=== PATIENT | male | born 1990 | race Caucasian/White ===

== ENCOUNTER 2019-10-04 13:55 | Emergency (ER) | payer SELFPAY ==
[2019-10-04] MEDS ORDERED: Albuterol 6.7 GM Inhaler INH ONE (15:06)
--- NOTE | 2019-10-04 15:16 | EDM.PDOC ---
ED HPI GENERAL MEDICAL PROBLEM - General Chief Complaint: Asthma Stated Complaint: NEEDS A INHALER REFILL Time Seen by Provider: 10/04/19 14:39 Source of Information: Reports: Patient, RN Notes Reviewed History Limitations: Reports: No Limitations - History of Present Illness INITIAL COMMENTS - FREE TEXT/NARRATIVE: Patient is a 29-year-old male who presents to the ED for the evaluation of his asthma. Patient states that he is up here for work, he has a history of asthma , and he ran out of his inhaler a few days ago. He states that he takes his inhaler as needed. He is being cared for by a primary care provider in [place] at the time, and has not established care in this area. Patient states he is having an increased tight cough over the last few days since he ran out of his inhaler, but is not having any fevers or chills or any other cold-like symptoms. He comes to the ER today for a refill of his albuterol inhaler. - Related Data Allergies Allergy/AdvReac Type Severity Reaction Status Date / Time Penicillins Allergy Airway Verified 10/04/19 14:41 Tightness ketchup Allergy Rash Uncoded 10/04/19 14:41 Home Meds: Home Meds Albuterol [Proventil HFA] 1 puff INH Q4H PRN #1 inhaler 10/04/19 [Rx] Past Medical History Respiratory History: Reports: Asthma Dermatologic History: Reports: Eczema Social & Family History - Tobacco Use Smoking Status *Q: Current Every Day Smoker Years of Tobacco use: 15 Packs/Tins Daily: 1 - Caffeine Use Caffeine Use: Reports: Coffee - Recreational Drug Use Recreational Drug Use: No ED ROS GENERAL - Review of Systems Review Of Systems: Comprehensive ROS is negative, except as noted in HPI. Constitutional: Denies: Fever, Chills Respiratory: Reports: Cough. Denies: Shortness of Breath, Wheezing Cardiovascular: Denies: Chest Pain GI/Abdominal: Denies: Abdominal Pain, Nausea, Vomiting ED EXAM, GENERAL - Physical Exam Exam: See Below Exam Limited By: No Limitations General Appearance: Alert, WD/WN, No Apparent Distress Throat/Mouth: Normal Inspection, Normal Lips, Normal Teeth, Normal Gums, Normal Oropharynx, Normal Voice, No Airway Compromise Head: Atraumatic, Normocephalic Neck: Normal Inspection Respiratory/Chest: No Respiratory Distress, Lungs Clear (slightly diminished breath sounds bilaterally), Normal Breath Sounds, No Accessory Muscle Use, Chest Non-Tender Cardiovascular: Normal Peripheral Pulses, Regular Rate, Rhythm, No Edema, No Murmur Peripheral Pulses: 3+: Radial (L), Radial (R) Neurological: Alert, Oriented, Normal Cognition, No Motor/Sensory Deficits Psychiatric: Normal Affect, Normal Mood Skin Exam: Warm, Dry, Intact, Normal Color, No Rash Course - Vital Signs Last Recorded V/S: Last Vital Signs Temp 99.0 F 10/04/19 14:46 Pulse 75 10/04/19 14:46 Resp 20 10/04/19 14:46 BP 135/78 10/04/19 14:46 Pulse Ox 94 L 10/04/19 14:46 - Orders/Labs/Meds Orders: Active Orders 24 hr Category Date Time Status RT Post Treatment Assessment [RC] Click to Edit Care 10/04/19 15:07 Ordered RT Pre-Treatment Assessment [RC] Click to Edit Care 10/04/19 15:07 Ordered Albuterol [Proventil HFA] Med 10/04/19 15:06 Once See Dose Instructions INH ONETIME ONE Medication Orders Albuterol (Proventil Hfa) 0 gm INH ONETIME ONE Stop: 10/04/19 15:07 Meds: Medications Generic Name Dose Route Start Last Admin Trade Name Levar PRN Reason Stop Dose Admin Albuterol 0 gm 10/04/19 15:06 Proventil Hfa INH 10/04/19 15:07 ONETIME ONE - Re-Assessments/Exams Free Text/Narrative Re-Assessment/Exam: 10/04/19 15:17 Patient presents to the ED for a refill of his albuterol inhaler. At this time I will provide this to the patient, and he will need to follow-up with a primary care provider, I did suggest since he is living in [place] that he follow-up at [facility] with Georgina Patel, who is a PA there. They are usually pretty quick to get patients in. Otherwise he is more than welcome to establish care at our facility as well. He states that he will establish care with a primary care provider, as he will need a refill of his Advair inhaler sometime shortly as well. He will be given 1 inhaler in the ER today, and I did send a prescription to the [place] drug store for another. Departure - Departure Time of Disposition: 15:18 Disposition: Home, Self-Care 01 Condition: Good Clinical Impression: Encounter for medication refill, History of asthma - Discharge Information *PRESCRIPTION DRUG MONITORING PROGRAM REVIEWED*: No *COPY OF PRESCRIPTION DRUG MONITORING REPORT IN PATIENT MERRY: No Instructions: Medicine Refill at the Emergency Department, Asthma, Adult, Easy- to-Read Referrals: PCP,None [Primary Care Provider] - Additional Instructions: You were evaluated at the ER today regarding your asthma and need for a refill of your inhaler. You were given an inhaler at today's ER visit, and a prescription was sent on your behalf to the [place] pharmacy. You will need to establish care with a primary care provider, if the [place] clinic for herbal to you, their telephone number is [phone], please call Sunday morning and try to establish care with a provider at that facility, they are open Sunday through Sunday from around 8 AM to 4 PM. You may also follow-up with our clinic, for further management, any family practice provider would be able to provide you with the services. Please do not hesitate to return to the ER at any time if your symptoms should change or worsen. Sepsis Event Note - Evaluation Sepsis Screening Result: No Definite Risk - Focused Exam Vital Signs: Vital Signs Temp Pulse Resp BP Pulse Ox 10/04/19 14:46 99.0 F 75 20 135/78 94 L Date Exam was Performed: 10/04/19 Time Exam was Performed: 15:07 - My Orders Last 24 Hours: My Active Orders 10/04/19 15:06 Albuterol [Proventil HFA] See Dose Instructions INH ONETIME ONE 10/04/19 15:07 RT Post Treatment Assessment [RC] Click to Edit RT Pre-Treatment Assessment [RC] Click to Edit - Assessment/Plan Last 24 Hours: My Active Orders 10/04/19 15:06 Albuterol [Proventil HFA] See Dose Instructions INH ONETIME ONE 10/04/19 15:07 RT Post Treatment Assessment [RC] Click to Edit RT Pre-Treatment Assessment [RC] Click to Edit
== END 2019-10-04 15:36 | disposition home or self-care (01) ==
LOC: JD.ED 13:55
DX: Z76.0 Encounter for issue of repeat prescription (principal); J45.909 Unspecified asthma, uncomplicated; F17.210 Nicotine dependence, cigarettes, uncomplicated; Z88.0 Allergy status to penicillin; Z91.018 Allergy to other foods
CPT/HCPCS: 99282; A9270; 99283

== ENCOUNTER 2020-03-28 12:06 | Emergency (ER) | payer SELFPAY ==
[2020-03-28] MEDS ORDERED: Albuterol 6.7 GM Inhaler INH ONE (12:32)
--- NOTE | 2020-03-28 12:36 | EDM.PDOC ---
ED HPI GENERAL MEDICAL PROBLEM - General Chief Complaint: Respiratory Problem Stated Complaint: SOB Time Seen by Provider: 03/28/20 12:29 Source of Information: Reports: Patient History Limitations: Reports: No Limitations - History of Present Illness INITIAL COMMENTS - FREE TEXT/NARRATIVE: The patient presents with shortness of breath. He has a history of asthma and he is on an inhaler. His inhaler is out and he does not get paid until tomorrow. He has no fever, chills, cough, congestion, runny nose, or chest pain. Onset: Gradual Severity: Mild Improves with: Reports: None Worsens with: Reports: None Associated Symptoms: Reports: Shortness of Breath. Denies: Chest Pain, Cough, Fever/Chills, Headaches, Nausea/Vomiting - Related Data Allergies Allergy/AdvReac Type Severity Reaction Status Date / Time Penicillins Allergy Airway Verified 03/28/20 12:24 Tightness ketchup Allergy Rash Uncoded 03/28/20 12:24 Home Meds: Home Meds Albuterol [Proventil HFA] 1 puff INH Q4H PRN #1 inhaler 10/04/19 [Rx] Past Medical History HEENT History: Reports: None Cardiovascular History: Reports: None Respiratory History: Reports: Asthma Gastrointestinal History: Reports: None Genitourinary History: Reports: None Musculoskeletal History: Reports: Fracture Neurological History: Reports: None Psychiatric History: Reports: None Endocrine/Metabolic History: Reports: Obesity/BMI 30+ Hematologic History: Reports: None Immunologic History: Reports: None Oncologic (Cancer) History: Reports: None Dermatologic History: Reports: Eczema - Infectious Disease History Infectious Disease History: Reports: None - Past Surgical History Musculoskeletal Surgical History: Reports: Shoulder Replacement Social & Family History - Tobacco Use Smoking Status *Q: Never Smoker - Caffeine Use Caffeine Use: Reports: None - Recreational Drug Use Recreational Drug Use: No ED ROS GENERAL - Review of Systems Review Of Systems: See Below Constitutional: Reports: No Symptoms HEENT: Reports: No Symptoms Respiratory: Reports: Shortness of Breath, Wheezing. Denies: Cough Cardiovascular: Reports: No Symptoms Endocrine: Reports: No Symptoms GI/Abdominal: Reports: No Symptoms ED EXAM, GENERAL - Physical Exam Exam: See Below Exam Limited By: No Limitations General Appearance: Alert, No Apparent Distress Ears: Normal External Exam Nose: Normal Inspection Head: Atraumatic, Normocephalic Neck: Normal Inspection Respiratory/Chest: No Respiratory Distress, Wheezing Cardiovascular: Regular Rate, Rhythm, No Edema, No Murmur GI/Abdominal: Soft, Non-Tender, No Organomegaly, No Mass Extremities: Normal Inspection Neurological: Alert, Oriented, No Motor/Sensory Deficits Course - Vital Signs Last Recorded V/S: Last Vital Signs Temp 97.6 F 03/28/20 12:21 Pulse 77 03/28/20 12:21 Resp 20 03/28/20 12:21 BP 148/99 H 03/28/20 12:21 Pulse Ox 93 L 03/28/20 12:21 - Orders/Labs/Meds Orders: Active Orders 24 hr Category Date Time Status RT Post Treatment Assessment [RC] Click to Edit Care 03/28/20 12:32 Ordered RT Pre-Treatment Assessment [RC] Click to Edit Care 03/28/20 12:32 Ordered Albuterol [Proventil HFA] Med 03/28/20 12:32 Once See Dose Instructions INH ONETIME ONE - Re-Assessments/Exams Free Text/Narrative Re-Assessment/Exam: 03/28/20 12:35 I have ordered an albuterol inhaler. Departure - Departure Time of Disposition: 12:35 Disposition: Home, Self-Care 01 Condition: Good Clinical Impression: Exacerbation of asthma Qualifiers: Asthma severity: mild Asthma persistence: intermittent Qualified Code(s): J45.21 - Mild intermittent asthma with (acute) exacerbation - Discharge Information *PRESCRIPTION DRUG MONITORING PROGRAM REVIEWED*: Not Applicable *COPY OF PRESCRIPTION DRUG MONITORING REPORT IN PATIENT MERRY: Not Applicable Referrals: PCP,None [Primary Care Provider] - Additional Instructions: Use the inhaler 2 puffs every 4 to 6 hours as needed for shortness of breath and wheezing. Please return if you are worse. Sepsis Event Note (ED) - Evaluation Sepsis Screening Result: No Definite Risk - Focused Exam Vital Signs: Vital Signs Temp Pulse Resp BP Pulse Ox 03/28/20 12:21 97.6 F 77 20 148/99 H 93 L - My Orders Last 24 Hours: My Active Orders 03/28/20 12:32 RT Post Treatment Assessment [RC] Click to Edit RT Pre-Treatment Assessment [RC] Click to Edit Albuterol [Proventil HFA] See Dose Instructions INH ONETIME ONE - Assessment/Plan Last 24 Hours: My Active Orders 03/28/20 12:32 RT Post Treatment Assessment [RC] Click to Edit RT Pre-Treatment Assessment [RC] Click to Edit Albuterol [Proventil HFA] See Dose Instructions INH ONETIME ONE
== END 2020-03-28 12:42 | disposition home or self-care (01) ==
LOC: JD.ED 12:06
DX: J45.21 Mild intermittent asthma with (acute) exacerbation (principal); E66.9 Obesity, unspecified; Z88.0 Allergy status to penicillin; Z91.018 Allergy to other foods; Z98.890 Other specified postprocedural states; Z68.30 Body mass index [BMI] 30.0-30.9, adult
CPT/HCPCS: 99284; A9270; 99283

== ENCOUNTER 2020-05-13 16:39 | Emergency (ER) | payer SELFPAY ==
--- NOTE | 2020-05-13 18:17 | EDM.PDOC ---
ED HPI GENERAL MEDICAL PROBLEM - General Chief Complaint: Respiratory Problem Stated Complaint: ANXIETY ISSUES Time Seen by Provider: 05/13/20 17:07 Source of Information: Reports: Patient History Limitations: Reports: No Limitations - History of Present Illness INITIAL COMMENTS - FREE TEXT/NARRATIVE: Mr. Edwards is a very pleasant 30-year-old gentleman with a past medical history significant for suspected asthma and untreated anxiety, who, medical records indicate, was seen in this ED on both 10/04/2019 and 03/28/2020, both for tautness of breath, possibly due to an asthma exacerbation, and request for refills of his albuterol MDI. He now presents to the ED because "I thought I was having a heart attack". The patient states that he has been abstaining from coffee recently, but drank some between 6:00 and 8:00 this morning. He then developed chest tightness, lightheadedness, rapid palpitations, and dyspnea around 10:00 until noon. He has coughed occasionally, productive of greenish sputum. No recent fever. The patient states that he used his albuterol MDI 10 or 20 times over the span of a few hours, without any significant improvement in his symptoms. The patient states that he has a history of anxiety, but has not had any treatment for the past 1 to 2 years. He states that he has been under increased stress at work recently. He states that he has a history of heroin abuse, clean for 8 years, but that coworkers have been using methamphetamine, and he is afraid of sliding back into drug use. He states that his employer is aware of the methamphetamine, but is not doing anything about it. He states that he plans to find a new job. The patient states that he was seen at the walk-in clinic about 1 week ago, also for an albuterol refill. He was prescribed albuterol by nebulizer, which he does not yet have. The patient states that he does not own a peak flow meter or space chamber. He has not previously undergone PFTs. Here in the ED, the patient's initial BP is found to be mildly elevated at 136/95, otherwise, he is hemodynamically stable, afebrile, saturating 98% on room air. Other than the above symptoms, the patient denies having a recent fever, chills, sore throat, ear pain, nasal or sinus congestion, chest pain, palpitations, nausea, vomiting, constipation, diarrhea, abdominal pain, urinary symptoms, recent weight gain or weight loss, recent bloody bowel movements or black bowel movements, recent joint aches, headaches, or rashes. The patient does not have a PCP. - Related Data Allergies Allergy/AdvReac Type Severity Reaction Status Date / Time Penicillins Allergy Severe Airway Verified 05/13/20 17:12 Tightness ketchup Allergy Severe Rash Uncoded 05/13/20 17:12 Home Meds: Home Meds Albuterol [Proventil HFA] 1 puff INH Q4H PRN #1 inhaler 10/04/19 [Rx] Past Medical History Respiratory History: Reports: Asthma (suspected, not tested) Musculoskeletal History: Reports: Fracture (right scapula) Psychiatric History: Reports: Anxiety (untreated x 2017) Endocrine/Metabolic History: Reports: Obesity/BMI 30+ Dermatologic History: Reports: Eczema - Past Surgical History Musculoskeletal Surgical History: Reports: Shoulder Surgery (right scapula fixation) Social & Family History - Tobacco Use Smoking Status *Q: Current Every Day Smoker Years of Tobacco use: 18 Packs/Tins Daily: 0.3 Packs/Tins Daily Comment: Down from 1 ppd - Caffeine Use Caffeine Use: Reports: Coffee, Energy Drinks, Soda Other Caffeine Use: last energy drink about 1 month ago - Alcohol Use Alcohol Use History: No - Recreational Drug Use Recreational Drug Use: Yes Drug Use in Last 12 Months: Yes Recreational Drug Type: Reports: Heroin (last smoked 2011), Marijuana/Hashish (smokes monthly) - Living Situation & Occupation Living situation: Reports: Single, Alone Occupation: Employed ([employer]) ED ROS GENERAL - Review of Systems Review Of Systems: Comprehensive ROS is negative, except as noted in HPI. ED EXAM, GENERAL - Physical Exam Exam: See Below Exam Limited By: No Limitations General Appearance: Alert, WD/WN, No Apparent Distress Eye Exam: Bilateral Eye: EOMI, Normal Inspection Ears: Normal External Exam, Hearing Grossly Normal Nose: Normal Inspection Throat/Mouth: Normal Inspection, Normal Lips, Normal Voice, No Airway Compromise Head: Atraumatic, Normocephalic Neck: Normal Inspection, Full Range of Motion Respiratory/Chest: No Respiratory Distress, Lungs Clear, Normal Breath Sounds, No Accessory Muscle Use. No: Decreased Breath Sounds, Crackles, Rhonchi, Wheezing, Stridor, Prolonged Expiration Cardiovascular: Normal Peripheral Pulses, Regular Rate, Rhythm (not tachycardia), No Edema, No Gallop, No JVD, No Murmur, No Rub Peripheral Pulses: 3+: Radial (L), Radial (R) GI/Abdominal: Normal Bowel Sounds, Soft, Non-Tender, No Organomegaly, No Distention, No Abnormal Bruit, No Mass (Male) Exam: Deferred Rectal (Males) Exam: Deferred Back Exam: Normal Inspection, Full Range of Motion, NT Extremities: Normal Inspection, Normal Range of Motion, No Pedal Edema, Normal Capillary Refill Neurological: Alert, Oriented, Normal Cognition, No Motor/Sensory Deficits Psychiatric: Normal Affect Skin Exam: Warm, Dry, Intact, Normal Color, No Rash Course - Vital Signs Last Recorded V/S: Last Vital Signs Temp 37.1 C 05/13/20 17:04 Pulse 98 05/13/20 17:04 Resp 20 05/13/20 17:04 BP 136/95 H 05/13/20 17:04 Pulse Ox 98 05/13/20 17:04 - Orders/Labs/Meds Orders: Active Orders 24 hr Category Date Time Status CORONAVIRUS COVID-19 PCR [facility] Stat Lab 05/13/20 18:51 Ordered - Re-Assessments/Exams Free Text/Narrative Re-Assessment/Exam: 05/13/20 18:12 As above, the patient experienced a panic attack this morning, after drinking coffee this morning, which he has not done recently. His symptoms have largely abated by now. He was asking if I could give him something to make him feel better, but he drove himself here, therefore benzodiazepines would not be appro priate. With respect to his possibly having asthma, I cannot tell if the patient has asthma or not. He has never undergone pulmonary function tests, and while he feels like he was wheezing here in the ED, his lungs are in fact completely clear to auscultation bilaterally. I will have the respiratory therapist provide him a peak flow meter and a space chamber. I explained to him that he should not use his albuterol unless his peak flow is in the yellow or red zone. I explained why he needs to shake his MDI for a full minute before actuating it. We discussed the need for him to quit smoking, at length. I will refer him to the clinic where he can be scheduled for PFTs, and also discuss treatment options for his anxiety disorder. The patient will be swabbed for the send-out SARS-CoV-2 virus test prior to discharge. Lastly, I will provide the patient a note for work through 05/17/2020. Departure - Departure Time of Disposition: 18:15 Disposition: Home, Self-Care 01 Condition: Good Clinical Impression: Panic attack - Discharge Information *PRESCRIPTION DRUG MONITORING PROGRAM REVIEWED*: Not Applicable *COPY OF PRESCRIPTION DRUG MONITORING REPORT IN PATIENT MERRY: Not Applicable Instructions: Panic Attack Referrals: Emily Matias NP [Nurse Practitioner] - PCP,None [Primary Care Provider] - Forms: ED Department Discharge, ED Return to Work/School Form Additional Instructions: You were seen in the emergency room after developing chest tightness, l ightheadedness, rapid palpitations, and shortness of breath this morning, after drinking coffee. Based on your history and physical examination, you were suffering from a panic attack, not an asthma exacerbation. You have been provided a peak flow meter and a space chamber. If you are having shortness of breath with wheezing, with or without a cough, check your peak flow. If it is in the green zone, take albuterol by shaking your MDI for a full minute, then actuating it into a space chamber. You may take a second inhalation off the space chamber, even if you have actuated the albuterol MDI only once. If your peak flow is in the green zone, DO NOT take albuterol. As discussed, we recommend that you check your peak flow 2 or 3 times a week, even when you are feeling well. If your peak flow drops down into the yellow or red zone, even if you are feeling well, please contact your provider, as this indicates that you may suffer an asthma exacerbation within the next 2 weeks. We recommend that you follow-up with Emily Matias NP, or 1 of the other providers in the clinic, to establish a PCP. They can then schedule you for pulmonary function tests (PFTs), to determine once and for all if you have asthma. Additionally, you can discuss treatment options for your anxiety. You have been swabbed to test for the SARS-CoV-2 virus. You should expect results within 24 to 48 hours, however, this may be somewhat delayed due to the weekend. A note to be off work until 05/17/2020, has been provided. If any other problems, please do not hesitate to return to the ER. Sepsis Event Note (ED) - Evaluation Sepsis Screening Result: No Definite Risk - Focused Exam Vital Signs: Vital Signs Temp Pulse Resp BP Pulse Ox 05/13/20 17:04 37.1 C 98 20 136/95 H 98 - My Orders Last 24 Hours: My Active Orders 05/13/20 18:51 CORONAVIRUS COVID-19 PCR [facility] Stat - Assessment/Plan Last 24 Hours: My Active Orders 05/13/20 18:51 CORONAVIRUS COVID-19 PCR [facility] Stat
== END 2020-05-13 19:00 | disposition home or self-care (01) ==
LOC: JD.ED 16:39
DX: F41.0 Panic disorder [episodic paroxysmal anxiety] (principal); J45.909 Unspecified asthma, uncomplicated; E66.9 Obesity, unspecified; F17.210 Nicotine dependence, cigarettes, uncomplicated; Z68.30 Body mass index [BMI] 30.0-30.9, adult; Z20.828 Contact with and (suspected) exposure to other viral communicable diseases; Z88.0 Allergy status to penicillin; Z91.048 Other nonmedicinal substance allergy status
CPT/HCPCS: 99282; 99284; U0002

== ENCOUNTER 2020-10-14 18:30 | Inpatient (IN) | payer MEDICAID, OTHER ==
[2020-10-14] MEDS ORDERED: Albuterol 0.083% 2.5 MG/3 ML Neb Soln ONE (18:50)
[2020-10-14] MEDS ORDERED: Albuterol 0.083% 2.5 MG/3 ML Neb Soln NEB ONE (18:52)
[2020-10-14] MEDS ORDERED: methylPREDNISolone Sodium Succinate 125 MG/2 ML SDV ONE (18:53)
[2020-10-14] MEDS ORDERED: LORazepam 2 MG/ML SDV ONE (18:53)
[2020-10-14] MEDS ORDERED: methylPREDNISolone Sodium Succinate 125 MG/2 ML SDV IVPUSH ONE (18:53)
[2020-10-14] MEDS ORDERED: LORazepam 2 MG/ML SDV IVPUSH ONE (18:53)
[2020-10-14] MEDS: Sodium Chloride 0.9% 10 ML Syringe FLUSH PRN (19:00)
[2020-10-14] MEDS ORDERED: Albuterol/Ipratropium 3.0-0.5 MG/3 ML Neb Soln NEB ONE (19:13)
--- NOTE | 2020-10-14 19:28 | EDM.PDOC ---
ED HPI GENERAL MEDICAL PROBLEM - General Chief Complaint: Respiratory Problem Stated Complaint: [facility] Time Seen by Provider: 10/14/20 19:03 Source of Information: Reports: Patient, Significant Other (Girlfriend) History Limitations: Reports: No Limitations - History of Present Illness INITIAL COMMENTS - FREE TEXT/NARRATIVE: Mr. Edwards is a pleasant 30-year-old gentleman who is now brought to the ED by EMS with difficulty breathing. He has a history of presumptive asthma. He states that he developed dyspnea with wheezing around 14:00 this afternoon, and that since then, he has taken 60 to 80 puffs from his albuterol MDI, using a space chamber, in addition to his usual 1 puff of Advair twice daily, without improvement of his symptoms. He has a peak flow meter, but has not used it in a while, and does not know what his normal peak flow is. EMS gave an additional 2 albuterol nebs en route to the ED, still with no improvement in his symptoms. The patient states that he "lives" on albuterol. He has never been evaluated by a Senior Visual Designer or undergone PFTs. Additionally, the patient is a committed smoker. Here in the ED, the patient is found to be tachycardic at 130 bpm, tachypneic at 24 rpm, and hypoxemic at 92% on 6 L of oxygen per nasal cannula. He is afebrile. Other than frequent episodes of dyspnea with wheezing, the patient denies having a recent fever, chills, sore throat, ear pain, nasal or sinus congestion, cough, dyspnea, chest pain, palpitations, nausea, vomiting, constipation, diarrhea, abdominal pain, urinary symptoms, recent weight gain or weight loss, recent bloody bowel movements or black bowel movements, recent joint aches, headaches, or rashes. The patient's PCP is Dr. Tenzin Rodriguez. He has not received an influenza vaccine this season, and declined an offer to get one here in the ED. - Related Data Allergies Allergy/AdvReac Type Severity Reaction Status Date / Time Penicillins Allergy Severe Airway Verified 10/14/20 18:43 Tightness ketchup Allergy Severe Rash Uncoded 10/14/20 18:43 Home Meds: Home Meds Albuterol [Proventil HFA] 1 puff INH Q4H PRN #1 inhaler 10/04/19 [Rx] Fluticasone Propion/Salmeterol [Advair 250-50 Diskus] 1 inh INH BID 10/14/20 [History] Past Medical History Respiratory History: Reports: Asthma (presumed, never tested) Musculoskeletal History: Reports: Fracture (right clavicle) Psychiatric History: Reports: Anxiety (untreated) Endocrine/Metabolic History: Reports: Obesity/BMI 30+ Dermatologic History: Reports: Eczema - Past Surgical History Musculoskeletal Surgical History: Reports: ORIF (right clavicle) Social & Family History - Tobacco Use Tobacco Use Status *Q: Current Every Day Tobacco User Years of Tobacco use: 18 Packs/Tins Daily: 1 - Caffeine Use Caffeine Use: Reports: Coffee, Soda Other Caffeine Use: last energy drink about 1 month ago - Alcohol Use Alcohol Use History: No - Recreational Drug Use Recreational Drug Use: Yes Drug Use in Last 12 Months: Yes Recreational Drug Type: Reports: Heroin (last smoked 2011), Marijuana/Hashish (Smoked a "Gerson" = MJ mixed with other drugs, mid-Aug 2019) - Living Situation & Occupation Living situation: Reports: Single, Alone Occupation: Employed ([employer]) ED ROS GENERAL - Review of Systems Review Of Systems: Comprehensive ROS is negative, except as noted in HPI. ED EXAM, GENERAL - Physical Exam Exam: See Below Exam Limited By: No Limitations General Appearance: Alert, WD/WN, Anxious, Moderate Distress (conversational dyspnea) Eye Exam: Bilateral Eye: EOMI, Normal Inspection Ears: Normal External Exam, Hearing Grossly Normal Nose: Normal Inspection Throat/Mouth: Normal Inspection, Normal Lips, Normal Voice, No Airway Compromise Head: Atraumatic, Normocephalic Neck: Normal Inspection, Full Range of Motion Respiratory/Chest: No Accessory Muscle Use, Decreased Breath Sounds, Wheezing (expiratory, throughout), Prolonged Expiration. No: Crackles, Rhonchi, Stridor Cardiovascular: Normal Peripheral Pulses, No Edema, No Gallop, No JVD, No Murmur, No Rub, Tachycardia (regular) Peripheral Pulses: 3+: Radial (L), Radial (R) GI/Abdominal: Normal Bowel Sounds, Soft, Non-Tender, No Organomegaly, No Distention, No Abnormal Bruit, No Mass Back Exam: Normal Inspection, Full Range of Motion, NT Extremities: Normal Inspection, Normal Range of Motion, No Pedal Edema, Normal Capillary Refill Neurological: Alert, Oriented, Normal Cognition, No Motor/Sensory Deficits Psychiatric: Normal Affect Skin Exam: Warm, Intact, Normal Color, No Rash, Diaphoretic #1 Interpretation EKG Date: 10/14/20 Time: 19:30 Rhythm: Other (Sinus tachycardia) Rate (Beats/Min): 127 [place]xton: LAD-Left Axton Deviation (borderline) P-Wave: Enlarged (LAE) QRS: Other (Late transition) ST-T: Normal QT: Normal Comparison: NA - No Prior EKG Course - Vital Signs Last Recorded V/S: Last Vital Signs Temp 36.7 C 10/15/20 02:13 Pulse 122 H 10/15/20 02:30 Resp 29 H 10/15/20 02:13 BP 99/36 L 10/15/20 02:00 Pulse Ox 96 10/15/20 02:30 - Orders/Labs/Meds Orders: Active Orders 24 hr Category Date Time Status Oxygen Therapy [RC] ASDIRECTED Care 10/14/20 18:53 Active Ang Chest [CT] Stat Exams 10/14/20 19:47 Taken Chest 1V Frontal [CR] Stat Exams 10/14/20 18:54 Taken CULTURE BLOOD [BC] Stat Lab 10/14/20 19:30 Received CULTURE BLOOD [BC] Stat Lab 10/14/20 19:39 Received Sodium Chloride 0.9% [Normal Saline] 1,000 ml Med 10/14/20 20:00 Active IV ASDIRECTED Sodium Chloride 0.9% [Saline Flush] Med 10/14/20 18:53 Active 10 ml FLUSH ASDIRECTED PRN Blood Culture x2 Reflex Set [OM.PC] Stat Oth 10/14/20 19:13 Ordered Peripheral IV Insertion Adult [OM.PC] Stat Oth 10/14/20 18:53 Ordered Medication Orders Sodium Chloride (Normal Saline) 1,000 mls @ 100 mls/hr IV ASDIRECTED YANI Last Admin: 10/14/20 19:59 Dose: 100 mls/hr Documented by: NACHO Sodium Chloride (Saline Flush) 10 ml FLUSH ASDIRECTED PRN PRN Reason: Keep Vein Open Last Admin: 10/14/20 19:00 Dose: 10 ml Documented by: NACHO Labs: Laboratory Tests 10/14/20 10/14/20 10/14/20 Range/Units 18:39 18:39 18:39 WBC 9.30 H (4.23-9.07) K/mm3 RBC 5.51 (4.63-6.08) M/mm3 Hgb 16.4 (13.7-17.5) gm/dl Hct 50.1 (40.1-51.0) % MCV 90.9 (79.0-92.2) fl MCH 29.8 (25.7-32.2) pg MCHC 32.7 (32.2-35.5) g/dl RDW Std Deviation 41.5 (35.1-43.9) fL Plt Count 232 (163-337) K/mm3 MPV 10.4 (9.4-12.3) fl Neutrophils % (Manual) 73 H (40-60) % Band Neutrophils % 0 (0-10) % Lymphocytes % (Manual) 16 L (20-40) % Atypical Lymphs % 0 % Monocytes % (Manual) 6 (2-10) % Eosinophils % (Manual) 5 (0.8-7.0) % Basophils % (Manual) 0 L (0.2-1.2) Platelet Estimate Adequate RBC Morph Comment Normal D-Dimer, Quantitative 11.50 H (0.19-0.50) mg/L Puncture Site ABG pH (7.35-7.45) ABG pCO2 (35.0-45.0) mmHg ABG pO2 (80.0-100.0) mmHg ABG HCO3 (22.0-26.0) meq/L ABG O2 Saturation (96.0-97.0) % ABG Base Excess (-2-2.0) Micah Test A-a Gradient mmHg O2 Delivery Device Oxygen Flow Rate FiO2 (21.00-100.00) % Sodium 142 (136-145) mEq/L Potassium 3.5 (3.5-5.1) mEq/L Chloride 106 (98-107) mEq/L Carbon Dioxide 24 (21-32) mEq/L Anion Gap 15.5 H (5-15) BUN 12 (7-18) mg/dL Creatinine 1.2 (0.7-1.3) mg/dL Est Cr Clr Drug Dosing 97.00 mL/min Estimated GFR (MDRD) > 60 (>60) mL/min BUN/Creatinine Ratio 10.0 L (14-18) Glucose 103 (74-106) mg/dL Lactic Acid (0.4-2.0) mmol/L Calcium 9.0 (8.5-10.1) mg/dL Magnesium 2.0 (1.8-2.4) mg/dl Total Bilirubin 0.3 (0.2-1.0) mg/dL AST 17 (15-37) U/L ALT 27 (16-63) U/L Alkaline Phosphatase 132 H (46-116) U/L Troponin I < 0.017 (0.00-0.056) ng/mL NT-Pro-B Natriuret Pep (0-125) pg/mL Total Protein 7.9 (6.4-8.2) g/dl Albumin 3.9 (3.4-5.0) g/dl Globulin 4.0 gm/dL Albumin/Globulin Ratio 1.0 (1-2) Urine Opiates Screen (CJPHAY=712) Ur Buprenorphine Scrn (CUTOFF=10) Ur Oxycodone Screen (KWY0SG=016) Urine Methadone Screen (FNI0EK=460) Ur Propoxyphene Screen (RIVWUP=833) Ur Barbiturates Screen (QMMWSL=590) Ur Tricyclics Screen (TQFSUT=640) Ur Phencyclidine Scrn (CUTOFF=25) Ur Amphetamine Screen (BTVFXX=765) U Methamphetamines Scrn (XJYVAT=495) U Benzodiazepines Scrn (BNHMDQ=120) U Cocaine Metab Screen (GZDNRU=758) U Marijuana (THC) Screen (CUTOFF=50) Influenza Type A RNA (NEGATIVE) Influenza Type B RNA (NEGATIVE) SARS-CoV-2 RNA (KAREN) (NEGATIVE) 10/14/20 10/14/20 10/14/20 Range/Units 18:39 19:15 19:28 WBC (4.23-9.07) K/mm3 RBC (4.63-6.08) M/mm3 Hgb (13.7-17.5) gm/dl Hct (40.1-51.0) % MCV (79.0-92.2) fl MCH (25.7-32.2) pg MCHC (32.2-35.5) g/dl RDW Std Deviation (35.1-43.9) fL Plt Count (163-337) K/mm3 MPV (9.4-12.3) fl Neutrophils % (Manual) (40-60) % Band Neutrophils % (0-10) % Lymphocytes % (Manual) (20-40) % Atypical Lymphs % % Monocytes % (Manual) (2-10) % Eosinophils % (Manual) (0.8-7.0) % Basophils % (Manual) (0.2-1.2) Platelet Estimate RBC Morph Comment D-Dimer, Quantitative (0.19-0.50) mg/L Puncture Site Lt radial ABG pH 7.31 L (7.35-7.45) ABG pCO2 41.4 (35.0-45.0) mmHg ABG pO2 81.0 (80.0-100.0) mmHg ABG HCO3 20.2 L (22.0-26.0) meq/L ABG O2 Saturation 94.6 L (96.0-97.0) % ABG Base Excess -5.4 L (-2-2.0) Micah Test Positive A-a Gradient 181 mmHg O2 Delivery Device Nasal cannula Oxygen Flow Rate 6.0 FiO2 44.00 (21.00-100.00) % Sodium (136-145) mEq/L Potassium (3.5-5.1) mEq/L Chloride (98-107) mEq/L Carbon Dioxide (21-32) mEq/L Anion Gap (5-15) BUN (7-18) mg/dL Creatinine (0.7-1.3) mg/dL Est Cr Clr Drug Dosing mL/min Estimated GFR (MDRD) (>60) mL/min BUN/Creatinine Ratio (14-18) Glucose (74-106) mg/dL Lactic Acid (0.4-2.0) mmol/L Calcium (8.5-10.1) mg/dL Magnesium (1.8-2.4) mg/dl Total Bilirubin (0.2-1.0) mg/dL AST (15-37) U/L ALT (16-63) U/L Alkaline Phosphatase (46-116) U/L Troponin I (0.00-0.056) ng/mL NT-Pro-B Natriuret Pep 93 (0-125) pg/mL Total Protein (6.4-8.2) g/dl Albumin (3.4-5.0) g/dl Globulin gm/dL Albumin/Globulin Ratio (1-2) Urine Opiates Screen Negative (JITJTA=059) Ur Buprenorphine Scrn Negative (CUTOFF=10) Ur Oxycodone Screen Negative (JOQ9UV=062) Urine Methadone Screen Negative (UZN7WY=899) Ur Propoxyphene Screen Negative (CFFTND=558) Ur Barbiturates Screen Negative (SUTMUL=725) Ur Tricyclics Screen Negative (CCOIXC=143) Ur Phencyclidine Scrn Negative (CUTOFF=25) Ur Amphetamine Screen Presumptive positive H (VUYHRW=049) U Methamphetamines Scrn Presumptive positive H (FWMYDY=325) U Benzodiazepines Scrn Presumptive positive H (AEFZPG=511) U Cocaine Metab Screen Negative (BJNKZT=762) U Marijuana (THC) Screen Presumptive positive H (CUTOFF=50) Influenza Type A RNA (NEGATIVE) Influenza Type B RNA (NEGATIVE) SARS-CoV-2 RNA (KAREN) (NEGATIVE) 10/14/20 10/14/20 Range/Units 19:30 21:08 WBC (4.23-9.07) K/mm3 RBC (4.63-6.08) M/mm3 Hgb (13.7-17.5) gm/dl Hct (40.1-51.0) % MCV (79.0-92.2) fl MCH (25.7-32.2) pg MCHC (32.2-35.5) g/dl RDW Std Deviation (35.1-43.9) fL Plt Count (163-337) K/mm3 MPV (9.4-12.3) fl Neutrophils % (Manual) (40-60) % Band Neutrophils % (0-10) % Lymphocytes % (Manual) (20-40) % Atypical Lymphs % % Monocytes % (Manual) (2-10) % Eosinophils % (Manual) (0.8-7.0) % Basophils % (Manual) (0.2-1.2) Platelet Estimate RBC Morph Comment D-Dimer, Quantitative (0.19-0.50) mg/L Puncture Site ABG pH (7.35-7.45) ABG pCO2 (35.0-45.0) mmHg ABG pO2 (80.0-100.0) mmHg ABG HCO3 (22.0-26.0) meq/L ABG O2 Saturation (96.0-97.0) % ABG Base Excess (-2-2.0) Micah Test A-a Gradient mmHg O2 Delivery Device Oxygen Flow Rate FiO2 (21.00-100.00) % Sodium (136-145) mEq/L Potassium (3.5-5.1) mEq/L Chloride (98-107) mEq/L Carbon Dioxide (21-32) mEq/L Anion Gap (5-15) BUN (7-18) mg/dL Creatinine (0.7-1.3) mg/dL Est Cr Clr Drug Dosing mL/min Estimated GFR (MDRD) (>60) mL/min BUN/Creatinine Ratio (14-18) Glucose (74-106) mg/dL Lactic Acid 1.0 (0.4-2.0) mmol/L Calcium (8.5-10.1) mg/dL Magnesium (1.8-2.4) mg/dl Total Bilirubin (0.2-1.0) mg/dL AST (15-37) U/L ALT (16-63) U/L Alkaline Phosphatase (46-116) U/L Troponin I (0.00-0.056) ng/mL NT-Pro-B Natriuret Pep (0-125) pg/mL Total Protein (6.4-8.2) g/dl Albumin (3.4-5.0) g/dl Globulin gm/dL Albumin/Globulin Ratio (1-2) Urine Opiates Screen (QQFBQQ=911) Ur Buprenorphine Scrn (CUTOFF=10) Ur Oxycodone Screen (UBN3BL=878) Urine Methadone Screen (UWR4BM=143) Ur Propoxyphene Screen (CDBRMD=753) Ur Barbiturates Screen (TATOTH=142) Ur Tricyclics Screen (TJFCQU=188) Ur Phencyclidine Scrn (CUTOFF=25) Ur Amphetamine Screen (WIGRAY=696) U Methamphetamines Scrn (WUWYMB=316) U Benzodiazepines Scrn (TDETCD=602) U Cocaine Metab Screen (JDTFXP=946) U Marijuana (THC) Screen (CUTOFF=50) Influenza Type A RNA Negative (NEGATIVE) Influenza Type B RNA Negative (NEGATIVE) SARS-CoV-2 RNA (KAREN) Negative (NEGATIVE) Meds: Medications Generic Name Dose Route Start Last Admin Trade Name Freq PRN Reason Stop Dose Admin Sodium Chloride 1,000 mls @ 100 mls/hr 10/14/20 20:00 10/14/20 19:59 Normal Saline IV 100 mls/hr ASDIRECTED YANI Administration Sodium Chloride 10 ml 10/14/20 18:53 10/14/20 19:00 Saline Flush FLUSH 10 ml ASDIRECTED PRN Administration Keep Vein Open Discontinued Medications Generic Name Dose Route Start Last Admin Trade Name Patelq PRN Reason Stop Dose Admin Acetaminophen 650 mg 10/14/20 21:35 10/14/20 22:23 Tylenol PO 10/14/20 21:36 Not Given NOW ONE Albuterol Confirm 10/14/20 18:50 10/14/20 18:57 Proventil Neb Soln Administered 10/14/20 18:51 Not Given Dose 2.5 mg .ROUTE .STK-MED ONE Albuterol 2.5 mg 10/14/20 18:52 10/14/20 18:55 Proventil Neb Soln NEB 10/14/20 18:53 2.5 mg ONETIME ONE Administration Albuterol/Ipratropium 3 ml 10/14/20 19:13 10/14/20 19:23 Duoneb 3.0-0.5 Mg/3 Ml NEB 10/14/20 19:14 3 ml ONETIME ONE Administration Lorazepam 0.5 mg 10/14/20 18:53 10/14/20 18:57 Ativan IVPUSH 10/14/20 18:54 0.5 mg ONETIME ONE Administration Lorazepam Confirm 10/14/20 18:53 10/14/20 18:57 Ativan Administered 10/14/20 18:54 Not Given Dose 2 mg .ROUTE .STK-MED ONE Lorazepam 1 mg 10/15/20 01:43 10/15/20 02:01 Ativan IVPUSH 10/15/20 01:44 1 mg ONETIME STA Administration Methylprednisolone Sodium Succinate 125 mg 10/14/20 18:53 10/14/20 18:58 Solu-Medrol IVPUSH 10/14/20 18:54 125 mg ONETIME ONE Administration Methylprednisolone Sodium Succinate Confirm 10/14/20 18:53 10/14/20 18:57 Solu-Medrol Administered 10/14/20 18:54 Not Given Dose 125 mg .ROUTE .STK-MED ONE - Re-Assessments/Exams Free Text/Narrative Re-Assessment/Exam: 10/14/20 19:16 As above, the patient has been feeling dyspneic with wheezing since around 14:00 this afternoon, without relief despite taking his usual Advair, 60 to 80 albuterol MDI puffs with a space chamber within the last few hours alone, 2 albuterol nebs per EMS, and receiving one additional albuterol neb here in the ED. He is quite tachycardic and diaphoretic, and, most concerning, has an oxygen saturation of 92% on 6 L of oxygen per nasal cannula. He has expiratory wheezing on auscultation and a prolonged expiratory phase, consistent with an asthma exacerbation. I have ordered a DuoNeb, along with several blood tests, 2 sets of blood cultures, an ABG, a urine drug screen, and an ECG. A portable chest x-ray, ordered at triage, has not yet been taken. I have ordered 1 DuoNeb, under the theory that the patient has not really taken as much albuterol as he claims, or that he has not been taking it properly, however, if the patient does not improve at all with the DuoNeb, I am not going to give any more, since he would be suffering from albuterol toxicity. At this point in time, the patient does not require intubation, however, he does have a conversational dyspnea, so we will need to keep a close eye on him while we allow the steroids to take effect. 10/14/20 19:53 Portable chest radiograph reviewed. The cardiac silhouette is within normal limits. No pulmonary vascular congestion. No pleural effusions seen on this AP view. No focal infiltrate. No pneumothorax. There is hyperinflation and bilateral diaphragmatic flattening. Right clavicle fixation hardware noted. Formal read per the Radiologist pending. The patient's CBC is remarkable for mild leukocytosis of 9.30, but with 0% bandemia, and the remainder of his CBC being unremarkable. His CMP is remarkable for an anion gap slightly elevated at 15.2, but with a bicarbonate normal at 24. His alkaline phosphatase is slightly elevated at 132, with the remainder of his CMP being unremarkable. His magnesium level is within normal limits at 2.0. His troponin is undetectably low. His pro-BNP is within normal limits at 93. His D-dimer is substantially elevated at 11.50. His ABG demonstrates a primary chronic respiratory acidosis with secondary mixed metabolic acidosis and metabolic alkalosis. Based on the above, I have ordered a CT angiogram of the chest to evaluate for a PE. The patient will be given IV fluid. 10/14/20 20:31 The patient's lactic acid level is within normal limits at 1.0. 10/14/20 21:09 CT angiogram of the chest is read by Sierra as "No acute findings." 10/14/20 22:29 The patient's urine drug screen is positive for amphetamine/methamphetamine, benzodiazepines, and marijuana. His swab for the SARS-CoV-2 virus and influenza virus has returned negative for both. 10/15/20 00:[address] Del Valle at 00:39. She accepted the patient for placement into observation, and asked that I write bridge orders. 10/15/20 01:43 Notified by Radha PEGUERO that the patient is requesting additional albuterol, stating that he cannot breathe. I went and reevaluated the patient. I noticed that he has his albuterol MDI in his hand, and it is possible that he has been using it while here in the ED. On examination, the patient still has expiratory wheezing, but overall is moving air better, with less wheezing. His oxygen saturation has improved, as well, now requiring 4 L of supplemental oxygen per nasal cannula, down from 6. Additionally, the patient is now less tachycardic than initially, now about 123 bpm. I explained to the patient that he is improving, albeit slowly, and that I am not recommending any additional albuterol overnight. I reexplained that we will place him into observation to allow the steroids that he received earlier to slowly do their work. The patient expressed understanding. He requested "something to calm my nerves". I have therefore ordered an additional milligram of IV lorazepam. 10/15/20 04:01 Departure - Departure Time of Disposition: 00:47 Disposition: Refer to Observation Condition: Fair Clinical Impression: Status asthmaticus, Methamphetamine abuse, Marijuana use - Discharge Information *PRESCRIPTION DRUG MONITORING PROGRAM REVIEWED*: Not Applicable *COPY OF PRESCRIPTION DRUG MONITORING REPORT IN PATIENT MERRY: Not Applicable Sepsis Event Note (ED) - Evaluation Sepsis Screening Result: No Definite Risk - Focused Exam Vital Signs: Vital Signs Temp Pulse Resp BP Pulse Ox Pulse Ox 10/15/20 00:00 106 H 26 H 134/84 94 L 10/14/20 21:48 90 L 10/14/20 21:45 116 H 20 135/90 87 L 10/14/20 21:10 97 10/14/20 20:30 124 H 20 146/91 H 93 L 10/14/20 20:00 128 H 24 H 123/90 93 L 10/14/20 19:50 128 H 24 H 145/92 H 92 L 10/14/20 19:00 130 H 24 H 139/92 H 92 L 10/14/20 18:52 91 L 10/14/20 18:50 135 H 24 H 91 L 10/14/20 18:39 37.0 C 134 H 24 H 142/98 H 94 L - My Orders Last 24 Hours: My Active Orders 10/14/20 19:13 Blood Culture x2 Reflex Set [OM.PC] Stat 10/14/20 19:30 CULTURE BLOOD [BC] Stat 10/14/20 19:39 CULTURE BLOOD [BC] Stat 10/14/20 19:47 Ang Chest [CT] Stat 10/14/20 20:00 Sodium Chloride 0.9% [Normal Saline] 1,000 ml IV ASDIRECTED - Assessment/Plan Last 24 Hours: My Active Orders 10/14/20 19:13 Blood Culture x2 Reflex Set [OM.PC] Stat 10/14/20 19:30 CULTURE BLOOD [BC] Stat 10/14/20 19:39 CULTURE BLOOD [BC] Stat 10/14/20 19:47 Ang Chest [CT] Stat 10/14/20 20:00 Sodium Chloride 0.9% [Normal Saline] 1,000 ml IV ASDIRECTED
[2020-10-14] MEDS ORDERED: Sodium Chloride 0.9% 1,000 ML IV SCH (20:00)
[2020-10-14] MEDS ORDERED: Acetaminophen 325 MG Tab PO ONE (21:35)
[2020-10-14 21:51] LABS: CORONAVIRUS COVID-19 NAA NEGATIVE (NEGATIVE)
[2020-10-15] MEDS ORDERED: LORazepam 2 MG/ML SDV IVPUSH STA ×5 (01:43→13:05)
[2020-10-15] MEDS ORDERED: Morphine 2 MG/ML SYRINGE IVPUSH STA ×2 (05:12→06:34)
[2020-10-15] MEDS ORDERED: Albuterol/Ipratropium 3.0-0.5 MG/3 ML Neb Soln NEB STA ×2 (05:16→06:35)
[2020-10-15] MEDS ORDERED: Morphine 2 MG/ML SYRINGE ONE ×2 (05:18→08:00)
[2020-10-15] MEDS ORDERED: LORazepam 2 MG/ML SDV ONE ×3 (05:19→12:19)
[2020-10-15] MEDS: methylPREDNISolone Sodium Succinate 125 MG/2 ML SDV IVPUSH SCH ×3 (05:36→16:53)
[2020-10-15] MEDS ORDERED: DOXYCYCLINE IV SCH ×2 (07:00→09:00)
[2020-10-15] MEDS ORDERED: SODIUM CHLORIDE 0.9% IV SCH ×2 (07:00→09:00)
--- NOTE | 2020-10-15 07:46 | PCM.HP.2 ---
H&P History of Present Illness - General Date of Service: 10/15/20 Admit Problem/Dx: Admission Diagnosis/Problem Admission Diagnosis/Problem Asthma with acute exacerbation Source of Information: Family, Provider History Limitations: Reports: No Limitations - History of Present Illness Initial Comments - Free Text/Narative: 30 year old male with reportedly history of asthma presents with SOB at rest; states that he used the Albuterol INH up to 80 times relief. Does not appear that he has been seen by a pulmonary doctor, he denies PFTs. No history of intubation is voiced. The patient was seen by the [facility] provider at 0600 hour on the day of admission. This was to evaluate the SOB after called by the charge nurse. The patient was anxious, and removed his O2 mask frequently. RT gave Neb treatments as ordered. He responded to therapy, but later decompensated He was subsequently moved to the ICU for acute respiratory distress. He has acute hypercapnic respiratory failure. The patient was initially sent to the [facility] ED after he was seen by a PCP in his office. He had been receiving neb treatment in the ED without significant response. He tested positive presumptively for methamphetamines, Marijuana. Discussion with the patient's sibling revealed that he has a longstanding history of substance abuse. He declines therapy for any psychiatric difficulties and/or substance abuse in the past. The patient was urgently intubated by the [facility] after unsuccessful trial of BiPAP. Unfortunately he was unable to tolerate the mask. He required a s ignificant amount of Propofol, Precedex and later Ativan after intubation. Additionally Rocuronium was given at least twice d/t incomplete response presumed to the adrenergic surge d/t Methamphetamine withdrawal. The patient had signs of agitation presumed withdrawal of Methamphetamines. He was empirically started on steroids for acute exacerbation of COPD/asthma as well as Doxcycline for atypical pneumonia. Current labs did not support PNA, however the inciting trigger for the asthmatic event has yet to be determined. The patient has tested negative for SARS-COV-2, and Mycoplasma. He denied fever, chills, sore throat, change in appetite, sense of taste/smell. But did notice SOB, wheezing. He was sent to the ED after seen by his PCP Onset of Symptoms: Reports: Gradual Duration of Symptoms: Reports: Hour(s):, Getting Worse Location: Reports: Chest Quality: Reports: Same as Previous Episode Severity: Moderate Improves with: Reports: Medication Associated Symptoms: Reports: Shortness of Breath, Weakness - Related Data Allergies/Adverse Reactions: Allergies Allergy/AdvReac Type Severity Reaction Status Date / Time Penicillins Allergy Severe Airway Verified 10/14/20 18:43 Tightness ketchup Allergy Rash Verified 10/15/20 17:18 Home Medications: Home Meds Albuterol [Proventil HFA] 1 puff INH Q4H PRN #1 inhaler 10/04/19 [Rx] Fluticasone Propion/Salmeterol [Advair 250-50 Diskus] 1 inh INH BID 10/14/20 [History] Past Medical History HEENT History: Reports: None Cardiovascular History: Reports: None Respiratory History: Reports: Asthma, Bronchitis, Recurrent Gastrointestinal History: Reports: None Genitourinary History: Reports: None Musculoskeletal History: Reports: Fracture, Other (See Below) Other Musculoskeletal History: R Shoulder Neurological History: Reports: None Psychiatric History: Reports: Anxiety Endocrine/Metabolic History: Reports: Obesity/BMI 30+ Hematologic History: Reports: None Immunologic History: Reports: None Oncologic (Cancer) History: Reports: None Dermatologic History: Reports: Eczema - Infectious Disease History Infectious Disease History: Reports: Chicken Pox - Past Surgical History Musculoskeletal Surgical History: Reports: ORIF Social & Family History - Family History Family Medical History: No Pertinent Family History - Tobacco Use Tobacco Use Status *Q: Current Every Day Tobacco User Years of Tobacco use: 16 Packs/Tins Daily: 1.5 Used Tobacco, but Quit: No Month/Year Tobacco Last Used: 10/17 Second Hand Smoke Exposure: Yes - Caffeine Use Caffeine Use: Reports: Coffee Other Caffeine Use: last energy drink about 1 month ago Caffeine Use Comment: 1 cup a day - Alcohol Use Date of Last Drink: 10/01/20 Time of Last Drink: 20:00 - Recreational Drug Use Recreational Drug Use: Yes Drug Use in Last 12 Months: Yes Recreational Drug Type: Reports: Marijuana/Hashish, Methamphetamine Recreational Drug Use Frequency: Daily - Living Situation & Occupation Living situation: Reports: Single, Alone Occupation: Employed ([employer]) H&P Review of Systems - Review of Systems: Review Of Systems: Comprehensive ROS is negative, except as noted in HPI. Exam - Exam Exam: See Below - Vital Signs Vital Signs: Last Vital Signs Temp 36.7 C 10/15/20 02:13 Pulse 127 H 10/15/20 05:44 Resp 28 H 10/15/20 05:44 BP 99/36 L 10/15/20 02:00 Pulse Ox 96 10/15/20 06:45 Weight: 95.481 kg - Exam Quality Assessment: Supplemental Oxygen, DVT Prophylaxis General: Alert, Oriented, Mild Distress HEENT: EACs Clear, EOMI, Hearing Intact, Mucosa Moist & [place], Normal Nasal Septum, Pupils Equal, Pupils Reactive Neck: Trachea Midline Lungs: Normal Respiratory Effort, Decreased Breath Sounds, Wheezing Cardiovascular: Regular Rate, Regular Rhythm GI/Abdominal Exam: Normal Bowel Sounds, Soft, Non-Tender, No Distention (Male) Exam: Deferred Rectal (Males) Exam: Deferred Back Exam: Normal Inspection Extremities: Normal Inspection, Non-Tender, No Pedal Edema, Slow Capillary Refill Peripheral Pulses: 2+: Radial (L), Radial (R), Femoral (L), Femoral (R) Skin: Warm Neurological: Cranial Nerves Intact, Normal Speech Neuro Extensive - Mental Status: Alert Neuro Extensive - Motor, Sensory, Reflexes: CN II-XII Intact Psychiatric: Anxious, Agitated - Patient Data Lab Results Last 24 hrs: Laboratory Results - last 24 hr 10/14/20 10/14/20 10/14/20 Range/Units 18:39 18:39 18:39 WBC 9.30 H (4.23-9.07) K/mm3 RBC 5.51 (4.63-6.08) M/mm3 Hgb 16.4 (13.7-17.5) gm/dl Hct 50.1 (40.1-51.0) % MCV 90.9 (79.0-92.2) fl MCH 29.8 (25.7-32.2) pg MCHC 32.7 (32.2-35.5) g/dl RDW Std Deviation 41.5 (35.1-43.9) fL Plt Count 232 (163-337) K/mm3 MPV 10.4 (9.4-12.3) fl Neutrophils % (Manual) 73 H (40-60) % Band Neutrophils % 0 (0-10) % Lymphocytes % (Manual) 16 L (20-40) % Atypical Lymphs % 0 % Monocytes % (Manual) 6 (2-10) % Eosinophils % (Manual) 5 (0.8-7.0) % Basophils % (Manual) 0 L (0.2-1.2) Platelet Estimate Adequate RBC Morph Comment Normal D-Dimer, Quantitative 11.50 H (0.19-0.50) mg/L Puncture Site ABG pH (7.35-7.45) ABG pCO2 (35.0-45.0) mmHg ABG pO2 (80.0-100.0) mmHg ABG HCO3 (22.0-26.0) meq/L ABG O2 Saturation (96.0-97.0) % ABG Base Excess (-2-2.0) Micah Test A-a Gradient mmHg O2 Delivery Device Oxygen Flow Rate FiO2 (21.00-100.00) % Sodium 142 (136-145) mEq/L Potassium 3.5 (3.5-5.1) mEq/L Chloride 106 (98-107) mEq/L Carbon Dioxide 24 (21-32) mEq/L Anion Gap 15.5 H (5-15) BUN 12 (7-18) mg/dL Creatinine 1.2 (0.7-1.3) mg/dL Est Cr Clr Drug Dosing 97.00 mL/min Estimated GFR (MDRD) > 60 (>60) mL/min BUN/Creatinine Ratio 10.0 L (14-18) Glucose 103 (74-106) mg/dL Lactic Acid (0.4-2.0) mmol/L Calcium 9.0 (8.5-10.1) mg/dL Magnesium 2.0 (1.8-2.4) mg/dl Total Bilirubin 0.3 (0.2-1.0) mg/dL AST 17 (15-37) U/L ALT 27 (16-63) U/L Alkaline Phosphatase 132 H (46-116) U/L Troponin I < 0.017 (0.00-0.056) ng/mL NT-Pro-B Natriuret Pep (0-125) pg/mL Total Protein 7.9 (6.4-8.2) g/dl Albumin 3.9 (3.4-5.0) g/dl Globulin 4.0 gm/dL Albumin/Globulin Ratio 1.0 (1-2) Urine Opiates Screen (WPPRDF=458) Ur Buprenorphine Scrn (CUTOFF=10) Ur Oxycodone Screen (QHI0AL=476) Urine Methadone Screen (XLF2QT=531) Ur Propoxyphene Screen (ZGLPAX=056) Ur Barbiturates Screen (XEBFON=873) Ur Tricyclics Screen (ZSQLEC=191) Ur Phencyclidine Scrn (CUTOFF=25) Ur Amphetamine Screen (WHOKLE=126) U Methamphetamines Scrn (GGEUCK=436) U Benzodiazepines Scrn (RESKTZ=873) U Cocaine Metab Screen (FUEITQ=486) U Marijuana (THC) Screen (CUTOFF=50) Influenza Type A RNA (NEGATIVE) Influenza Type B RNA (NEGATIVE) SARS-CoV-2 RNA (KAREN) (NEGATIVE) 10/14/20 10/14/20 10/14/20 Range/Units 18:39 19:15 19:28 WBC (4.23-9.07) K/mm3 RBC (4.63-6.08) M/mm3 Hgb (13.7-17.5) gm/dl Hct (40.1-51.0) % MCV (79.0-92.2) fl MCH (25.7-32.2) pg MCHC (32.2-35.5) g/dl RDW Std Deviation (35.1-43.9) fL Plt Count (163-337) K/mm3 MPV (9.4-12.3) fl Neutrophils % (Manual) (40-60) % Band Neutrophils % (0-10) % Lymphocytes % (Manual) (20-40) % Atypical Lymphs % % Monocytes % (Manual) (2-10) % Eosinophils % (Manual) (0.8-7.0) % Basophils % (Manual) (0.2-1.2) Platelet Estimate RBC Morph Comment D-Dimer, Quantitative (0.19-0.50) mg/L Puncture Site Lt radial ABG pH 7.31 L (7.35-7.45) ABG pCO2 41.4 (35.0-45.0) mmHg ABG pO2 81.0 (80.0-100.0) mmHg ABG HCO3 20.2 L (22.0-26.0) meq/L ABG O2 Saturation 94.6 L (96.0-97.0) % ABG Base Excess -5.4 L (-2-2.0) Micah Test Positive A-a Gradient 181 mmHg O2 Delivery Device Nasal cannula Oxygen Flow Rate 6.0 FiO2 44.00 (21.00-100.00) % Sodium (136-145) mEq/L Potassium (3.5-5.1) mEq/L Chloride (98-107) mEq/L Carbon Dioxide (21-32) mEq/L Anion Gap (5-15) BUN (7-18) mg/dL Creatinine (0.7-1.3) mg/dL Est Cr Clr Drug Dosing mL/min Estimated GFR (MDRD) (>60) mL/min BUN/Creatinine Ratio (14-18) Glucose (74-106) mg/dL Lactic Acid (0.4-2.0) mmol/L Calcium (8.5-10.1) mg/dL Magnesium (1.8-2.4) mg/dl Total Bilirubin (0.2-1.0) mg/dL AST (15-37) U/L ALT (16-63) U/L Alkaline Phosphatase (46-116) U/L Troponin I (0.00-0.056) ng/mL NT-Pro-B Natriuret Pep 93 (0-125) pg/mL Total Protein (6.4-8.2) g/dl Albumin (3.4-5.0) g/dl Globulin gm/dL Albumin/Globulin Ratio (1-2) Urine Opiates Screen Negative (MULHVO=891) Ur Buprenorphine Scrn Negative (CUTOFF=10) Ur Oxycodone Screen Negative (HVV6JQ=247) Urine Methadone Screen Negative (NXH6RE=820) Ur Propoxyphene Screen Negative (FLKSFO=434) Ur Barbiturates Screen Negative (HPYORP=469) Ur Tricyclics Screen Negative (HLJPAR=830) Ur Phencyclidine Scrn Negative (CUTOFF=25) Ur Amphetamine Screen Presumptive positive H (LZWRDJ=664) U Methamphetamines Scrn Presumptive positive H (UXCJWT=724) U Benzodiazepines Scrn Presumptive positive H (MCMWHO=715) U Cocaine Metab Screen Negative (AXTIKQ=831) U Marijuana (THC) Screen Presumptive positive H (CUTOFF=50) Influenza Type A RNA (NEGATIVE) Influenza Type B RNA (NEGATIVE) SARS-CoV-2 RNA (KAREN) (NEGATIVE) 10/14/20 10/14/20 Range/Units 19:30 21:08 WBC (4.23-9.07) K/mm3 RBC (4.63-6.08) M/mm3 Hgb (13.7-17.5) gm/dl Hct (40.1-51.0) % MCV (79.0-92.2) fl MCH (25.7-32.2) pg MCHC (32.2-35.5) g/dl RDW Std Deviation (35.1-43.9) fL Plt Count (163-337) K/mm3 MPV (9.4-12.3) fl Neutrophils % (Manual) (40-60) % Band Neutrophils % (0-10) % Lymphocytes % (Manual) (20-40) % Atypical Lymphs % % Monocytes % (Manual) (2-10) % Eosinophils % (Manual) (0.8-7.0) % Basophils % (Manual) (0.2-1.2) Platelet Estimate RBC Morph Comment D-Dimer, Quantitative (0.19-0.50) mg/L Puncture Site ABG pH (7.35-7.45) ABG pCO2 (35.0-45.0) mmHg ABG pO2 (80.0-100.0) mmHg ABG HCO3 (22.0-26.0) meq/L ABG O2 Saturation (96.0-97.0) % ABG Base Excess (-2-2.0) Micah Test A-a Gradient mmHg O2 Delivery Device Oxygen Flow Rate FiO2 (21.00-100.00) % Sodium (136-145) mEq/L Potassium (3.5-5.1) mEq/L Chloride (98-107) mEq/L Carbon Dioxide (21-32) mEq/L Anion Gap (5-15) BUN (7-18) mg/dL Creatinine (0.7-1.3) mg/dL Est Cr Clr Drug Dosing mL/min Estimated GFR (MDRD) (>60) mL/min BUN/Creatinine Ratio (14-18) Glucose (74-106) mg/dL Lactic Acid 1.0 (0.4-2.0) mmol/L Calcium (8.5-10.1) mg/dL Magnesium (1.8-2.4) mg/dl Total Bilirubin (0.2-1.0) mg/dL AST (15-37) U/L ALT (16-63) U/L Alkaline Phosphatase (46-116) U/L Troponin I (0.00-0.056) ng/mL NT-Pro-B Natriuret Pep (0-125) pg/mL Total Protein (6.4-8.2) g/dl Albumin (3.4-5.0) g/dl Globulin gm/dL Albumin/Globulin Ratio (1-2) Urine Opiates Screen (PROWFA=535) Ur Buprenorphine Scrn (CUTOFF=10) Ur Oxycodone Screen (JZH5YW=255) Urine Methadone Screen (VWY8ET=594) Ur Propoxyphene Screen (HFFTNC=471) Ur Barbiturates Screen (ZBITZM=850) Ur Tricyclics Screen (IXYJVU=117) Ur Phencyclidine Scrn (CUTOFF=25) Ur Amphetamine Screen (CEWQXR=438) U Methamphetamines Scrn (ZHEODD=283) U Benzodiazepines Scrn (JNSPWH=881) U Cocaine Metab Screen (UWHASV=171) U Marijuana (THC) Screen (CUTOFF=50) Influenza Type A RNA Negative (NEGATIVE) Influenza Type B RNA Negative (NEGATIVE) SARS-CoV-2 RNA (KAREN) Negative (NEGATIVE) Result Diagrams: 10/16/20 05:25 10/16/20 05:25 Sepsis Event Note - Evaluation Sepsis Screening Result: No Definite Risk - Focused Exam Vital Signs: Vital Signs Temp Pulse Pulse Resp BP BP Pulse Ox 10/15/20 06:45 10/15/20 05:44 127 H 28 H 95 10/15/20 05:26 10/15/20 02:30 122 H 96 10/15/20 02:13 36.7 C 125 H 29 H 96 10/15/20 02:07 125 H 94 L 10/15/20 02:00 32 H 99/36 L 10/15/20 00:00 106 H 26 H 134/84 94 L 10/14/20 21:48 90 L 10/14/20 21:45 116 H 20 135/90 87 L 10/14/20 21:10 97 10/14/20 20:30 124 H 20 146/91 H 93 L 10/14/20 20:00 128 H 24 H 123/90 93 L 10/14/20 19:50 128 H 24 H 145/92 H 92 L Pulse Ox 10/15/20 06:45 96 10/15/20 05:44 10/15/20 05:26 95 10/15/20 02:30 02/19/21 02:13 10/15/20 02:07 10/15/20 02:00 10/15/20 00:00 10/14/20 21:48 10/14/20 21:45 10/14/20 21:10 10/14/20 20:30 10/14/20 20:00 10/14/20 19:50 Problem List Initiated/Reviewed/Updated: Yes Orders Last 24hrs: Active Orders 24 hr Category Date Time Status Patient Status [ADT] Routine ADT 10/15/20 07:39 Active Oxygen Therapy [RC] ASDIRECTED Care 10/14/20 18:53 Active RT Aerosol Therapy [RC] ASDIRECTED Care 10/15/20 05:16 Active RT Aerosol Therapy [RC] ASDIRECTED Care 10/15/20 06:35 Active Up With Assistance [RC] BID Care 10/15/20 05:04 Active Regular Diet [DIET] Diet 10/15/20 Breakfast Active Ang Chest [CT] Stat Exams 10/14/20 19:47 Taken Chest 1V Frontal [CR] Stat Exams 10/14/20 18:54 Taken CULTURE BLOOD [BC] Stat Lab 10/14/20 19:30 Received CULTURE BLOOD [BC] Stat Lab 10/14/20 19:39 Received Doxycycline [Vibramycin] 250 mg Med 10/15/20 07:02 Pending Sodium Chloride 0.9% [Normal Saline] 100 ml IV Q12HR Sodium Chloride 0.9% [Saline Flush] Med 10/14/20 18:53 Active 10 ml FLUSH ASDIRECTED PRN methylPREDNISolone Sod Succ [Solu-MEDROL] Med 10/15/20 05:15 Active 125 mg IVPUSH Q6H Blood Culture x2 Reflex Set [OM.PC] Stat Oth 10/14/20 19:13 Ordered Peripheral IV Insertion Adult [OM.PC] Stat Oth 10/14/20 18:53 Ordered Code Status [Resuscitation Status] Routine Resus Stat 10/15/20 05:04 Ordered Medication Orders Doxycycline Hyclate 250 mg/ (Sodium Chloride) 100 mls @ 100 mls/hr IV Q12HR YANI Methylprednisolone Sodium Succinate (Solu-Medrol) 125 mg IVPUSH Q6H YANI Last Admin: 10/15/20 05:36 Dose: 125 mg Documented by: BRADJUL Sodium Chloride (Saline Flush) 10 ml FLUSH ASDIRECTED PRN PRN Reason: Keep Vein Open Last Admin: 10/14/20 19:00 Dose: 10 ml Documented by: NACHO Assessment/Plan Comment:: 30 year old male with acute hypoxemic respiratory distress, presumptively civered for atypical pneumonia with an ATB. the patient tested positive for marijuana and methamphetamine. Stated that the marijuana had to have been lace d, he denied active use of methamphetamine. Impression: Acute hypoxemic respiratory distress-subsequent failure, S/P intubation after failed BiPAP Methamphetamine positive, query inhalation eg "Gerson" cf IDU Hypertensive Methamphetamine withdrawal Chronic Obesity Polysubstance abuse Asthma Plan: HTN meds: scheduled/prn hydralazine; Vasotec; Lopressor Doxycycline 100 mg Q12 H Nebs: Duonebs/Albuterol, scheduled/prn DVT prophylaxis, Lovernox 40 mg Q 12 H NPO except meds PCXR scheduled or prn pending clinical course MV, adjust VT/PEEP/FiO2 per response, keep O2 sat>92% AM labs re: sepsis/COVID-19 COVID-19 precaution s/p intubation
--- NOTE | 2020-10-15 07:48 | CR ---
Chest: Portable view of the chest was obtained. Comparison: Chest x-ray compared to subsequent chest CT performed later on the same day. Heart size and mediastinum are normal. Lungs are clear with no acute parenchymal change. Plate and screws are noted within the right clavicle. No acute osseous finding is appreciated. Impression: 1. Nothing acute is seen on portable chest x-ray. Diagnostic code #2
[2020-10-15] MEDS ORDERED: Morphine 2 MG/ML SYRINGE IVPUSH ONE (08:04)
--- NOTE | 2020-10-15 08:08 | CT ---
CT chest Technique: Multiple axial sections through the chest were obtained. Intravenous contrast was utilized. Study has been performed as a pulmonary angiogram protocol. Comparison: Prior chest x-ray performed earlier on the same day. Findings: Pulmonary arteries are well opacified. No filling defects are seen to indicate pulmonary embolism. Thoracic aorta shows no aneurysm. Mediastinum and hilar regions show no adenopathy. No pericardial thickening is appreciated. Visualized upper abdominal structures show nothing acute. Lungs appear clear. No acute parenchymal change is appreciated. No pulmonary nodule or mass is seen. Minimal scarring is noted within the left lung base. Bone window settings were reviewed which show no acute osseous finding. Impression: 1. No findings of pulmonary embolism. 2. Nothing acute is identified on CT study of the chest. Diagnostic code #1 I agree with preliminary report from [facility], finalized on 10/14/20, 9:53 PM SPUDDER
[2020-10-15] MEDS ORDERED: LORazepam 2 MG/ML SDV IVPUSH PRN ×2 (08:35→08:56)
[2020-10-15] MEDS: Doxycycline 100 MG in Sodium Chloride 0.9% 100 ML IV SCH ×2 (08:37→20:01)
[2020-10-15] MEDS ORDERED: Morphine 2 MG/ML SYRINGE IVPUSH PRN (08:56)
[2020-10-15] MEDS ORDERED: hydrALAZINE 20 MG/ML SDV IVPUSH PRN ×3 (09:06→17:59)
[2020-10-15] MEDS ORDERED: Acetaminophen 325 MG Tab PO PRN (09:08)
[2020-10-15] MEDS ORDERED: Enalaprilat 1.25 MG/ML SDV IVPUSH PRN ×2 (09:09→12:14)
[2020-10-15] MEDS ORDERED: Haloperidol Lactate 5 MG/ML SDV ONE ×2 (09:40→09:58)
[2020-10-15] MEDS ORDERED: Haloperidol Lactate 5 MG/ML SDV IVPUSH ONE ×2 (09:44→09:46)
[2020-10-15] MEDS ORDERED: propofoL 100 ML ONE (10:03)
[2020-10-15] MEDS: propofoL 100 ML IV SCH ×4 (10:32→19:50)
[2020-10-15] MEDS ORDERED: hydrALAZINE 20 MG/ML SDV ONE (10:47)
[2020-10-15] MEDS ORDERED: hydrALAZINE 20 MG/ML SDV IVPUSH ONE (10:49)
[2020-10-15] MEDS ORDERED: Dexmedetomidine 200 MCG/2 ML SDV IV SCH (11:00)
--- NOTE | 2020-10-15 11:05 | PCM.SN.2 ---
- Free Text/Narrative Note: 1005 called to ICU for emergency intubation. Pre O2 X 100%. Bag mask pt very agitated 50mg zemuron 200 mg propofol no response from patient. Additional 10mg versed and 50mg zemuron. No response. Succinylcholine drawn up and given after a 10min wait. Patient relaxed. Placed an 8.0 OETT 24cm at teeth-lip. bilat eral breath sounds equal and color change noted. Vital signs stable. Report to RN. Out of room at 1040.
[2020-10-15] MEDS: Albuterol 0.083% 2.5 MG/3 ML Neb Soln NEB SCH ×4 (11:27→21:10)
--- NOTE | 2020-10-15 11:40 | CR ---
Chest: Portable view of the chest was obtained. Comparison: Prior chest x-ray 10/14/20. Heart size and mediastinum are normal. Endotracheal tube is seen lying between the clavicle and isabel in satisfactory position. Nasogastric tube courses through the mediastinum and off the inferior edge of the film in the region of the stomach. Lungs are clear with no acute parenchymal change. Prior surgery is noted at the acromioclavicular joint on the right side. Impression: 1. Satisfactory appearance of endotracheal tube and nasogastric tube. 2. Nothing acute is otherwise seen on portable chest x-ray. Diagnostic code #3
[2020-10-15] MEDS ORDERED: LORazepam 2 MG/ML SDV IVPUSH ONE (12:12)
[2020-10-15] MEDS ORDERED: Dextrose 5%-0.45% NaCl 1,000 ML IV SCH (12:15)
[2020-10-15] MEDS: Metoprolol Tartrate 5 MG/5 ML SDV IVPUSH PRN ×2 (12:27→16:25)
[2020-10-15] MEDS ORDERED: Succinylcholine 200 MG/10 ML MDV ONE (13:00)
[2020-10-15] MEDS ORDERED: Midazolam 1 MG/ML 5 ML SDV ONE (13:00)
[2020-10-15] MEDS ORDERED: Propofol 200 MG/20 ML SDV ONE ×2 (13:00)
[2020-10-15] MEDS ORDERED: hydrALAZINE 20 MG/ML SDV IVPUSH SCH (13:00)
[2020-10-15] MEDS ORDERED: Rocuronium 50 MG/5 ML Vial ONE ×2 (13:00)
[2020-10-15] MEDS ORDERED: Calcium Chloride 10% 1 GM/10 ML Syringe IVPUSH PRN (13:13)
[2020-10-15] MEDS ORDERED: Insulin Regular, Human 100 Units/ML 3 ML Vial IV ONE (13:17)
[2020-10-15] MEDS: LORazepam 40 MG in Dextrose 5% in Water 20 ML IV SCH ×2 (13:32)
[2020-10-15] MEDS ORDERED: 50% Dextrose in Water 50 ML Syringe IVPUSH SCH (14:00)
[2020-10-15] MEDS: Enoxaparin 40 MG/0.4 ML Syringe SUBCUT SCH (14:00)
[2020-10-15] MEDS: Sodium Polystyrene Sulfonate 15 GM/60 ML Susp 60 ML Bot PO SCH ×2 (14:02→21:50)
[2020-10-15] MEDS: hydrALAZINE 20 MG/ML SDV IVPUSH SCH ×2 (14:45→15:54)
[2020-10-15] MEDS: Albuterol/Ipratropium 3.0-0.5 MG/3 ML Neb Soln NEB SCH ×2 (15:21→21:12)
[2020-10-15] MEDS ORDERED: Famotidine 20 MG/2 ML SDV IVPUSH ONE (20:49)
[2020-10-15] MEDS ORDERED: Lactated Ringers 1,000 ML ONE (20:51)
[2020-10-15] MEDS ORDERED: Lactated Ringers 1,000 ML IV SCH (21:00)
[2020-10-15] MEDS ORDERED: Lactated Ringers 250 ML IV ONE (21:45)
[2020-10-16] MEDS: methylPREDNISolone Sodium Succinate 125 MG/2 ML SDV IVPUSH SCH ×3 (00:35→11:07)
[2020-10-16] MEDS: Enoxaparin 40 MG/0.4 ML Syringe SUBCUT SCH (02:13)
[2020-10-16] MEDS: Albuterol/Ipratropium 3.0-0.5 MG/3 ML Neb Soln NEB SCH ×5 (02:22→19:51)
[2020-10-16] MEDS: Albuterol 0.083% 2.5 MG/3 ML Neb Soln NEB SCH ×2 (02:22→05:34)
[2020-10-16] MEDS: Lactated Ringers 1,000 ML IV SCH ×3 (03:36→18:55)
--- NOTE | 2020-10-16 08:04 | CR ---
Chest: Portable view of the chest was obtained. Comparison: Prior chest x-ray of 10/15/20. Heart size and mediastinum are normal. Lungs are clear with no acute parenchymal change. Previous surgery noted at the right acromioclavicular joint which is stable. Endotracheal tube is seen which lies at the level of the clavicles. Nasogastric tube courses through the mediastinum with tip being within the stomach. Impression: 1. Endotracheal tube and nasogastric tube as noted above. 2. No other acute abnormality is appreciated. Diagnostic code #2
[2020-10-16] MEDS: Doxycycline 100 MG in Sodium Chloride 0.9% 100 ML IV SCH (08:31)
[2020-10-16] MEDS: propofoL 100 ML IV SCH ×3 (08:41→19:27)
[2020-10-16] MEDS: Budesonide 0.5 MG/2 ML Neb Susp NEB SCH ×2 (08:45→20:09)
[2020-10-16] MEDS ORDERED: Budesonide 0.5 MG/2 ML Neb Susp NEB SCH (09:00)
[2020-10-16] MEDS: LORazepam 40 MG in Dextrose 5% in Water 20 ML IV SCH ×2 (09:08)
[2020-10-16] MEDS: Azithromycin 500 MG in Sodium Chloride 0.9% 250 ML IV SCH (11:22)
[2020-10-16] MEDS ORDERED: Enoxaparin 60 MG/0.6 ML Syringe SUBCUT ONE (11:45)
[2020-10-16] MEDS ORDERED: Dexamethasone 4 MG/ML SDV IVPUSH SCH (12:00)
[2020-10-16] MEDS: cefTRIAXone 2 GM in Sodium Chloride 0.9% 100 ML IV SCH (12:36)
[2020-10-16] MEDS: Metoprolol Tartrate 5 MG/5 ML SDV IVPUSH PRN (12:59)
--- NOTE | 2020-10-16 13:47 | PCM.PN ---
- General Info Date of Service: 10/16/20 Subjective Update: Patient remains intubated, requiring adjustment of FIO2, VT, PEEP to improve oxygenation. CXR remains non infectious. Pulmonary secretions have changed to greenish. ATB changed to Zith/Rocephin with Dex for presumtive coverage of COVID-19. The second COVID test was negative. Doxycycline was DCd, Solumedrol was stopped after 24 hours. Nebs have been resumed to Q 6H scheduled and Q 4 H prn. LA wne up with appropriate change in IVF, will monitor for sepsis following guidelines. Functional Status: Reports: Other (NPO) - Review of Systems General: Reports: No Symptoms HEENT: Reports: No Symptoms Pulmonary: Reports: No Symptoms Cardiovascular: Reports: No Symptoms Gastrointestinal: Reports: No Symptoms Genitourinary: Reports: No Symptoms Musculoskeletal: Reports: No Symptoms Skin: Reports: No Symptoms Neurological: Reports: No Symptoms Psychiatric: Reports: No Symptoms - Patient Data Vitals - Most Recent: Last Vital Signs Temp 36.4 C 10/16/20 13:00 Pulse 110 H 10/16/20 12:59 Resp 25 H 10/16/20 13:00 BP 90/57 L 10/16/20 13:00 Pulse Ox 91 L 10/16/20 13:00 Weight - Most Recent: 96.207 kg I&O - Last 24 Hours: Intake & Output 10/15/20 10/16/20 10/16/20 22:59 06:59 14:59 Intake Total 586 1625 Output Total 570 830 500 Balance 16 795 -500 Lab Results Last 24 Hours: Laboratory Results - last 24 hr 10/15/20 10/15/20 10/15/20 Range/Units 12:02 12:50 14:23 WBC (4.23-9.07) K/mm3 RBC (4.63-6.08) M/mm3 Hgb (13.7-17.5) gm/dl Hct (40.1-51.0) % MCV (79.0-92.2) fl MCH (25.7-32.2) pg MCHC (32.2-35.5) g/dl RDW Std Deviation (35.1-43.9) fL Plt Count (163-337) K/mm3 MPV (9.4-12.3) fl Neut % (Auto) (34.0-67.9) % Lymph % (Auto) (21.8-53.1) % Douglas % (Auto) (5.3-12.2) % Eos % (Auto) (0.8-7.0) Baso % (Auto) (0.1-1.2) % Neut # (Auto) (1.78-5.38) K/mm3 Lymph # (Auto) (1.32-3.57) K/mm3 Douglas # (Auto) (0.30-0.82) K/mm3 Eos # (Auto) (0.04-0.54) K/mm3 Baso # (Auto) (0.01-0.08) K/mm3 Manual Slide Review D-Dimer, Quantitative (0.19-0.50) mg/L Puncture Site Rt radial ABG pH 7.21 L (7.35-7.45) ABG pCO2 68.4 H (35.0-45.0) mmHg ABG pO2 116.0 H (80.0-100.0) mmHg ABG HCO3 26.5 H (22.0-26.0) meq/L ABG O2 Saturation 97.7 H (96.0-97.0) % ABG Base Excess -3.3 L (-2-2.0) Micah Test Positive A-a Gradient 155 mmHg O2 Delivery Device Ventilator Oxygen Flow Rate FiO2 50.00 (21.00-100.00) % Tidal Volume 600.0 cc PEEP 5.0 cmH20 Sodium 139 (136-145) mEq/L Potassium 6.2 H* (3.5-5.1) mEq/L Chloride 104 (98-107) mEq/L Carbon Dioxide 23 (21-32) mEq/L Anion Gap 18.2 H (5-15) BUN 13 (7-18) mg/dL Creatinine 1.1 (0.7-1.3) mg/dL Est Cr Clr Drug Dosing 105.82 mL/min Estimated GFR (MDRD) > 60 (>60) mL/min BUN/Creatinine Ratio 11.8 L (14-18) Glucose 194 H (74-106) mg/dL Calcium 8.6 (8.5-10.1) mg/dL Magnesium (1.8-2.4) mg/dl Total Bilirubin (0.2-1.0) mg/dL AST (15-37) U/L ALT (16-63) U/L Alkaline Phosphatase (46-116) U/L C-Reactive Protein (<1.0) mg/dL Total Protein (6.4-8.2) g/dl Albumin (3.4-5.0) g/dl Globulin gm/dL Albumin/Globulin Ratio (1-2) Procalcitonin 0.06 ng/mL SARS-CoV-2 RNA (KAREN) (NEGATIVE) 10/15/20 10/15/20 10/16/20 Range/Units 16:38 18:30 05:25 WBC (4.23-9.07) K/mm3 RBC (4.63-6.08) M/mm3 Hgb (13.7-17.5) gm/dl Hct (40.1-51.0) % MCV (79.0-92.2) fl MCH (25.7-32.2) pg MCHC (32.2-35.5) g/dl RDW Std Deviation (35.1-43.9) fL Plt Count (163-337) K/mm3 MPV (9.4-12.3) fl Neut % (Auto) (34.0-67.9) % Lymph % (Auto) (21.8-53.1) % Douglas % (Auto) (5.3-12.2) % Eos % (Auto) (0.8-7.0) Baso % (Auto) (0.1-1.2) % Neut # (Auto) (1.78-5.38) K/mm3 Lymph # (Auto) (1.32-3.57) K/mm3 Douglas # (Auto) (0.30-0.82) K/mm3 Eos # (Auto) (0.04-0.54) K/mm3 Baso # (Auto) (0.01-0.08) K/mm3 Manual Slide Review D-Dimer, Quantitative (0.19-0.50) mg/L Puncture Site Lt radial ABG pH 7.25 L (7.35-7.45) ABG pCO2 64.1 H (35.0-45.0) mmHg ABG pO2 50.0 L (80.0-100.0) mmHg ABG HCO3 27.1 H (22.0-26.0) meq/L ABG O2 Saturation 84.3 L (96.0-97.0) % ABG Base Excess -1.4 (-2-2.0) Micah Test Positive A-a Gradient 155 mmHg O2 Delivery Device Ventilator Oxygen Flow Rate FiO2 40.00 (21.00-100.00) % Tidal Volume 600.0 cc PEEP 5.0 cmH20 Sodium 142 (136-145) mEq/L Potassium 4.3 D (3.5-5.1) mEq/L Chloride 105 (98-107) mEq/L Carbon Dioxide 26 (21-32) mEq/L Anion Gap 15.3 H (5-15) BUN 17 (7-18) mg/dL Creatinine 1.3 (0.7-1.3) mg/dL Est Cr Clr Drug Dosing 89.54 mL/min Estimated GFR (MDRD) > 60 (>60) mL/min BUN/Creatinine Ratio 13.1 L (14-18) Glucose 93 (74-106) mg/dL Calcium 10.1 D (8.5-10.1) mg/dL Magnesium 2.5 H (1.8-2.4) mg/dl Total Bilirubin (0.2-1.0) mg/dL AST (15-37) U/L ALT (16-63) U/L Alkaline Phosphatase (46-116) U/L C-Reactive Protein (<1.0) mg/dL Total Protein (6.4-8.2) g/dl Albumin (3.4-5.0) g/dl Globulin gm/dL Albumin/Globulin Ratio (1-2) Procalcitonin ng/mL SARS-CoV-2 RNA (KAREN) (NEGATIVE) 10/16/20 10/16/20 10/16/20 Range/Units 05:25 05:25 05:25 WBC 15.53 H (4.23-9.07) K/mm3 RBC 4.76 (4.63-6.08) M/mm3 Hgb 14.2 D (13.7-17.5) gm/dl Hct 44.7 (40.1-51.0) % MCV 93.9 H D (79.0-92.2) fl MCH 29.8 (25.7-32.2) pg MCHC 31.8 L (32.2-35.5) g/dl RDW Std Deviation 41.2 (35.1-43.9) fL Plt Count 216 (163-337) K/mm3 MPV 11.0 (9.4-12.3) fl Neut % (Auto) 93.4 H (34.0-67.9) % Lymph % (Auto) 3.7 L (21.8-53.1) % Douglas % (Auto) 2.6 L (5.3-12.2) % Eos % (Auto) 0 L (0.8-7.0) Baso % (Auto) 0.0 L (0.1-1.2) % Neut # (Auto) 14.51 H (1.78-5.38) K/mm3 Lymph # (Auto) 0.57 L (1.32-3.57) K/mm3 Douglas # (Auto) 0.40 (0.30-0.82) K/mm3 Eos # (Auto) 0.00 L (0.04-0.54) K/mm3 Baso # (Auto) 0.00 L (0.01-0.08) K/mm3 Manual Slide Review Abnormal smear D-Dimer, Quantitative 9.57 H (0.19-0.50) mg/L Puncture Site ABG pH (7.35-7.45) ABG pCO2 (35.0-45.0) mmHg ABG pO2 (80.0-100.0) mmHg ABG HCO3 (22.0-26.0) meq/L ABG O2 Saturation (96.0-97.0) % ABG Base Excess (-2-2.0) Micah Test A-a Gradient mmHg O2 Delivery Device Oxygen Flow Rate FiO2 (21.00-100.00) % Tidal Volume cc PEEP cmH20 Sodium 139 (136-145) mEq/L Potassium 4.7 (3.5-5.1) mEq/L Chloride 104 (98-107) mEq/L Carbon Dioxide 24 (21-32) mEq/L Anion Gap 15.7 H (5-15) BUN 31 H (7-18) mg/dL Creatinine 1.9 H (0.7-1.3) mg/dL Est Cr Clr Drug Dosing 61.26 mL/min Estimated GFR (MDRD) 41 (>60) mL/min BUN/Creatinine Ratio 16.3 (14-18) Glucose 204 H (74-106) mg/dL Calcium 9.1 (8.5-10.1) mg/dL Magnesium (1.8-2.4) mg/dl Total Bilirubin 0.3 (0.2-1.0) mg/dL AST 14 L (15-37) U/L ALT 21 (16-63) U/L Alkaline Phosphatase 94 (46-116) U/L C-Reactive Protein 3.6 H* (<1.0) mg/dL Total Protein 6.8 (6.4-8.2) g/dl Albumin 3.2 L (3.4-5.0) g/dl Globulin 3.6 gm/dL Albumin/Globulin Ratio 0.9 L (1-2) Procalcitonin ng/mL SARS-CoV-2 RNA (KAREN) (NEGATIVE) 10/16/20 10/16/20 10/16/20 Range/Units 08:00 10:04 11:05 WBC (4.23-9.07) K/mm3 RBC (4.63-6.08) M/mm3 Hgb (13.7-17.5) gm/dl Hct (40.1-51.0) % MCV (79.0-92.2) fl MCH (25.7-32.2) pg MCHC (32.2-35.5) g/dl RDW Std Deviation (35.1-43.9) fL Plt Count (163-337) K/mm3 MPV (9.4-12.3) fl Neut % (Auto) (34.0-67.9) % Lymph % (Auto) (21.8-53.1) % Douglas % (Auto) (5.3-12.2) % Eos % (Auto) (0.8-7.0) Baso % (Auto) (0.1-1.2) % Neut # (Auto) (1.78-5.38) K/mm3 Lymph # (Auto) (1.32-3.57) K/mm3 Douglas # (Auto) (0.30-0.82) K/mm3 Eos # (Auto) (0.04-0.54) K/mm3 Baso # (Auto) (0.01-0.08) K/mm3 Manual Slide Review D-Dimer, Quantitative (0.19-0.50) mg/L Puncture Site Lt radial Lt radial ABG pH 7.27 L 7.28 L (7.35-7.45) ABG pCO2 54.1 H 55.3 H (35.0-45.0) mmHg ABG pO2 76.0 L 84.0 (80.0-100.0) mmHg ABG HCO3 23.9 25.0 (22.0-26.0) meq/L ABG O2 Saturation 93.5 L 95.7 L (96.0-97.0) % ABG Base Excess -3.4 L -2.3 L (-2-2.0) Micah Test Positive Positive A-a Gradient 284 274 mmHg O2 Delivery Device Ventilator Ventilator Oxygen Flow Rate 0.0 0.0 FiO2 60.00 60.00 (21.00-100.00) % Tidal Volume 600.0 600.0 cc PEEP 5.0 10.0 cmH20 Sodium (136-145) mEq/L Potassium (3.5-5.1) mEq/L Chloride (98-107) mEq/L Carbon Dioxide (21-32) mEq/L Anion Gap (5-15) BUN (7-18) mg/dL Creatinine (0.7-1.3) mg/dL Est Cr Clr Drug Dosing mL/min Estimated GFR (MDRD) (>60) mL/min BUN/Creatinine Ratio (14-18) Glucose (74-106) mg/dL Calcium (8.5-10.1) mg/dL Magnesium (1.8-2.4) mg/dl Total Bilirubin (0.2-1.0) mg/dL AST (15-37) U/L ALT (16-63) U/L Alkaline Phosphatase (46-116) U/L C-Reactive Protein (<1.0) mg/dL Total Protein (6.4-8.2) g/dl Albumin (3.4-5.0) g/dl Globulin gm/dL Albumin/Globulin Ratio (1-2) Procalcitonin ng/mL SARS-CoV-2 RNA (KAREN) Negative (NEGATIVE) 10/16/20 Range/Units 12:10 WBC (4.23-9.07) K/mm3 RBC (4.63-6.08) M/mm3 Hgb (13.7-17.5) gm/dl Hct (40.1-51.0) % MCV (79.0-92.2) fl MCH (25.7-32.2) pg MCHC (32.2-35.5) g/dl RDW Std Deviation (35.1-43.9) fL Plt Count (163-337) K/mm3 MPV (9.4-12.3) fl Neut % (Auto) (34.0-67.9) % Lymph % (Auto) (21.8-53.1) % Douglas % (Auto) (5.3-12.2) % Eos % (Auto) (0.8-7.0) Baso % (Auto) (0.1-1.2) % Neut # (Auto) (1.78-5.38) K/mm3 Lymph # (Auto) (1.32-3.57) K/mm3 Douglas # (Auto) (0.30-0.82) K/mm3 Eos # (Auto) (0.04-0.54) K/mm3 Baso # (Auto) (0.01-0.08) K/mm3 Manual Slide Review D-Dimer, Quantitative (0.19-0.50) mg/L Puncture Site Lt radial ABG pH 7.23 L (7.35-7.45) ABG pCO2 59.8 H (35.0-45.0) mmHg ABG pO2 134.0 H (80.0-100.0) mmHg ABG HCO3 24.4 (22.0-26.0) meq/L ABG O2 Saturation 98.8 H (96.0-97.0) % ABG Base Excess -3.9 L (-2-2.0) Micah Test Positive A-a Gradient 361 mmHg O2 Delivery Device Ventilator Oxygen Flow Rate 0.0 FiO2 80.00 (21.00-100.00) % Tidal Volume 550.0 cc PEEP 14.0 cmH20 Sodium (136-145) mEq/L Potassium (3.5-5.1) mEq/L Chloride (98-107) mEq/L Carbon Dioxide (21-32) mEq/L Anion Gap (5-15) BUN (7-18) mg/dL Creatinine (0.7-1.3) mg/dL Est Cr Clr Drug Dosing mL/min Estimated GFR (MDRD) (>60) mL/min BUN/Creatinine Ratio (14-18) Glucose (74-106) mg/dL Calcium (8.5-10.1) mg/dL Magnesium (1.8-2.4) mg/dl Total Bilirubin (0.2-1.0) mg/dL AST (15-37) U/L ALT (16-63) U/L Alkaline Phosphatase (46-116) U/L C-Reactive Protein (<1.0) mg/dL Total Protein (6.4-8.2) g/dl Albumin (3.4-5.0) g/dl Globulin gm/dL Albumin/Globulin Ratio (1-2) Procalcitonin ng/mL SARS-CoV-2 RNA (KAREN) (NEGATIVE) Eliazar Results Last 24 Hours: Microbiology 10/16/20 10:20 Gram Stain - Final Sputum - Induced 10/14/20 19:39 Aerobic Blood Culture - Preliminary Blood - Venous NO GROWTH AFTER 1 DAY Anaerobic Blood Culture - Preliminary NO GROWTH AFTER 1 DAY 10/14/20 19:30 Aerobic Blood Culture - Preliminary Blood - Venous - Lab Draw NO GROWTH AFTER 1 DAY Anaerobic Blood Culture - Preliminary NO GROWTH AFTER 1 DAY Med Orders - Current: Current Medications Acetaminophen (Tylenol) 650 mg PO Q6H PRN PRN Reason: Pain/Fever Albuterol (Proventil Neb Soln) 2.5 mg NEB Q4H PRN PRN Reason: Shortness of Breath Albuterol/Ipratropium (Duoneb 3.0-0.5 Mg/3 Ml) 3 ml NEB Q4H [facility] Last Admin: 10/16/20 12:04 Dose: 3 ml Documented by: Budesonide (Pulmicort) 1 mg NEB BID [facility] Last Admin: 10/16/20 08:45 Dose: 1 mg Documented by: Calcium Chloride (Calcium Chloride 10%) 1 gm IVPUSH Q4H PRN PRN Reason: K>6 Last Admin: 10/15/20 14:44 Dose: 1 gm Documented by: Dexamethasone (Decadron) 6 mg IVPUSH Q24H [facility] Dextrose/Water (Dextrose 50% In Water) 50 ml IVPUSH ASDIRECTED [facility] Enoxaparin Sodium (Lovenox) 100 mg SUBCUT BID YANI Famotidine (Pepcid) 20 mg IVPUSH BEDTIME YANI Haloperidol Lactate (Haldol) 2 mg IVPUSH Q4H PRN PRN Reason: Withdrawal Symptoms Hydralazine HCl (Apresoline) 10 mg IVPUSH Q8H PRN PRN Reason: Hypertension dexmedeTOMIDine in dextrose 5% (400 mcg/ Premix) 100 mls @ 0 mls/hr IV TITRATE YANI; Protocol Last Infusion: 10/16/20 13:46 Dose: 14.3 mls/hr Documented by: Propofol (Diprivan 100 Ml) 100 mls @ 2.864 mls/hr IV TITRATE [facility]; Protocol Last Titration: 10/16/20 13:47 Dose: 30 mcg/kg/min, 17.187 mls/hr Documented by: Lorazepam 40 mg/ Dextrose/ (Water) 40 mls @ 1 mls/hr IV TITRATE YANI; Protocol Last Admin: 10/16/20 09:08 Dose: 0.5 mg/hr, 0.5 mls/hr Documented by: Lactated Ringer's (Ringers, Lactated) 1,000 mls @ 75 mls/hr IV ASDIRECTED YANI Last Admin: 10/16/20 03:36 Dose: 75 mls/hr Documented by: Azithromycin 500 mg/ Sodium (Chloride) 250 mls @ 250 mls/hr IV Q24H [facility] Last Admin: 10/16/20 11:22 Dose: 250 mls/hr Documented by: Ceftriaxone Sodium 2 gm/ (Sodium Chloride) 100 mls @ 200 mls/hr IV Q24H [facility] Last Admin: 10/16/20 12:36 Dose: 200 mls/hr Documented by: Lorazepam (Ativan) 0 mg IVPUSH Q1H PRN; Protocol PRN Reason: Withdrawal Symptoms Last Admin: 10/15/20 08:53 Dose: 1 mg Documented by: Lorazepam (Ativan) 1 mg IVPUSH Q4H PRN PRN Reason: Anxiety Metoprolol Tartrate (Lopressor) 5 mg IVPUSH Q4H PRN PRN Reason: heart rate >110 Last Admin: 10/16/20 12:59 Dose: 5 mg Documented by: Sodium Chloride (Saline Flush) 10 ml FLUSH ASDIRECTED PRN PRN Reason: Keep Vein Open Last Admin: 10/14/20 19:00 Dose: 10 ml Documented by: Discontinued Medications Acetaminophen (Tylenol) 650 mg PO NOW ONE Stop: 10/14/20 21:36 Last Admin: 10/14/20 22:23 Dose: Not Given Documented by: Albuterol (Proventil Neb Soln) Confirm Administered Dose 2.5 mg .ROUTE .STK-MED ONE Stop: 10/14/20 18:51 Last Admin: 10/14/20 18:57 Dose: Not Given Documented by: Albuterol (Proventil Neb Soln) 2.5 mg NEB ONETIME ONE Stop: 10/14/20 18:53 Last Admin: 10/14/20 18:55 Dose: 2.5 mg Documented by: Albuterol (Proventil Neb Soln) 2.5 mg NEB Q4HRRT YANI Last Admin: 10/16/20 05:34 Dose: 2.5 mg Documented by: Albuterol/Ipratropium (Duoneb 3.0-0.5 Mg/3 Ml) 3 ml NEB ONETIME ONE Stop: 10/14/20 19:14 Last Admin: 10/14/20 19:23 Dose: 3 ml Documented by: Albuterol/Ipratropium (Duoneb 3.0-0.5 Mg/3 Ml) 3 ml NEB STAT STA Stop: 10/15/20 05:17 Last Admin: 10/15/20 05:26 Dose: 3 ml Documented by: Albuterol/Ipratropium (Duoneb 3.0-0.5 Mg/3 Ml) 3 ml NEB STAT STA Stop: 10/15/20 06:36 Last Admin: 10/15/20 06:44 Dose: 3 ml Documented by: Albuterol/Ipratropium (Duoneb 3.0-0.5 Mg/3 Ml) 3 ml NEB Q6HRRT YANI Last Admin: 10/16/20 08:44 Dose: 3 ml Documented by: Budesonide (Pulmicort) 1 mg NEB BIDRT [facility] Dexamethasone (Decadron) 6 mg IVPUSH Q24H [facility] Dexmedetomidine HCl (Precedex) 0 mcg IV CONTINUOUS YANI; Protocol Enalaprilat (Vasotec Iv) 0.625 mg IVPUSH Q6H PRN PRN Reason: Hypertension Last Admin: 10/15/20 11:22 Dose: 0.625 mg Documented by: Enalaprilat (Vasotec Iv) 1.25 mg IVPUSH Q6H PRN PRN Reason: Hypertension Enoxaparin Sodium (Lovenox) 40 mg SUBCUT Q12H [facility] Last Admin: 10/16/20 02:13 Dose: 40 mg Documented by: Enoxaparin Sodium (Lovenox) 60 mg SUBCUT ONETIME ONE Stop: 10/16/20 11:46 Last Admin: 10/16/20 11:46 Dose: 60 mg Documented by: Famotidine (Pepcid) 20 mg IVPUSH ONETIME ONE Stop: 10/15/20 20:50 Last Admin: 10/15/20 21:04 Dose: 20 mg Documented by: Haloperidol Lactate (Haldol) Confirm Administered Dose 5 mg .ROUTE .STK-MED ONE Stop: 10/15/20 09:41 Last Admin: 10/15/20 09:52 Dose: Not Given Documented by: Haloperidol Lactate (Haldol) 1 mg IVPUSH ONETIME ONE Stop: 10/15/20 09:45 Last Admin: 10/15/20 12:09 Dose: 1 mg Documented by: Haloperidol Lactate (Haldol) 1 mg IVPUSH ONETIME ONE Stop: 10/15/20 09:47 Last Admin: 10/15/20 09:46 Dose: 1 mg Documented by: Haloperidol Lactate (Haldol) Confirm Administered Dose 5 mg .ROUTE .STK-MED ONE Stop: 10/15/20 09:59 Last Admin: 10/15/20 12:17 Dose: Not Given Documented by: Hydralazine HCl (Apresoline) 10 mg IVPUSH Q2H PRN PRN Reason: Hypertension Last Admin: 10/15/20 09:28 Dose: 10 mg Documented by: Hydralazine HCl (Apresoline) Confirm Administered Dose 20 mg .ROUTE .STK-MED ONE Stop: 10/15/20 10:48 Last Admin: 10/15/20 11:50 Dose: Not Given Documented by: Hydralazine HCl (Apresoline) 20 mg IVPUSH Q8H [facility] Last Admin: 10/15/20 13:52 Dose: Not Given Documented by: Hydralazine HCl (Apresoline) 10 mg IVPUSH ONETIME ONE Stop: 10/15/20 10:50 Last Admin: 10/15/20 10:49 Dose: 10 mg Documented by: Hydralazine HCl (Apresoline) 20 mg IVPUSH Q8H [facility] Last Admin: 10/15/20 15:54 Dose: Not Given Documented by: Hydralazine HCl (Apresoline) 20 mg IVPUSH Q8H PRN PRN Reason: Hypertension Sodium Chloride (Normal Saline) 1,000 mls @ 100 mls/hr IV ASDIRECTED [facility] Last Admin: 10/14/20 19:59 Dose: 100 mls/hr Documented by: Doxycycline Hyclate 100 mg/ (Sodium Chloride) 100 mls @ 100 mls/hr IV Q12H [facility] Last Admin: 10/16/20 08:31 Dose: 100 mls/hr Documented by: Magnesium Sulfate/Dextrose 1 (gm/ Premix) 100 mls @ 100 mls/hr IV ONETIME ONE Stop: 10/15/20 09:57 Last Admin: 10/15/20 09:15 Dose: 100 mls/hr Documented by: Propofol (Diprivan 100 Ml) Confirm Administered Dose 100 mls @ as directed .ROUTE .STK-MED ONE Stop: 10/15/20 10:04 Last Admin: 10/15/20 12:17 Dose: Not Given Documented by: Dextrose/Sodium Chloride (Dextrose 5%-1/2 Ns) 1,000 mls @ 100 mls/hr IV ASDIRECTED [facility] Last Infusion: 10/15/20 17:57 Dose: 100 mls/hr Documented by: Lactated Ringer's (Ringers, Lactated) 1,000 mls @ 125 mls/hr IV ASDIRECTED [facility] Stop: 10/16/20 03:01 Last Infusion: 10/16/20 03:00 Dose: 75 mls/hr Documented by: Lactated Ringer's (Ringers, Lactated) Confirm Administered Dose 1,000 mls @ as directed .ROUTE .STK-MED ONE Stop: 10/15/20 20:52 Last Admin: 10/15/20 20:58 Dose: Not Given Documented by: Lactated Ringer's (Ringers, Lactated) 250 mls @ 999 mls/hr IV ONETIME ONE Stop: 10/15/20 22:00 Last Admin: 10/15/20 21:45 Dose: 999 mls/hr Documented by: Insulin Human Regular (Humulin R) 5 unit IV ONETIME ONE Stop: 10/15/20 13:18 Last Admin: 10/15/20 14:01 Dose: 5 unit Documented by: Lorazepam (Ativan) 0.5 mg IVPUSH ONETIME ONE Stop: 10/14/20 18:54 Last Admin: 10/14/20 18:57 Dose: 0.5 mg Documented by: Lorazepam (Ativan) Confirm Administered Dose 2 mg .ROUTE .STK-MED ONE Stop: 10/14/20 18:54 Last Admin: 10/14/20 18:57 Dose: Not Given Documented by: Lorazepam (Ativan) 1 mg IVPUSH ONETIME STA Stop: 10/15/20 01:44 Last Admin: 10/15/20 02:01 Dose: 1 mg Documented by: Lorazepam (Ativan) 1 mg IVPUSH STAT STA Stop: 10/15/20 05:15 Last Admin: 10/15/20 05:25 Dose: 1 mg Documented by: Lorazepam (Ativan) Confirm Administered Dose 2 mg .ROUTE .STK-MED ONE Stop: 10/15/20 05:20 Last Admin: 10/15/20 05:26 Dose: Not Given Documented by: Lorazepam (Ativan) 1 mg IVPUSH STAT STA Stop: 10/15/20 06:35 Last Admin: 10/15/20 06:52 Dose: 1 mg Documented by: Lorazepam (Ativan) 2 mg IVPUSH ONETIME ONE Stop: 10/15/20 12:13 Last Admin: 10/15/20 12:15 Dose: 2 mg Documented by: Lorazepam (Ativan) Confirm Administered Dose 2 mg .ROUTE .STK-MED ONE Stop: 10/15/20 12:15 Last Admin: 10/15/20 12:32 Dose: Not Given Documented by: Lorazepam (Ativan) Confirm Administered Dose 2 mg .ROUTE .STK-MED ONE Stop: 10/15/20 12:20 Last Admin: 10/15/20 12:32 Dose: Not Given Documented by: Lorazepam (Ativan) 2 mg IVPUSH NOW STA Stop: 10/15/20 12:21 Last Admin: 10/15/20 12:20 Dose: 2 mg Documented by: Lorazepam (Ativan) 1 mg IVPUSH NOW STA Stop: 10/15/20 13:06 Last Admin: 10/15/20 13:05 Dose: 1 mg Documented by: Methylprednisolone Sodium Succinate (Solu-Medrol) 125 mg IVPUSH ONETIME ONE Stop: 10/14/20 18:54 Last Admin: 10/14/20 18:58 Dose: 125 mg Documented by: Methylprednisolone Sodium Succinate (Solu-Medrol) Confirm Administered Dose 125 mg .ROUTE .STK-MED ONE Stop: 10/14/20 18:54 Last Admin: 10/14/20 18:57 Dose: Not Given Documented by: Methylprednisolone Sodium Succinate (Solu-Medrol) 125 mg IVPUSH Q6H YANI Last Admin: 10/16/20 11:07 Dose: 125 mg Documented by: Midazolam HCl (Versed 1 Mg/Ml) 10 mg .ROUTE .STK-MED ONE Stop: 10/15/20 13:01 Morphine Sulfate (Morphine) 1 mg IVPUSH STAT STA Stop: 10/15/20 05:13 Last Admin: 10/15/20 05:20 Dose: 1 mg Documented by: Morphine Sulfate (Morphine) Confirm Administered Dose 2 mg .ROUTE .STK-MED ONE Stop: 10/15/20 05:19 Last Admin: 10/15/20 05:26 Dose: Not Given Documented by: Morphine Sulfate (Morphine) 1 mg IVPUSH STAT STA Stop: 10/15/20 06:35 Last Admin: 10/15/20 06:51 Dose: 1 mg Documented by: Morphine Sulfate (Morphine) Confirm Administered Dose 2 mg .ROUTE .STK-MED ONE Stop: 10/15/20 08:01 Last Admin: 10/15/20 09:10 Dose: Not Given Documented by: Morphine Sulfate (Morphine) 2 mg IVPUSH ONETIME ONE Stop: 10/15/20 08:05 Last Admin: 10/15/20 08:04 Dose: 2 mg Documented by: Morphine Sulfate (Morphine) 1 mg IVPUSH Q4H PRN PRN Reason: Pain (mild 1-3) Propofol (Diprivan 20 Ml) 200 mg .ROUTE .STK-MED ONE Stop: 10/15/20 13:01 Propofol (Diprivan 20 Ml) 200 mg .ROUTE .STK-MED ONE Stop: 10/15/20 13:01 Rocuronium [place] (Zemuron) 50 mg .ROUTE .STK-MED ONE Stop: 10/15/20 13:01 Rocuronium [place] (Zemuron) 50 mg .ROUTE .STK-MED ONE Stop: 10/15/20 13:01 Sodium Polystyrene Sulfonate (Kayexalate) 45 gm PO Q8H YANI Stop: 10/15/20 22:01 Last Admin: 10/15/20 21:50 Dose: Not Given Documented by: Succinylcholine Chloride (Quelicin) 200 mg .ROUTE .STK-MED ONE Stop: 10/15/20 13:01 - Exam Quality Assessment: Supplemental Oxygen, DVT Prophylaxis General: Sedated Neck: Trachea Midline, No JVD Lungs: Decreased Breath Sounds, Rhonchi Cardiovascular: Regular Rate, Regular Rhythm GI/Abdominal Exam: Soft, Non-Tender, No Distention (Male) Exam: Deferred Back Exam: Other (supine, on MV) Extremities: Normal Inspection, Normal Capillary Refill Skin: Warm Neurological: Other (sedated) Psy/Mental Status: Withdrawal Symptoms - Patient Data Lab Results Last 24 hrs: Laboratory Results - last 24 hr 10/15/20 10/15/20 10/15/20 Range/Units 12:02 12:50 14:23 WBC (4.23-9.07) K/mm3 RBC (4.63-6.08) M/mm3 Hgb (13.7-17.5) gm/dl Hct (40.1-51.0) % MCV (79.0-92.2) fl MCH (25.7-32.2) pg MCHC (32.2-35.5) g/dl RDW Std Deviation (35.1-43.9) fL Plt Count (163-337) K/mm3 MPV (9.4-12.3) fl Neut % (Auto) (34.0-67.9) % Lymph % (Auto) (21.8-53.1) % Douglas % (Auto) (5.3-12.2) % Eos % (Auto) (0.8-7.0) Baso % (Auto) (0.1-1.2) % Neut # (Auto) (1.78-5.38) K/mm3 Lymph # (Auto) (1.32-3.57) K/mm3 Douglas # (Auto) (0.30-0.82) K/mm3 Eos # (Auto) (0.04-0.54) K/mm3 Baso # (Auto) (0.01-0.08) K/mm3 Manual Slide Review D-Dimer, Quantitative (0.19-0.50) mg/L Puncture Site Rt radial ABG pH 7.21 L (7.35-7.45) ABG pCO2 68.4 H (35.0-45.0) mmHg ABG pO2 116.0 H (80.0-100.0) mmHg ABG HCO3 26.5 H (22.0-26.0) meq/L ABG O2 Saturation 97.7 H (96.0-97.0) % ABG Base Excess -3.3 L (-2-2.0) Micah Test Positive A-a Gradient 155 mmHg O2 Delivery Device Ventilator Oxygen Flow Rate FiO2 50.00 (21.00-100.00) % Tidal Volume 600.0 cc PEEP 5.0 cmH20 Sodium 139 (136-145) mEq/L Potassium 6.2 H* (3.5-5.1) mEq/L Chloride 104 (98-107) mEq/L Carbon Dioxide 23 (21-32) mEq/L Anion Gap 18.2 H (5-15) BUN 13 (7-18) mg/dL Creatinine 1.1 (0.7-1.3) mg/dL Est Cr Clr Drug Dosing 105.82 mL/min Estimated GFR (MDRD) > 60 (>60) mL/min BUN/Creatinine Ratio 11.8 L (14-18) Glucose 194 H (74-106) mg/dL Calcium 8.6 (8.5-10.1) mg/dL Magnesium (1.8-2.4) mg/dl Total Bilirubin (0.2-1.0) mg/dL AST (15-37) U/L ALT (16-63) U/L Alkaline Phosphatase (46-116) U/L C-Reactive Protein (<1.0) mg/dL Total Protein (6.4-8.2) g/dl Albumin (3.4-5.0) g/dl Globulin gm/dL Albumin/Globulin Ratio (1-2) Procalcitonin 0.06 ng/mL SARS-CoV-2 RNA (KAREN) (NEGATIVE) 10/15/20 10/15/2021 Range/Units 16:38 18:30 05:25 WBC (4.23-9.07) K/mm3 RBC (4.63-6.08) M/mm3 Hgb (13.7-17.5) gm/dl Hct (40.1-51.0) % MCV (79.0-92.2) fl MCH (25.7-32.2) pg MCHC (32.2-35.5) g/dl RDW Std Deviation (35.1-43.9) fL Plt Count (163-337) K/mm3 MPV (9.4-12.3) fl Neut % (Auto) (34.0-67.9) % Lymph % (Auto) (21.8-53.1) % Douglas % (Auto) (5.3-12.2) % Eos % (Auto) (0.8-7.0) Baso % (Auto) (0.1-1.2) % Neut # (Auto) (1.78-5.38) K/mm3 Lymph # (Auto) (1.32-3.57) K/mm3 Douglas # (Auto) (0.30-0.82) K/mm3 Eos # (Auto) (0.04-0.54) K/mm3 Baso # (Auto) (0.01-0.08) K/mm3 Manual Slide Review D-Dimer, Quantitative (0.19-0.50) mg/L Puncture Site Lt radial ABG pH 7.25 L (7.35-7.45) ABG pCO2 64.1 H (35.0-45.0) mmHg ABG pO2 50.0 L (80.0-100.0) mmHg ABG HCO3 27.1 H (22.0-26.0) meq/L ABG O2 Saturation 84.3 L (96.0-97.0) % ABG Base Excess -1.4 (-2-2.0) Micah Test Positive A-a Gradient 155 mmHg O2 Delivery Device Ventilator Oxygen Flow Rate FiO2 40.00 (21.00-100.00) % Tidal Volume 600.0 cc PEEP 5.0 cmH20 Sodium 142 (136-145) mEq/L Potassium 4.3 D (3.5-5.1) mEq/L Chloride 105 (98-107) mEq/L Carbon Dioxide 26 (21-32) mEq/L Anion Gap 15.3 H (5-15) BUN 17 (7-18) mg/dL Creatinine 1.3 (0.7-1.3) mg/dL Est Cr Clr Drug Dosing 89.54 mL/min Estimated GFR (MDRD) > 60 (>60) mL/min BUN/Creatinine Ratio 13.1 L (14-18) Glucose 93 (74-106) mg/dL Calcium 10.1 D (8.5-10.1) mg/dL Magnesium 2.5 H (1.8-2.4) mg/dl Total Bilirubin (0.2-1.0) mg/dL AST (15-37) U/L ALT (16-63) U/L Alkaline Phosphatase (46-116) U/L C-Reactive Protein (<1.0) mg/dL Total Protein (6.4-8.2) g/dl Albumin (3.4-5.0) g/dl Globulin gm/dL Albumin/Globulin Ratio (1-2) Procalcitonin ng/mL SARS-CoV-2 RNA (KAREN) (NEGATIVE) 10/16/20 10/16/20 10/16/20 Range/Units 05:25 05:25 05:25 WBC 15.53 H (4.23-9.07) K/mm3 RBC 4.76 (4.63-6.08) M/mm3 Hgb 14.2 D (13.7-17.5) gm/dl Hct 44.7 (40.1-51.0) % MCV 93.9 H D (79.0-92.2) fl MCH 29.8 (25.7-32.2) pg MCHC 31.8 L (32.2-35.5) g/dl RDW Std Deviation 41.2 (35.1-43.9) fL Plt Count 216 (163-337) K/mm3 MPV 11.0 (9.4-12.3) fl Neut % (Auto) 93.4 H (34.0-67.9) % Lymph % (Auto) 3.7 L (21.8-53.1) % Douglas % (Auto) 2.6 L (5.3-12.2) % Eos % (Auto) 0 L (0.8-7.0) Baso % (Auto) 0.0 L (0.1-1.2) % Neut # (Auto) 14.51 H (1.78-5.38) K/mm3 Lymph # (Auto) 0.57 L (1.32-3.57) K/mm3 Douglas # (Auto) 0.40 (0.30-0.82) K/mm3 Eos # (Auto) 0.00 L (0.04-0.54) K/mm3 Baso # (Auto) 0.00 L (0.01-0.08) K/mm3 Manual Slide Review Abnormal smear D-Dimer, Quantitative 9.57 H (0.19-0.50) mg/L Puncture Site ABG pH (7.35-7.45) ABG pCO2 (35.0-45.0) mmHg ABG pO2 (80.0-100.0) mmHg ABG HCO3 (22.0-26.0) meq/L ABG O2 Saturation (96.0-97.0) % ABG Base Excess (-2-2.0) Micah Test A-a Gradient mmHg O2 Delivery Device Oxygen Flow Rate FiO2 (21.00-100.00) % Tidal Volume cc PEEP cmH20 Sodium 139 (136-145) mEq/L Potassium 4.7 (3.5-5.1) mEq/L Chloride 104 (98-107) mEq/L Carbon Dioxide 24 (21-32) mEq/L Anion Gap 15.7 H (5-15) BUN 31 H (7-18) mg/dL Creatinine 1.9 H (0.7-1.3) mg/dL Est Cr Clr Drug Dosing 61.26 mL/min Estimated GFR (MDRD) 41 (>60) mL/min BUN/Creatinine Ratio 16.3 (14-18) Glucose 204 H (74-106) mg/dL Calcium 9.1 (8.5-10.1) mg/dL Magnesium (1.8-2.4) mg/dl Total Bilirubin 0.3 (0.2-1.0) mg/dL AST 14 L (15-37) U/L ALT 21 (16-63) U/L Alkaline Phosphatase 94 (46-116) U/L C-Reactive Protein 3.6 H* (<1.0) mg/dL Total Protein 6.8 (6.4-8.2) g/dl Albumin 3.2 L (3.4-5.0) g/dl Globulin 3.6 gm/dL Albumin/Globulin Ratio 0.9 L (1-2) Procalcitonin ng/mL SARS-CoV-2 RNA (KAREN) (NEGATIVE) 10/16/20 10/16/20 10/16/20 Range/Units 08:00 10:04 11:05 WBC (4.23-9.07) K/mm3 RBC (4.63-6.08) M/mm3 Hgb (13.7-17.5) gm/dl Hct (40.1-51.0) % MCV (79.0-92.2) fl MCH (25.7-32.2) pg MCHC (32.2-35.5) g/dl RDW Std Deviation (35.1-43.9) fL Plt Count (163-337) K/mm3 MPV (9.4-12.3) fl Neut % (Auto) (34.0-67.9) % Lymph % (Auto) (21.8-53.1) % Douglas % (Auto) (5.3-12.2) % Eos % (Auto) (0.8-7.0) Baso % (Auto) (0.1-1.2) % Neut # (Auto) (1.78-5.38) K/mm3 Lymph # (Auto) (1.32-3.57) K/mm3 Douglas # (Auto) (0.30-0.82) K/mm3 Eos # (Auto) (0.04-0.54) K/mm3 Baso # (Auto) (0.01-0.08) K/mm3 Manual Slide Review D-Dimer, Quantitative (0.19-0.50) mg/L Puncture Site Lt radial Lt radial ABG pH 7.27 L 7.28 L (7.35-7.45) ABG pCO2 54.1 H 55.3 H (35.0-45.0) mmHg ABG pO2 76.0 L 84.0 (80.0-100.0) mmHg ABG HCO3 23.9 25.0 (22.0-26.0) meq/L ABG O2 Saturation 93.5 L 95.7 L (96.0-97.0) % ABG Base Excess -3.4 L -2.3 L (-2-2.0) Micah Test Positive Positive A-a Gradient 284 274 mmHg O2 Delivery Device Ventilator Ventilator Oxygen Flow Rate 0.0 0.0 FiO2 60.00 60.00 (21.00-100.00) % Tidal Volume 600.0 600.0 cc PEEP 5.0 10.0 cmH20 Sodium (136-145) mEq/L Potassium (3.5-5.1) mEq/L Chloride (98-107) mEq/L Carbon Dioxide (21-32) mEq/L Anion Gap (5-15) BUN (7-18) mg/dL Creatinine (0.7-1.3) mg/dL Est Cr Clr Drug Dosing mL/min Estimated GFR (MDRD) (>60) mL/min BUN/Creatinine Ratio (14-18) Glucose (74-106) mg/dL Calcium (8.5-10.1) mg/dL Magnesium (1.8-2.4) mg/dl Total Bilirubin (0.2-1.0) mg/dL AST (15-37) U/L ALT (16-63) U/L Alkaline Phosphatase (46-116) U/L C-Reactive Protein (<1.0) mg/dL Total Protein (6.4-8.2) g/dl Albumin (3.4-5.0) g/dl Globulin gm/dL Albumin/Globulin Ratio (1-2) Procalcitonin ng/mL SARS-CoV-2 RNA (KAREN) Negative (NEGATIVE) 10/16/20 Range/Units 12:10 WBC (4.23-9.07) K/mm3 RBC (4.63-6.08) M/mm3 Hgb (13.7-17.5) gm/dl Hct (40.1-51.0) % MCV (79.0-92.2) fl MCH (25.7-32.2) pg MCHC (32.2-35.5) g/dl RDW Std Deviation (35.1-43.9) fL Plt Count (163-337) K/mm3 MPV (9.4-12.3) fl Neut % (Auto) (34.0-67.9) % Lymph % (Auto) (21.8-53.1) % Douglas % (Auto) (5.3-12.2) % Eos % (Auto) (0.8-7.0) Baso % (Auto) (0.1-1.2) % Neut # (Auto) (1.78-5.38) K/mm3 Lymph # (Auto) (1.32-3.57) K/mm3 Douglas # (Auto) (0.30-0.82) K/mm3 Eos # (Auto) (0.04-0.54) K/mm3 Baso # (Auto) (0.01-0.08) K/mm3 Manual Slide Review D-Dimer, Quantitative (0.19-0.50) mg/L Puncture Site Lt radial ABG pH 7.23 L (7.35-7.45) ABG pCO2 59.8 H (35.0-45.0) mmHg ABG pO2 134.0 H (80.0-100.0) mmHg ABG HCO3 24.4 (22.0-26.0) meq/L ABG O2 Saturation 98.8 H (96.0-97.0) % ABG Base Excess -3.9 L (-2-2.0) Micah Test Positive A-a Gradient 361 mmHg O2 Delivery Device Ventilator Oxygen Flow Rate 0.0 FiO2 80.00 (21.00-100.00) % Tidal Volume 550.0 cc PEEP 14.0 cmH20 Sodium (136-145) mEq/L Potassium (3.5-5.1) mEq/L Chloride (98-107) mEq/L Carbon Dioxide (21-32) mEq/L Anion Gap (5-15) BUN (7-18) mg/dL Creatinine (0.7-1.3) mg/dL Est Cr Clr Drug Dosing mL/min Estimated GFR (MDRD) (>60) mL/min BUN/Creatinine Ratio (14-18) Glucose (74-106) mg/dL Calcium (8.5-10.1) mg/dL Magnesium (1.8-2.4) mg/dl Total Bilirubin (0.2-1.0) mg/dL AST (15-37) U/L ALT (16-63) U/L Alkaline Phosphatase (46-116) U/L C-Reactive Protein (<1.0) mg/dL Total Protein (6.4-8.2) g/dl Albumin (3.4-5.0) g/dl Globulin gm/dL Albumin/Globulin Ratio (1-2) Procalcitonin ng/mL SARS-CoV-2 RNA (KAREN) (NEGATIVE) Result Diagrams: 10/16/20 05:25 10/16/20 15:13 Eliazar Results Last 24 hrs: Microbiology 10/16/20 10:20 Gram Stain - Final Sputum - Induced 10/14/20 19:39 Aerobic Blood Culture - Preliminary Blood - Venous NO GROWTH AFTER 1 DAY Anaerobic Blood Culture - Preliminary NO GROWTH AFTER 1 DAY 10/14/20 19:30 Aerobic Blood Culture - Preliminary Blood - Venous - Lab Draw NO GROWTH AFTER 1 DAY Anaerobic Blood Culture - Preliminary NO GROWTH AFTER 1 DAY Sepsis Event Note - Evaluation Sepsis Screening Result: Severe Sepsis Risk - Focused Exam Vital Signs: Vital Signs Temp Pulse Pulse Resp BP BP Pulse Ox 10/16/20 13:00 36.4 C 25 H 90/57 L 91 L 10/16/20 12:59 110 H 117/88 10/16/20 11:52 36.2 C 26 H 117/88 97 10/16/20 11:00 36.1 C 26 H 105/50 L 97 10/16/20 10:53 10/16/20 10:14 10/16/20 10:00 36.3 C 104 H 22 H 119/56 L 94 L 10/16/20 09:00 36.2 C 106 H 22 H 112/58 L 91 L 10/16/20 08:45 10/16/20 07:34 36.1 C 105 H 24 H 120/55 L 94 L 10/16/20 07:01 23 H 124/55 L 94 L 10/16/20 07:00 22 H 94 L 10/16/20 06:42 24 H 115/65 94 L 10/16/20 06:41 24 H 92 L 10/16/20 06:35 25 H 121/56 L 94 L 10/16/20 06:34 26 H 93 L 10/16/20 06:21 24 H 125/63 93 L 10/16/20 06:20 23 H 94 L 10/16/20 06:01 22 H 126/56 L 93 L 10/16/20 06:00 23 H 94 L 10/16/20 05:41 22 H 118/56 L 94 L 10/16/20 05:40 26 H 95 10/16/20 05:34 10/16/20 05:21 24 H 118/51 L 95 10/16/20 05:20 24 H 94 L 10/16/20 05:01 24 H 116/58 L 94 L 10/16/20 05:00 24 H 95 10/16/20 04:41 24 H 115/54 L 95 10/16/20 04:40 24 H 95 10/16/20 04:36 24 H 115/52 L 94 L 10/16/20 04:35 24 H 95 10/16/20 04:17 24 H 113/50 L 94 L 10/16/20 04:16 24 H 94 L 10/16/20 04:02 24 H 114/49 L 95 10/16/20 04:01 24 H 95 10/16/20 04:00 36.1 C 24 H 95 10/16/20 03:47 24 H 112/49 L 94 L 10/16/20 03:46 24 H 92 L 10/16/20 03:32 24 H 109/51 L 95 10/16/20 03:31 24 H 94 L 10/16/20 03:17 24 H 112/53 L 96 10/16/20 03:16 24 H 94 L 10/16/20 03:01 24 H 111/52 L 96 10/16/20 03:00 24 H 97 10/16/20 02:46 24 H 105/50 L 96 10/16/20 02:45 24 H 93 L 10/16/20 02:31 24 H 101/47 L 96 10/16/20 02:30 24 H 94 L 10/16/20 02:23 10/16/20 02:16 24 H 110/54 L 97 10/16/20 02:15 24 H 95 10/16/20 02:01 24 H 111/53 L 97 10/16/20 02:00 24 H 95 Pulse Ox 10/16/20 13:00 10/16/20 12:59 10/16/20 11:52 10/16/20 11:00 10/16/20 10:53 97 10/16/20 10:14 94 L 10/16/20 10:00 10/16/20 09:00 10/16/20 08:45 91 L 10/16/20 07:34 10/16/20 07:01 10/16/20 07:00 10/16/20 06:42 10/16/20 06:41 10/16/20 06:35 10/16/20 06:34 10/16/20 06:21 10/16/20 06:20 10/16/20 06:01 10/16/20 06:00 10/16/20 05:41 10/16/20 05:40 10/16/20 05:34 95 10/16/20 05:21 10/16/20 05:20 10/16/20 05:01 10/16/20 05:00 10/16/20 04:41 10/16/20 04:40 10/16/20 04:36 10/16/20 04:35 10/16/20 04:17 10/16/20 04:16 10/16/20 04:02 10/16/20 04:01 10/16/20 04:00 10/16/20 03:47 10/16/20 03:46 10/16/20 03:32 10/16/20 03:31 10/16/20 03:17 10/16/20 03:16 10/16/20 03:01 10/16/20 03:00 10/16/20 02:46 10/16/20 02:45 10/16/20 02:31 10/16/20 02:30 10/16/20 02:23 96 10/16/20 02:16 10/16/20 02:15 10/16/20 02:01 10/16/20 02:00 - Problem List Review Problem List Initiated/Reviewed/Updated: Yes - My Orders Last 24 Hours: My Active Orders 10/15/20 13:13 Calcium Chloride [Calcium Chloride 10%] 1 gm IVPUSH Q4H PRN 10/15/20 13:15 LORazepam 40 mg Dextrose 5% in Water 20 ml IV TITRATE 10/15/20 14:00 Dextrose 50% in Water 50 ml IVPUSH ASDIRECTED 10/15/20 15:13 Urinary Catheter Assessment [RC] Q4HR 10/15/20 15:43 STREP PNEUMONIAE ANTIGEN [MREF] Routine 10/15/20 16:06 Patient Status [ADT] Routine 10/15/20 17:59 hydrALAZINE [Apresoline] 10 mg IVPUSH Q8H PRN 10/15/20 21:30 AMPHET/METH EXT CONF (GCMS) Routine 10/16/20 03:00 Lactated Ringers [Ringers, Lactated] 1,000 ml IV ASDIRECTED 10/16/20 05:25 PROCALCITONIN [REF] Routine 10/16/20 07:50 Albuterol [Proventil Neb Soln] 2.5 mg NEB Q4H PRN 10/16/20 09:00 Budesonide [Pulmicort] 1 mg NEB BID 10/16/20 09:28 Bedrest [RC] ASDIRECTED 10/16/20 10:00 Initiate/Renew Non-Violent Restraints (All Ages) Q24H Nrsg Assess Restraint Init/Mon [RC] Q2HR 10/16/20 10:20 CULTURE SPUTUM + SMEAR [RM] Routine 10/16/20 11:30 Azithromycin [Zithromax] 500 mg Sodium Chloride 0.9% [Normal Saline (AdvBag)] 250 ml IV Q24H 10/16/20 12:00 Albuterol/Ipratropium [DuoNeb 3.0-0.5 MG/3 ML] 3 ml NEB Q4H 10/16/20 12:30 cefTRIAXone [Rocephin] 2 gm Sodium Chloride 0.9% [Normal Saline] 100 ml IV Q24H 10/16/20 13:27 BASIC METABOLIC PANEL,BMP [CHEM] Routine 10/16/20 13:28 LACTIC ACID W/ REFLEX [LACTATE SEPSIS W/ REFLEX] [CHEM] Stat 10/16/20 13:29 Chest 1V Frontal [CR] Routine 10/16/20 13:30 D Dimer [D-DIMER QUANTITATIVE] [COAG] Routine 10/16/20 16:00 BLOOD GAS ARTERIAL [BG] Timed 10/16/20 18:00 dexAMETHasone [Decadron] 6 mg IVPUSH Q24H 10/16/20 21:00 Enoxaparin [Lovenox] 100 mg SUBCUT BID Famotidine [Pepcid] 20 mg IVPUSH BEDTIME 10/17/20 05:00 CRP [C-REACTIVE PROTEIN] [CHEM] DAILY LACTIC ACID [CHEM] DAILY MAGNESIUM [CHEM] DAILY PRO B-TYPE NATRIUR PEPT,BNPPRO [CHEM] Routine 10/17/20 05:16 BMP [BASIC METABOLIC PANEL,BMP] [CHEM] DAILY 10/17/20 06:00 BLOOD GAS ARTERIAL [BG] DAILY MAGNESIUM [CHEM] DAILY 10/17/20 10:00 Initiate/Renew Non-Violent Restraints (All Ages) Q24H 10/18/20 05:00 CRP [C-REACTIVE PROTEIN] [CHEM] DAILY LACTIC ACID [CHEM] DAILY MAGNESIUM [CHEM] DAILY 10/18/20 05:16 BMP [BASIC METABOLIC PANEL,BMP] [CHEM] DAILY 10/18/20 06:00 BLOOD GAS ARTERIAL [BG] DAILY 10/19/20 05:00 CRP [C-REACTIVE PROTEIN] [CHEM] DAILY LACTIC ACID [CHEM] DAILY 10/19/20 05:16 BMP [BASIC METABOLIC PANEL,BMP] [CHEM] DAILY 10/20/20 05:00 LACTIC ACID [CHEM] DAILY 10/20/20 05:16 BMP [BASIC METABOLIC PANEL,BMP] [CHEM] DAILY 10/21/20 05:00 LACTIC ACID [CHEM] DAILY 10/21/20 05:16 BMP [BASIC METABOLIC PANEL,BMP] [CHEM] DAILY - Plan Plan:: 30 year old male with acute hypoxemic respiratory distress, presumptively civered for atypical pneumonia with an ATB. the patient tested positive for marijuana and methamphetamine. Stated that the marijuana had to have been lace d, he denied active use of methamphetamine. Impression: Acute hypoxemic respiratory distress-subsequent failure, S/P intubation after failed BiPAP Methamphetamine positive, query inhalation eg "Gerson" cf IDU Hypertensive Methamphetamine withdrawal Chronic Obesity Polysubstance abuse Asthma Plan: HTN meds: scheduled/prn hydralazine; Vasotec; Lopressor Doxycycline 100 mg Q12 H-stopped; started Zithromax 500 mg, Rocephin 2 GM daily respectively. Nebs: Duonebs/Albuterol, scheduled/prn Steroid change to Dexamethasone 6 mg IV daily. Sedation needed d/t MV, avoid agitation with withdrawal from methamphetamine. DVT prophylaxis, Lovernox 40 mg Q 12 H-->change to 95 mg SQ every 12 hours NPO except meds PCXR scheduled or prn pending clinical course MV, adjust VT/PEEP/FiO2 per response, keep O2 sat>92% AM labs re: sepsis/COVID-19 COVID-19 precaution s/p intubation
[2020-10-16] MEDS ORDERED: Sodium Polystyrene Sulfonate 15 GM/60 ML Susp 60 ML Bot PO ONE ×3 (15:43→20:00)
[2020-10-16] MEDS: Dexamethasone 4 MG/ML SDV IVPUSH SCH (17:53)
[2020-10-16] MEDS ORDERED: Lactated Ringers 500 ML IV ONE (18:03)
[2020-10-16] MEDS: Enoxaparin 100 MG/1 ML Syringe SUBCUT SCH (20:43)
[2020-10-16] MEDS: Famotidine 20 MG/2 ML SDV IVPUSH SCH (20:43)
[2020-10-17] MEDS: Albuterol/Ipratropium 3.0-0.5 MG/3 ML Neb Soln NEB SCH ×7 (00:01→23:21)
[2020-10-17] MEDS: propofoL 100 ML IV SCH ×4 (02:25→20:52)
[2020-10-17] MEDS: Lactated Ringers 1,000 ML IV SCH ×2 (03:01→13:22)
--- NOTE | 2020-10-17 07:43 | PCM.PN ---
- General Info Date of Service: 10/17/20 Subjective Update: Patient is more hemodynamically stable overnight. Remains sedated per ICU protocol, Precedex/Propofol used d/t Methamphetamine withdrawal. The patient received aggressive hydration after ABDOULAYE occurred, this responded appropriately. Current vent settings have been changed after a good night, VT 550/PEEP 12/RR18/FIO2 0.40. Patient will be allowed to have minimal vent setting changes, goal is to start SBT on 10/18/20; extubate 10/18-10/19 as tolerated. Continue empiric SARS-COV-2 treatment with ATBs and Steroid. This is day, 2 of the combination. He has tested negative twice. RUE doppler d/t asymmetrical size difference with elevated D Dimer. Currently on Lovenox 1mg/kg BID; Doppler is negative, will continue current management for total of 5 days, ie COVID-19 treatment. Also Vent settings will be changed to PEEP of 8 with 40% FIO2; resume titration to SBT (Spontaneous Breathing Trial) as tolerated. Functional Status: Reports: Urinating - Review of Systems General: Reports: No Symptoms HEENT: Reports: No Symptoms Pulmonary: Reports: No Symptoms Cardiovascular: Reports: No Symptoms Gastrointestinal: Reports: No Symptoms Genitourinary: Reports: No Symptoms Musculoskeletal: Reports: No Symptoms Skin: Reports: No Symptoms Neurological: Reports: No Symptoms Psychiatric: Reports: No Symptoms - Patient Data Vitals - Most Recent: Last Vital Signs Temp 36.3 C 10/17/20 07:32 Pulse 110 H 10/16/20 12:59 Resp 18 10/17/20 07:32 BP 135/72 10/17/20 07:32 Pulse Ox 100 10/17/20 07:32 Weight - Most Recent: 99.972 kg I&O - Last 24 Hours: Intake & Output 10/16/20 10/17/20 10/17/20 22:59 06:59 14:59 Intake Total 2292 2289 Output Total 910 710 Balance 1382 1579 Lab Results Last 24 Hours: Laboratory Results - last 24 hr 10/16/20 10/16/20 10/16/20 Range/Units 08:00 10:04 11:05 D-Dimer, Quantitative (0.19-0.50) mg/L Puncture Site Lt radial Lt radial ABG pH 7.27 L 7.28 L (7.35-7.45) ABG pCO2 54.1 H 55.3 H (35.0-45.0) mmHg ABG pO2 76.0 L 84.0 (80.0-100.0) mmHg ABG HCO3 23.9 25.0 (22.0-26.0) meq/L ABG O2 Saturation 93.5 L 95.7 L (96.0-97.0) % ABG Base Excess -3.4 L -2.3 L (-2-2.0) Micah Test Positive Positive A-a Gradient 284 274 mmHg O2 Delivery Device Ventilator Ventilator Oxygen Flow Rate 0.0 0.0 FiO2 60.00 60.00 (21.00-100.00) % Tidal Volume 600.0 600.0 cc PEEP 5.0 10.0 cmH20 Sodium (136-145) mEq/L Potassium (3.5-5.1) mEq/L Chloride (98-107) mEq/L Carbon Dioxide (21-32) mEq/L Anion Gap (5-15) BUN (7-18) mg/dL Creatinine (0.7-1.3) mg/dL Est Cr Clr Drug Dosing mL/min Estimated GFR (MDRD) (>60) mL/min BUN/Creatinine Ratio (14-18) Glucose (74-106) mg/dL Lactic Acid (0.4-2.0) mmol/L Calcium (8.5-10.1) mg/dL Magnesium (1.8-2.4) mg/dl C-Reactive Protein (<1.0) mg/dL NT-Pro-B Natriuret Pep (0-125) pg/mL SARS-CoV-2 RNA (KAREN) Negative (NEGATIVE) 10/16/20 10/16/20 10/16/20 Range/Units 12:10 14:08 14:08 D-Dimer, Quantitative (0.19-0.50) mg/L Puncture Site Lt radial ABG pH 7.23 L (7.35-7.45) ABG pCO2 59.8 H (35.0-45.0) mmHg ABG pO2 134.0 H (80.0-100.0) mmHg ABG HCO3 24.4 (22.0-26.0) meq/L ABG O2 Saturation 98.8 H (96.0-97.0) % ABG Base Excess -3.9 L (-2-2.0) Micah Test Positive A-a Gradient 361 mmHg O2 Delivery Device Ventilator Oxygen Flow Rate 0.0 FiO2 80.00 (21.00-100.00) % Tidal Volume 550.0 cc PEEP 14.0 cmH20 Sodium 141 (136-145) mEq/L Potassium 5.3 H (3.5-5.1) mEq/L Chloride 105 (98-107) mEq/L Carbon Dioxide 25 (21-32) mEq/L Anion Gap 16.3 H (5-15) BUN 35 H (7-18) mg/dL Creatinine 2.0 H (0.7-1.3) mg/dL Est Cr Clr Drug Dosing 58.20 mL/min Estimated GFR (MDRD) 39 (>60) mL/min BUN/Creatinine Ratio 17.5 (14-18) Glucose 172 H (74-106) mg/dL Lactic Acid 2.8 H* (0.4-2.0) mmol/L Calcium 9.0 (8.5-10.1) mg/dL Magnesium (1.8-2.4) mg/dl C-Reactive Protein (<1.0) mg/dL NT-Pro-B Natriuret Pep (0-125) pg/mL SARS-CoV-2 RNA (KAREN) (NEGATIVE) 10/16/20 10/16/20 10/16/20 Range/Units 14:08 15:13 16:30 D-Dimer, Quantitative 9.17 H (0.19-0.50) mg/L Puncture Site Rt radial ABG pH 7.31 L (7.35-7.45) ABG pCO2 50.8 H (35.0-45.0) mmHg ABG pO2 93.0 (80.0-100.0) mmHg ABG HCO3 24.7 (22.0-26.0) meq/L ABG O2 Saturation 96.5 (96.0-97.0) % ABG Base Excess -1.8 (-2-2.0) Micah Test Positive A-a Gradient 272 mmHg O2 Delivery Device Ventilator Oxygen Flow Rate 0.0 FiO2 60.00 (21.00-100.00) % Tidal Volume 550.0 cc PEEP 14.0 cmH20 Sodium (136-145) mEq/L Potassium 5.4 H (3.5-5.1) mEq/L Chloride (98-107) mEq/L Carbon Dioxide (21-32) mEq/L Anion Gap (5-15) BUN (7-18) mg/dL Creatinine (0.7-1.3) mg/dL Est Cr Clr Drug Dosing mL/min Estimated GFR (MDRD) (>60) mL/min BUN/Creatinine Ratio (14-18) Glucose (74-106) mg/dL Lactic Acid (0.4-2.0) mmol/L Calcium (8.5-10.1) mg/dL Magnesium (1.8-2.4) mg/dl C-Reactive Protein (<1.0) mg/dL NT-Pro-B Natriuret Pep (0-125) pg/mL SARS-CoV-2 RNA (KAREN) (NEGATIVE) 10/16/20 10/17/20 10/17/20 Range/Units 17:00 04:50 04:50 D-Dimer, Quantitative (0.19-0.50) mg/L Puncture Site ABG pH (7.35-7.45) ABG pCO2 (35.0-45.0) mmHg ABG pO2 (80.0-100.0) mmHg ABG HCO3 (22.0-26.0) meq/L ABG O2 Saturation (96.0-97.0) % ABG Base Excess (-2-2.0) Micah Test A-a Gradient mmHg O2 Delivery Device Oxygen Flow Rate FiO2 (21.00-100.00) % Tidal Volume cc PEEP cmH20 Sodium (136-145) mEq/L Potassium (3.5-5.1) mEq/L Chloride (98-107) mEq/L Carbon Dioxide (21-32) mEq/L Anion Gap (5-15) BUN (7-18) mg/dL Creatinine (0.7-1.3) mg/dL Est Cr Clr Drug Dosing mL/min Estimated GFR (MDRD) (>60) mL/min BUN/Creatinine Ratio (14-18) Glucose (74-106) mg/dL Lactic Acid 2.2 H* (0.4-2.0) mmol/L Calcium (8.5-10.1) mg/dL Magnesium 2.8 H (1.8-2.4) mg/dl C-Reactive Protein 3.1 H* (<1.0) mg/dL NT-Pro-B Natriuret Pep 110 (0-125) pg/mL SARS-CoV-2 RNA (KAREN) (NEGATIVE) 10/17/20 10/17/20 10/17/20 Range/Units 04:50 04:50 06:35 D-Dimer, Quantitative (0.19-0.50) mg/L Puncture Site Rt radial ABG pH 7.35 (7.35-7.45) ABG pCO2 51.7 H (35.0-45.0) mmHg ABG pO2 163.0 H* (80.0-100.0) mmHg ABG HCO3 27.9 H (22.0-26.0) meq/L ABG O2 Saturation 99.1 H (96.0-97.0) % ABG Base Excess 1.8 (-2-2.0) Micah Test A-a Gradient 201 mmHg O2 Delivery Device Ventilator Oxygen Flow Rate FiO2 60.00 (21.00-100.00) % Tidal Volume cc PEEP 14.0 cmH20 Sodium 143 (136-145) mEq/L Potassium 5.0 (3.5-5.1) mEq/L Chloride 108 H (98-107) mEq/L Carbon Dioxide 29 (21-32) mEq/L Anion Gap 11.0 (5-15) BUN 28 H (7-18) mg/dL Creatinine 1.2 (0.7-1.3) mg/dL Est Cr Clr Drug Dosing 97.00 mL/min Estimated GFR (MDRD) > 60 (>60) mL/min BUN/Creatinine Ratio 23.3 H (14-18) Glucose 154 H (74-106) mg/dL Lactic Acid 1.6 (0.4-2.0) mmol/L Calcium 8.7 (8.5-10.1) mg/dL Magnesium (1.8-2.4) mg/dl C-Reactive Protein (<1.0) mg/dL NT-Pro-B Natriuret Pep (0-125) pg/mL SARS-CoV-2 RNA (KAREN) (NEGATIVE) Eliazar Results Last 24 Hours: Microbiology 10/14/20 19:39 Aerobic Blood Culture - Preliminary Blood - Venous NO GROWTH AFTER 2 DAYS Anaerobic Blood Culture - Preliminary NO GROWTH AFTER 2 DAYS 10/14/20 19:30 Aerobic Blood Culture - Preliminary Blood - Venous - Lab Draw NO GROWTH AFTER 2 DAYS Anaerobic Blood Culture - Preliminary NO GROWTH AFTER 2 DAYS 10/15/20 15:43 Streptococcus pneumoniae Antigen (M - Final Urine 10/16/20 10:20 Gram Stain - Final Sputum - Induced Med Orders - Current: Current Medications Acetaminophen (Tylenol) 650 mg PO Q6H PRN PRN Reason: Pain/Fever Albuterol (Proventil Neb Soln) 2.5 mg NEB Q4H PRN PRN Reason: Shortness of Breath Albuterol/Ipratropium (Duoneb 3.0-0.5 Mg/3 Ml) 3 ml NEB Q4H YANI Last Admin: 10/17/20 04:29 Dose: 3 ml Documented by: Budesonide (Pulmicort) 1 mg NEB BID [facility] Last Admin: 10/16/20 20:09 Dose: 1 mg Documented by: Calcium Chloride (Calcium Chloride 10%) 1 gm IVPUSH Q4H PRN PRN Reason: K>6 Last Admin: 10/15/20 14:44 Dose: 1 gm Documented by: Dexamethasone (Decadron) 6 mg IVPUSH Q24H [facility] Last Admin: 10/16/20 17:53 Dose: 6 mg Documented by: Dextrose/Water (Dextrose 50% In Water) 50 ml IVPUSH ASDIRECTED [facility] Enoxaparin Sodium (Lovenox) 100 mg SUBCUT BID [facility] Last Admin: 10/16/20 20:43 Dose: 100 mg Documented by: Famotidine (Pepcid) 20 mg IVPUSH BEDTIME YANI Last Admin: 10/16/20 20:43 Dose: 20 mg Documented by: Haloperidol Lactate (Haldol) 2 mg IVPUSH Q4H PRN PRN Reason: Withdrawal Symptoms Hydralazine HCl (Apresoline) 10 mg IVPUSH Q8H PRN PRN Reason: Hypertension dexmedeTOMIDine in dextrose 5% (400 mcg/ Premix) 100 mls @ 0 mls/hr IV TITRATE YANI; Protocol Last Infusion: 10/17/20 05:09 Dose: 9.5 mls/hr Documented by: Propofol (Diprivan 100 Ml) 100 mls @ 2.864 mls/hr IV TITRATE YANI; Protocol Last Admin: 10/17/20 02:25 Dose: 25 mcg/kg/min, 14.322 mls/hr Documented by: Lorazepam 40 mg/ Dextrose/ (Water) 40 mls @ 1 mls/hr IV TITRATE YANI; Protocol Last Admin: 10/16/20 09:08 Dose: 0.5 mg/hr, 0.5 mls/hr Documented by: Lactated Ringer's (Ringers, Lactated) 1,000 mls @ 75 mls/hr IV ASDIRECTED YANI Last Infusion: 10/17/20 07:24 Dose: 75 mls/hr Documented by: Azithromycin 500 mg/ Sodium (Chloride) 250 mls @ 250 mls/hr IV Q24H YANI Last Admin: 10/16/20 11:22 Dose: 250 mls/hr Documented by: Ceftriaxone Sodium 2 gm/ (Sodium Chloride) 100 mls @ 200 mls/hr IV Q24H YANI Last Admin: 10/16/20 12:36 Dose: 200 mls/hr Documented by: Lorazepam (Ativan) 0 mg IVPUSH Q1H PRN; Protocol PRN Reason: Withdrawal Symptoms Last Admin: 10/15/20 08:53 Dose: 1 mg Documented by: Lorazepam (Ativan) 1 mg IVPUSH Q4H PRN PRN Reason: Anxiety Metoprolol Tartrate (Lopressor) 5 mg IVPUSH Q4H PRN PRN Reason: heart rate >110 Last Admin: 10/16/20 12:59 Dose: 5 mg Documented by: Sodium Chloride (Saline Flush) 10 ml FLUSH ASDIRECTED PRN PRN Reason: Keep Vein Open Last Admin: 10/14/20 19:00 Dose: 10 ml Documented by: Discontinued Medications Acetaminophen (Tylenol) 650 mg PO NOW ONE Stop: 10/14/20 21:36 Last Admin: 10/14/20 22:23 Dose: Not Given Documented by: Albuterol (Proventil Neb Soln) Confirm Administered Dose 2.5 mg .ROUTE .STK-MED ONE Stop: 10/14/20 18:51 Last Admin: 10/14/20 18:57 Dose: Not Given Documented by: Albuterol (Proventil Neb Soln) 2.5 mg NEB ONETIME ONE Stop: 10/14/20 18:53 Last Admin: 10/14/20 18:55 Dose: 2.5 mg Documented by: Albuterol (Proventil Neb Soln) 2.5 mg NEB Q4HRRT YANI Last Admin: 10/16/20 05:34 Dose: 2.5 mg Documented by: Albuterol/Ipratropium (Duoneb 3.0-0.5 Mg/3 Ml) 3 ml NEB ONETIME ONE Stop: 10/14/20 19:14 Last Admin: 10/14/20 19:23 Dose: 3 ml Documented by: Albuterol/Ipratropium (Duoneb 3.0-0.5 Mg/3 Ml) 3 ml NEB STAT STA Stop: 10/15/20 05:17 Last Admin: 10/15/20 05:26 Dose: 3 ml Documented by: Albuterol/Ipratropium (Duoneb 3.0-0.5 Mg/3 Ml) 3 ml NEB STAT STA Stop: 10/15/20 06:36 Last Admin: 10/15/20 06:44 Dose: 3 ml Documented by: Albuterol/Ipratropium (Duoneb 3.0-0.5 Mg/3 Ml) 3 ml NEB Q6HRRT YANI Last Admin: 10/16/20 08:44 Dose: 3 ml Documented by: Budesonide (Pulmicort) 1 mg NEB BIDRT YANI Dexamethasone (Decadron) 6 mg IVPUSH Q24H YANI Dexmedetomidine HCl (Precedex) 0 mcg IV CONTINUOUS YANI; Protocol Enalaprilat (Vasotec Iv) 0.625 mg IVPUSH Q6H PRN PRN Reason: Hypertension Last Admin: 10/15/20 11:22 Dose: 0.625 mg Documented by: Enalaprilat (Vasotec Iv) 1.25 mg IVPUSH Q6H PRN PRN Reason: Hypertension Enoxaparin Sodium (Lovenox) 40 mg SUBCUT Q12H [facility] Last Admin: 10/16/20 02:13 Dose: 40 mg Documented by: Enoxaparin Sodium (Lovenox) 60 mg SUBCUT ONETIME ONE Stop: 10/16/20 11:46 Last Admin: 10/16/20 11:46 Dose: 60 mg Documented by: Famotidine (Pepcid) 20 mg IVPUSH ONETIME ONE Stop: 10/15/20 20:50 Last Admin: 10/15/20 21:04 Dose: 20 mg Documented by: Haloperidol Lactate (Haldol) Confirm Administered Dose 5 mg .ROUTE .STK-MED ONE Stop: 10/15/20 09:41 Last Admin: 10/15/20 09:52 Dose: Not Given Documented by: Haloperidol Lactate (Haldol) 1 mg IVPUSH ONETIME ONE Stop: 10/15/20 09:45 Last Admin: 10/15/20 12:09 Dose: 1 mg Documented by: Haloperidol Lactate (Haldol) 1 mg IVPUSH ONETIME ONE Stop: 10/15/20 09:47 Last Admin: 10/15/20 09:46 Dose: 1 mg Documented by: Haloperidol Lactate (Haldol) Confirm Administered Dose 5 mg .ROUTE .STK-MED ONE Stop: 10/15/20 09:59 Last Admin: 10/15/20 12:17 Dose: Not Given Documented by: Hydralazine HCl (Apresoline) 10 mg IVPUSH Q2H PRN PRN Reason: Hypertension Last Admin: 10/15/20 09:28 Dose: 10 mg Documented by: Hydralazine HCl (Apresoline) Confirm Administered Dose 20 mg .ROUTE .STK-MED ONE Stop: 10/15/20 10:48 Last Admin: 10/15/20 11:50 Dose: Not Given Documented by: Hydralazine HCl (Apresoline) 20 mg IVPUSH Q8H [facility] Last Admin: 10/15/20 13:52 Dose: Not Given Documented by: Hydralazine HCl (Apresoline) 10 mg IVPUSH ONETIME ONE Stop: 10/15/20 10:50 Last Admin: 10/15/20 10:49 Dose: 10 mg Documented by: Hydralazine HCl (Apresoline) 20 mg IVPUSH Q8H [facility] Last Admin: 10/15/20 15:54 Dose: Not Given Documented by: Hydralazine HCl (Apresoline) 20 mg IVPUSH Q8H PRN PRN Reason: Hypertension Sodium Chloride (Normal Saline) 1,000 mls @ 100 mls/hr IV ASDIRECTED [facility] Last Admin: 10/14/20 19:59 Dose: 100 mls/hr Documented by: Doxycycline Hyclate 100 mg/ (Sodium Chloride) 100 mls @ 100 mls/hr IV Q12H [facility] Last Admin: 10/16/20 08:31 Dose: 100 mls/hr Documented by: Magnesium Sulfate/Dextrose 1 (gm/ Premix) 100 mls @ 100 mls/hr IV ONETIME ONE Stop: 10/15/20 09:57 Last Admin: 10/15/20 09:15 Dose: 100 mls/hr Documented by: Propofol (Diprivan 100 Ml) Confirm Administered Dose 100 mls @ as directed .ROUTE .STK-MED ONE Stop: 10/15/20 10:04 Last Admin: 10/15/20 12:17 Dose: Not Given Documented by: Dextrose/Sodium Chloride (Dextrose 5%-1/2 Ns) 1,000 mls @ 100 mls/hr IV ASDIRECTED [facility] Last Infusion: 10/15/20 17:57 Dose: 100 mls/hr Documented by: Lactated Ringer's (Ringers, Lactated) 1,000 mls @ 125 mls/hr IV ASDIRECTED [facility] Stop: 10/16/20 03:01 Last Infusion: 10/16/20 03:00 Dose: 75 mls/hr Documented by: Lactated Ringer's (Ringers, Lactated) Confirm Administered Dose 1,000 mls @ as directed .ROUTE .STK-MED ONE Stop: 10/15/20 20:52 Last Admin: 10/15/20 20:58 Dose: Not Given Documented by: Lactated Ringer's (Ringers, Lactated) 250 mls @ 999 mls/hr IV ONETIME ONE Stop: 10/15/20 22:00 Last Admin: 10/15/20 21:45 Dose: 999 mls/hr Documented by: Lactated Ringer's (Ringers, Lactated) 500 mls @ 999 mls/hr IV ONETIME ONE Stop: 10/16/20 18:33 Last Admin: 10/16/20 18:21 Dose: 999 mls/hr Documented by: Insulin Human Regular (Humulin R) 5 unit IV ONETIME ONE Stop: 10/15/20 13:18 Last Admin: 10/15/20 14:01 Dose: 5 unit Documented by: Lorazepam (Ativan) 0.5 mg IVPUSH ONETIME ONE Stop: 10/14/20 18:54 Last Admin: 10/14/20 18:57 Dose: 0.5 mg Documented by: Lorazepam (Ativan) Confirm Administered Dose 2 mg .ROUTE .STK-MED ONE Stop: 10/14/20 18:54 Last Admin: 10/14/20 18:57 Dose: Not Given Documented by: Lorazepam (Ativan) 1 mg IVPUSH ONETIME STA Stop: 10/15/20 01:44 Last Admin: 10/15/20 02:01 Dose: 1 mg Documented by: Lorazepam (Ativan) 1 mg IVPUSH STAT STA Stop: 10/15/20 05:15 Last Admin: 10/15/20 05:25 Dose: 1 mg Documented by: Lorazepam (Ativan) Confirm Administered Dose 2 mg .ROUTE .STK-MED ONE Stop: 10/15/20 05:20 Last Admin: 10/15/20 05:26 Dose: Not Given Documented by: Lorazepam (Ativan) 1 mg IVPUSH STAT STA Stop: 10/15/20 06:35 Last Admin: 10/15/20 06:52 Dose: 1 mg Documented by: Lorazepam (Ativan) 2 mg IVPUSH ONETIME ONE Stop: 10/15/20 12:13 Last Admin: 10/15/20 12:15 Dose: 2 mg Documented by: Lorazepam (Ativan) Confirm Administered Dose 2 mg .ROUTE .STK-MED ONE Stop: 10/15/20 12:15 Last Admin: 10/15/20 12:32 Dose: Not Given Documented by: Lorazepam (Ativan) Confirm Administered Dose 2 mg .ROUTE .STK-MED ONE Stop: 10/15/20 12:20 Last Admin: 10/15/20 12:32 Dose: Not Given Documented by: Lorazepam (Ativan) 2 mg IVPUSH NOW STA Stop: 10/15/20 12:21 Last Admin: 10/15/20 12:20 Dose: 2 mg Documented by: Lorazepam (Ativan) 1 mg IVPUSH NOW STA Stop: 10/15/20 13:06 Last Admin: 10/15/20 13:05 Dose: 1 mg Documented by: Methylprednisolone Sodium Succinate (Solu-Medrol) 125 mg IVPUSH ONETIME ONE Stop: 10/14/20 18:54 Last Admin: 10/14/20 18:58 Dose: 125 mg Documented by: Methylprednisolone Sodium Succinate (Solu-Medrol) Confirm Administered Dose 125 mg .ROUTE .STK-MED ONE Stop: 10/14/20 18:54 Last Admin: 10/14/20 18:57 Dose: Not Given Documented by: Methylprednisolone Sodium Succinate (Solu-Medrol) 125 mg IVPUSH Q6H YANI Last Admin: 10/16/20 11:07 Dose: 125 mg Documented by: Midazolam HCl (Versed 1 Mg/Ml) 10 mg .ROUTE .STK-MED ONE Stop: 10/15/20 13:01 Morphine Sulfate (Morphine) 1 mg IVPUSH STAT STA Stop: 10/15/20 05:13 Last Admin: 10/15/20 05:20 Dose: 1 mg Documented by: Morphine Sulfate (Morphine) Confirm Administered Dose 2 mg .ROUTE .STK-MED ONE Stop: 10/15/20 05:19 Last Admin: 10/15/20 05:26 Dose: Not Given Documented by: Morphine Sulfate (Morphine) 1 mg IVPUSH STAT STA Stop: 10/15/20 06:35 Last Admin: 10/15/20 06:51 Dose: 1 mg Documented by: Morphine Sulfate (Morphine) Confirm Administered Dose 2 mg .ROUTE .STK-MED ONE Stop: 10/15/20 08:01 Last Admin: 10/15/20 09:10 Dose: Not Given Documented by: Morphine Sulfate (Morphine) 2 mg IVPUSH ONETIME ONE Stop: 10/15/20 08:05 Last Admin: 10/15/20 08:04 Dose: 2 mg Documented by: Morphine Sulfate (Morphine) 1 mg IVPUSH Q4H PRN PRN Reason: Pain (mild 1-3) Propofol (Diprivan 20 Ml) 200 mg .ROUTE .STK-MED ONE Stop: 10/15/20 13:01 Propofol (Diprivan 20 Ml) 200 mg .ROUTE .STK-MED ONE Stop: 10/15/20 13:01 Rocuronium Olga (Zemuron) 50 mg .ROUTE .STK-MED ONE Stop: 10/15/20 13:01 Rocuronium Olga (Zemuron) 50 mg .ROUTE .STK-MED ONE Stop: 10/15/20 13:01 Sodium Polystyrene Sulfonate (Kayexalate) 45 gm PO Q8H YANI Stop: 10/15/20 22:01 Last Admin: 10/15/20 21:50 Dose: Not Given Documented by: Sodium Polystyrene Sulfonate (Kayexalate) 45 gm PO ONETIME ONE Stop: 10/16/20 19:01 Last Admin: 10/16/20 18:44 Dose: 45 gm Documented by: Succinylcholine Chloride (Quelicin) 200 mg .ROUTE .STK-MED ONE Stop: 10/15/20 13:01 - Exam Quality Assessment: Supplemental Oxygen, DVT Prophylaxis General: Other (sedated) HEENT: Pupils Equal, Pupils Reactive Neck: Trachea Midline, No JVD Lungs: Normal Respiratory Effort Cardiovascular: Regular Rate, Regular Rhythm GI/Abdominal Exam: Normal Bowel Sounds, Soft, Non-Tender, No Distention (Male) Exam: Deferred Back Exam: Other (supine, intubated) Extremities: Normal Inspection, Normal Capillary Refill Peripheral Pulses: 2+: Radial (L), Radial (R) Skin: Warm Neurological: No New Focal Deficit Psy/Mental Status: Other (sedated) - Patient Data Lab Results Last 24 hrs: Laboratory Results - last 24 hr 10/16/20 10/16/20 10/16/20 Range/Units 08:00 10:04 11:05 D-Dimer, Quantitative (0.19-0.50) mg/L Puncture Site Lt radial Lt radial ABG pH 7.27 L 7.28 L (7.35-7.45) ABG pCO2 54.1 H 55.3 H (35.0-45.0) mmHg ABG pO2 76.0 L 84.0 (80.0-100.0) mmHg ABG HCO3 23.9 25.0 (22.0-26.0) meq/L ABG O2 Saturation 93.5 L 95.7 L (96.0-97.0) % ABG Base Excess -3.4 L -2.3 L (-2-2.0) Micah Test Positive Positive A-a Gradient 284 274 mmHg O2 Delivery Device Ventilator Ventilator Oxygen Flow Rate 0.0 0.0 FiO2 60.00 60.00 (21.00-100.00) % Tidal Volume 600.0 600.0 cc PEEP 5.0 10.0 cmH20 Sodium (136-145) mEq/L Potassium (3.5-5.1) mEq/L Chloride (98-107) mEq/L Carbon Dioxide (21-32) mEq/L Anion Gap (5-15) BUN (7-18) mg/dL Creatinine (0.7-1.3) mg/dL Est Cr Clr Drug Dosing mL/min Estimated GFR (MDRD) (>60) mL/min BUN/Creatinine Ratio (14-18) Glucose (74-106) mg/dL Lactic Acid (0.4-2.0) mmol/L Calcium (8.5-10.1) mg/dL Magnesium (1.8-2.4) mg/dl C-Reactive Protein (<1.0) mg/dL NT-Pro-B Natriuret Pep (0-125) pg/mL SARS-CoV-2 RNA (KAREN) Negative (NEGATIVE) 10/16/20 10/16/20 10/16/20 Range/Units 12:10 14:08 14:08 D-Dimer, Quantitative (0.19-0.50) mg/L Puncture Site Lt radial ABG pH 7.23 L (7.35-7.45) ABG pCO2 59.8 H (35.0-45.0) mmHg ABG pO2 134.0 H (80.0-100.0) mmHg ABG HCO3 24.4 (22.0-26.0) meq/L ABG O2 Saturation 98.8 H (96.0-97.0) % ABG Base Excess -3.9 L (-2-2.0) Micah Test Positive A-a Gradient 361 mmHg O2 Delivery Device Ventilator Oxygen Flow Rate 0.0 FiO2 80.00 (21.00-100.00) % Tidal Volume 550.0 cc PEEP 14.0 cmH20 Sodium 141 (136-145) mEq/L Potassium 5.3 H (3.5-5.1) mEq/L Chloride 105 (98-107) mEq/L Carbon Dioxide 25 (21-32) mEq/L Anion Gap 16.3 H (5-15) BUN 35 H (7-18) mg/dL Creatinine 2.0 H (0.7-1.3) mg/dL Est Cr Clr Drug Dosing 58.20 mL/min Estimated GFR (MDRD) 39 (>60) mL/min BUN/Creatinine Ratio 17.5 (14-18) Glucose 172 H (74-106) mg/dL Lactic Acid 2.8 H* (0.4-2.0) mmol/L Calcium 9.0 (8.5-10.1) mg/dL Magnesium (1.8-2.4) mg/dl C-Reactive Protein (<1.0) mg/dL NT-Pro-B Natriuret Pep (0-125) pg/mL SARS-CoV-2 RNA (KAREN) (NEGATIVE) 10/16/20 10/16/20 10/16/20 Range/Units 14:08 15:13 16:30 D-Dimer, Quantitative 9.17 H (0.19-0.50) mg/L Puncture Site Rt radial ABG pH 7.31 L (7.35-7.45) ABG pCO2 50.8 H (35.0-45.0) mmHg ABG pO2 93.0 (80.0-100.0) mmHg ABG HCO3 24.7 (22.0-26.0) meq/L ABG O2 Saturation 96.5 (96.0-97.0) % ABG Base Excess -1.8 (-2-2.0) Micah Test Positive A-a Gradient 272 mmHg O2 Delivery Device Ventilator Oxygen Flow Rate 0.0 FiO2 60.00 (21.00-100.00) % Tidal Volume 550.0 cc PEEP 14.0 cmH20 Sodium (136-145) mEq/L Potassium 5.4 H (3.5-5.1) mEq/L Chloride (98-107) mEq/L Carbon Dioxide (21-32) mEq/L Anion Gap (5-15) BUN (7-18) mg/dL Creatinine (0.7-1.3) mg/dL Est Cr Clr Drug Dosing mL/min Estimated GFR (MDRD) (>60) mL/min BUN/Creatinine Ratio (14-18) Glucose (74-106) mg/dL Lactic Acid (0.4-2.0) mmol/L Calcium (8.5-10.1) mg/dL Magnesium (1.8-2.4) mg/dl C-Reactive Protein (<1.0) mg/dL NT-Pro-B Natriuret Pep (0-125) pg/mL SARS-CoV-2 RNA (KAREN) (NEGATIVE) 10/16/20 10/17/20 10/17/20 Range/Units 17:00 04:50 04:50 D-Dimer, Quantitative (0.19-0.50) mg/L Puncture Site ABG pH (7.35-7.45) ABG pCO2 (35.0-45.0) mmHg ABG pO2 (80.0-100.0) mmHg ABG HCO3 (22.0-26.0) meq/L ABG O2 Saturation (96.0-97.0) % ABG Base Excess (-2-2.0) Micah Test A-a Gradient mmHg O2 Delivery Device Oxygen Flow Rate FiO2 (21.00-100.00) % Tidal Volume cc PEEP cmH20 Sodium (136-145) mEq/L Potassium (3.5-5.1) mEq/L Chloride (98-107) mEq/L Carbon Dioxide (21-32) mEq/L Anion Gap (5-15) BUN (7-18) mg/dL Creatinine (0.7-1.3) mg/dL Est Cr Clr Drug Dosing mL/min Estimated GFR (MDRD) (>60) mL/min BUN/Creatinine Ratio (14-18) Glucose (74-106) mg/dL Lactic Acid 2.2 H* (0.4-2.0) mmol/L Calcium (8.5-10.1) mg/dL Magnesium 2.8 H (1.8-2.4) mg/dl C-Reactive Protein 3.1 H* (<1.0) mg/dL NT-Pro-B Natriuret Pep 110 (0-125) pg/mL SARS-CoV-2 RNA (KAREN) (NEGATIVE) 10/17/20 10/17/20 10/17/20 Range/Units 04:50 04:50 06:35 D-Dimer, Quantitative (0.19-0.50) mg/L Puncture Site Rt radial ABG pH 7.35 (7.35-7.45) ABG pCO2 51.7 H (35.0-45.0) mmHg ABG pO2 163.0 H* (80.0-100.0) mmHg ABG HCO3 27.9 H (22.0-26.0) meq/L ABG O2 Saturation 99.1 H (96.0-97.0) % ABG Base Excess 1.8 (-2-2.0) Micah Test A-a Gradient 201 mmHg O2 Delivery Device Ventilator Oxygen Flow Rate FiO2 60.00 (21.00-100.00) % Tidal Volume cc PEEP 14.0 cmH20 Sodium 143 (136-145) mEq/L Potassium 5.0 (3.5-5.1) mEq/L Chloride 108 H (98-107) mEq/L Carbon Dioxide 29 (21-32) mEq/L Anion Gap 11.0 (5-15) BUN 28 H (7-18) mg/dL Creatinine 1.2 (0.7-1.3) mg/dL Est Cr Clr Drug Dosing 97.00 mL/min Estimated GFR (MDRD) > 60 (>60) mL/min BUN/Creatinine Ratio 23.3 H (14-18) Glucose 154 H (74-106) mg/dL Lactic Acid 1.6 (0.4-2.0) mmol/L Calcium 8.7 (8.5-10.1) mg/dL Magnesium (1.8-2.4) mg/dl C-Reactive Protein (<1.0) mg/dL NT-Pro-B Natriuret Pep (0-125) pg/mL SARS-CoV-2 RNA (KAREN) (NEGATIVE) Result Diagrams: 10/16/20 05:25 10/17/20 04:50 Eliazar Results Last 24 hrs: Microbiology 10/14/20 19:39 Aerobic Blood Culture - Preliminary Blood - Venous NO GROWTH AFTER 2 DAYS Anaerobic Blood Culture - Preliminary NO GROWTH AFTER 2 DAYS 10/14/20 19:30 Aerobic Blood Culture - Preliminary Blood - Venous - Lab Draw NO GROWTH AFTER 2 DAYS Anaerobic Blood Culture - Preliminary NO GROWTH AFTER 2 DAYS 10/15/20 15:43 Streptococcus pneumoniae Antigen (M - Final Urine 10/16/20 10:20 Gram Stain - Final Sputum - Induced Sepsis Event Note - Evaluation Sepsis Screening Result: Severe Sepsis Risk - Focused Exam Vital Signs: Vital Signs Temp Resp BP BP Pulse Ox Pulse Ox 10/17/20 07:32 36.3 C 18 135/72 100 10/17/20 07:01 26 H 131/73 100 10/17/20 07:00 26 H 100 10/17/20 06:41 26 H 130/76 100 10/17/20 06:40 26 H 100 10/17/20 06:30 26 H 100 10/17/20 06:21 26 H 134/72 100 10/17/20 06:20 26 H 100 10/17/20 06:01 26 H 132/71 100 10/17/20 06:00 26 H 100 10/17/20 05:41 26 H 139/68 100 10/17/20 05:40 26 H 100 10/17/20 05:21 25 H 138/71 98 10/17/20 05:20 26 H 99 10/17/20 05:01 26 H 133/72 98 10/17/20 05:00 36.4 C 26 H 98 10/17/20 04:41 26 H 130/73 99 10/17/20 04:40 26 H 99 10/17/20 04:32 26 H 10/17/20 04:31 98 10/17/20 04:21 26 H 126/72 97 10/17/20 04:20 26 H 97 10/17/20 04:01 26 H 132/73 98 10/17/20 04:00 36.0 C L 26 H 99 10/17/20 03:41 26 H 131/76 98 10/17/20 03:40 26 H 98 10/17/20 03:21 26 H 130/72 98 10/17/20 03:20 26 H 98 10/17/20 03:01 26 H 127/73 98 10/17/20 03:00 26 H 98 10/17/20 02:41 26 H 128/74 98 10/17/20 02:40 26 H 99 10/17/20 02:30 26 H 98 10/17/20 02:21 26 H 128/74 98 10/17/20 02:20 26 H 98 10/17/20 02:01 26 H 132/75 98 10/17/20 02:00 26 H 98 10/17/20 01:41 24 H 125/70 98 10/17/20 01:40 26 H 98 10/17/20 01:21 26 H 127/70 98 10/17/20 01:20 26 H 98 10/17/20 01:01 26 H 126/72 97 10/17/20 01:00 26 H 98 10/17/20 00:41 26 H 127/72 98 10/17/20 00:40 26 H 98 10/17/20 00:21 26 H 128/70 98 10/17/20 00:20 26 H 98 10/17/20 00:03 98 10/17/20 00:01 26 H 125/67 98 98 10/17/20 00:00 36.0 C L 26 H 97 10/16/20 23:41 26 H 119/69 97 10/16/20 23:40 26 H 97 10/16/20 23:21 26 H 121/68 98 10/16/20 23:20 26 H 98 10/16/20 23:01 26 H 121/65 98 10/16/20 23:00 26 H 98 10/16/20 22:41 26 H 123/65 98 10/16/20 22:40 26 H 98 10/16/20 22:20 26 H 123/65 97 10/16/20 22:19 26 H 97 10/16/20 22:01 26 H 98 10/16/20 22:00 24 H 121/68 98 10/16/20 21:59 26 H 98 10/16/20 21:58 26 H 98 10/16/20 21:40 26 H 123/67 98 10/16/20 21:39 26 H 98 10/16/20 21:20 26 H 124/64 98 10/16/20 21:19 26 H 98 10/16/20 21:05 26 H 97 10/16/20 21:01 26 H 97 10/16/20 21:00 26 H 122/63 97 10/16/20 20:59 26 H 97 10/16/20 20:40 26 H 122/65 98 10/16/20 20:39 26 H 98 10/16/20 20:20 26 H 123/68 97 10/16/20 20:19 26 H 97 10/16/20 20:01 21 H 96 10/16/20 20:00 36.2 C 26 H 112/58 L 96 10/16/20 19:59 26 H 96 10/16/20 19:56 26 H 96 - Problem List Review Problem List Initiated/Reviewed/Updated: Yes - My Orders Last 24 Hours: My Active Orders 10/16/20 07:50 Albuterol [Proventil Neb Soln] 2.5 mg NEB Q4H PRN 10/16/20 09:00 Budesonide [Pulmicort] 1 mg NEB BID 10/16/20 09:28 Bedrest [RC] ASDIRECTED 10/16/20 10:00 Initiate/Renew Non-Violent Restraints (All Ages) Q24H Nrsg Assess Restraint Init/Mon [RC] Q2HR 10/16/20 10:20 CULTURE SPUTUM + SMEAR [RM] Routine 10/16/20 11:30 Azithromycin [Zithromax] 500 mg Sodium Chloride 0.9% [Normal Saline (AdvBag)] 250 ml IV Q24H 10/16/20 12:00 Albuterol/Ipratropium [DuoNeb 3.0-0.5 MG/3 ML] 3 ml NEB Q4H 10/16/20 12:30 cefTRIAXone [Rocephin] 2 gm Sodium Chloride 0.9% [Normal Saline] 100 ml IV Q24H 10/16/20 13:29 Chest 1V Frontal [CR] Routine 10/16/20 17:06 Chest 1V-Tube Placement Chk NC [CR] Routine 10/16/20 18:00 dexAMETHasone [Decadron] 6 mg IVPUSH Q24H 10/16/20 21:00 Enoxaparin [Lovenox] 100 mg SUBCUT BID Famotidine [Pepcid] 20 mg IVPUSH BEDTIME 10/17/20 10:00 Initiate/Renew Non-Violent Restraints (All Ages) Q24H 10/18/20 05:00 CRP [C-REACTIVE PROTEIN] [CHEM] DAILY LACTIC ACID [CHEM] DAILY MAGNESIUM [CHEM] DAILY 10/18/20 05:16 BMP [BASIC METABOLIC PANEL,BMP] [CHEM] DAILY 10/18/20 06:00 BLOOD GAS ARTERIAL [BG] DAILY 10/19/20 05:00 CRP [C-REACTIVE PROTEIN] [CHEM] DAILY LACTIC ACID [CHEM] DAILY 10/19/20 05:16 BMP [BASIC METABOLIC PANEL,BMP] [CHEM] DAILY 10/20/20 05:00 LACTIC ACID [CHEM] DAILY 10/20/20 05:16 BMP [BASIC METABOLIC PANEL,BMP] [CHEM] DAILY 10/21/20 05:00 LACTIC ACID [CHEM] DAILY 10/21/20 05:16 BMP [BASIC METABOLIC PANEL,BMP] [CHEM] DAILY - Plan Plan:: 30 year old male with acute hypoxemic respiratory distress, presumptively civered for atypical pneumonia with an ATB. the patient tested positive for marijuana and methamphetamine. Stated that the marijuana had to have been laced, he denied active use of methamphetamine. Impression: Acute hypoxemic respiratory distress-subsequent failure, S/P intubation after failed BiPAP Methamphetamine positive, query inhalation eg "Gerson" cf IDU Hypertensive Methamphetamine withdrawal Chronic Obesity Polysubstance abuse Asthma Plan: HTN meds: scheduled/prn hydralazine; Vasotec; Lopressor Doxycycline 100 mg Q12 H-stopped; started Zithromax 500 mg, Rocephin 2 GM daily respectively. Nebs: Duonebs/Albuterol, scheduled/prn Steroid change to Dexamethasone 6 mg IV daily for 10 days or as appropriate. Sedation needed d/t MV, avoid agitation with withdrawal from methamphetamine. DVT prophylaxis, Lovernox 40 mg Q 12 H-->change to 95 mg SQ every 12 hours NPO except meds PCXR scheduled or prn pending clinical course MV, adjust VT/PEEP/FiO2 per response, keep O2 sat>92% AM labs re: sepsis/COVID-19 COVID-19 precaution s/p intubation
[2020-10-17] MEDS: Enoxaparin 100 MG/1 ML Syringe SUBCUT SCH ×2 (08:19→20:50)
[2020-10-17] MEDS: Budesonide 0.5 MG/2 ML Neb Susp NEB SCH ×2 (08:28→20:52)
--- NOTE | 2020-10-17 10:12 | CR ---
Chest: Portable view of the chest was obtained. Comparison: Prior chest x-ray performed on the same day (6:53 AM). Stable endotracheal tube is seen. Endotracheal tube has been withdrawn to the proximal level of clavicles. Nasogastric tube is stable in position with tip within the stomach. Lungs are clear with no acute parenchymal change. No acute osseous finding is seen. Stable plate and screws are noted within the distal clavicle on the right side. Impression: 1. Slight withdrawal of the endotracheal tube to the upper level of the clavicles. 2. Nothing acute is otherwise seen. Diagnostic code #2
--- NOTE | 2020-10-17 10:14 | CR ---
Chest: Portable supine view of the chest was obtained. Comparison: Prior chest x-ray performed earlier on the same day (1:17 PM). Heart size and mediastinum are normal. Nasogastric tube is seen with tip lying within the proximal stomach. Endotracheal tube is now seen with tip lying at the lower level of clavicles which appears to have been which has slightly moved from previous exam. Lungs are clear with no acute parenchymal change. No acute osseous finding is seen. Previous surgery within the right acromioclavicular joint is seen. Impression: 1. Nasogastric tube and endotracheal tube which appear within normal limits in position. 2. Nothing acute is otherwise seen on portable supine chest x-ray. Diagnostic code #3
[2020-10-17] MEDS: Azithromycin 500 MG in Sodium Chloride 0.9% 250 ML IV SCH (11:03)
--- NOTE | 2020-10-17 11:54 | US ---
Right upper extremity venous ultrasound: Duplex and color flow Doppler imaging was obtained of the right internal jugular, subclavian, axillary, brachial, basilic, radial and ulnar veins. Left common carotid vein was also evaluated. Subcutaneous edema is seen within the right forearm. Findings: Veins show normal phasic flow, augmentation and compression. Impression: 1. Subcutaneous edema. 2. No venous abnormality is appreciated. Diagnostic code #2
[2020-10-17] MEDS: cefTRIAXone 2 GM in Sodium Chloride 0.9% 100 ML IV SCH (12:32)
[2020-10-17] MEDS: Dexamethasone 4 MG/ML SDV IVPUSH SCH (17:33)
[2020-10-17] MEDS: Famotidine 20 MG/2 ML SDV IVPUSH SCH (20:50)
[2020-10-18] MEDS: Lactated Ringers 1,000 ML IV SCH ×3 (02:51→22:42)
[2020-10-18] MEDS: propofoL 100 ML IV SCH ×6 (02:55→22:40)
[2020-10-18] MEDS: Albuterol/Ipratropium 3.0-0.5 MG/3 ML Neb Soln NEB SCH ×5 (04:22→20:13)
[2020-10-18] MEDS: Budesonide 0.5 MG/2 ML Neb Susp NEB SCH ×3 (07:45→20:13)
[2020-10-18] MEDS: Enoxaparin 100 MG/1 ML Syringe SUBCUT SCH (08:35)
--- NOTE | 2020-10-18 09:27 | PCM.PN ---
- General Info Date of Service: 10/18/20 Admission Dx/Problem (Free Text): Admission Diagnosis/Problem Admission Diagnosis/Problem Asthma with acute exacerbation Subjective Update: Patient had an uneventful night. We were planning on extubating today, but as we weaned his propofol patient became agitated, bit down hard on the suction, and we were unable to wean him secondary to combative and destructive behavior. We spoke with his brother Silvio who states that whenever he comes out of anesthesia from intubation, last time was a shoulder and then a knee surgery, this happens. He states as long as he or his sister is there in the room he will focus on the sibling and they can calm him down for extubation. Also, patient has developed a dark brown/black discharge from his OG. Patient is on therapeutic dose Lovenox secondary to elevated D-dimer concern for clotting. Patient is on Pepcid IV at night for GI prophylaxis. Of note his CT angiogram of the chest was negative and ultrasound of the upper extremity secondary to swelling was also negative for clot. Functional Status: Reports: Other (Intubated) - Patient Data Vitals - Most Recent: Last Vital Signs Temp 97.6 F 10/18/20 08:00 Pulse 65 10/18/20 08:00 Resp 20 10/18/20 08:01 BP 133/88 10/18/20 08:01 Pulse Ox 96 10/18/20 08:01 Weight - Most Recent: 223 lb I&O - Last 24 Hours: Intake & Output 10/17/20 10/18/20 10/18/20 22:59 06:59 14:59 Intake Total 1589 1330 Output Total 1280 950 500 Balance 309 380 -500 Imaging Impressions - Last 24 Hours: Chest x-ray shows no acute changes. ET tube in place. Lab Results Last 24 Hours: Laboratory Results - last 24 hr 10/17/20 10/17/20 10/18/20 Range/Units 06:35 15:40 05:30 WBC (4.23-9.07) K/mm3 RBC (4.63-6.08) M/mm3 Hgb (13.7-17.5) gm/dl Hct (40.1-51.0) % MCV (79.0-92.2) fl MCH (25.7-32.2) pg MCHC (32.2-35.5) g/dl RDW Std Deviation (35.1-43.9) fL Plt Count (163-337) K/mm3 MPV (9.4-12.3) fl D-Dimer, Quantitative (0.19-0.50) mg/L Puncture Site ABG pH (7.35-7.45) ABG pCO2 (35.0-45.0) mmHg ABG pO2 (80.0-100.0) mmHg ABG HCO3 (22.0-26.0) meq/L ABG O2 Saturation (96.0-97.0) % ABG Base Excess (-2-2.0) Micah Test Positive A-a Gradient mmHg O2 Delivery Device FiO2 (21.00-100.00) % Tidal Volume cc PEEP cmH20 Sodium 146 H (136-145) mEq/L Potassium 4.3 (3.5-5.1) mEq/L Chloride 108 H (98-107) mEq/L Carbon Dioxide 32 (21-32) mEq/L Anion Gap 10.3 (5-15) BUN 25 H (7-18) mg/dL Creatinine 1.1 (0.7-1.3) mg/dL Est Cr Clr Drug Dosing 105.82 mL/min Estimated GFR (MDRD) > 60 (>60) mL/min BUN/Creatinine Ratio 22.7 H (14-18) Glucose 121 H (74-106) mg/dL Lactic Acid (0.4-2.0) mmol/L Calcium 8.6 (8.5-10.1) mg/dL Magnesium 2.5 H (1.8-2.4) mg/dl C-Reactive Protein 2.8 H* (<1.0) mg/dL 10/18/20 10/18/20 10/18/20 Range/Units 05:30 05:30 05:30 WBC 9.25 H (4.23-9.07) K/mm3 RBC 4.38 L (4.63-6.08) M/mm3 Hgb 13.2 L (13.7-17.5) gm/dl Hct 42.5 (40.1-51.0) % MCV 97.0 H D (79.0-92.2) fl MCH 30.1 (25.7-32.2) pg MCHC 31.1 L (32.2-35.5) g/dl RDW Std Deviation 44.0 H (35.1-43.9) fL Plt Count 213 (163-337) K/mm3 MPV 10.6 (9.4-12.3) fl D-Dimer, Quantitative (0.19-0.50) mg/L Puncture Site ABG pH (7.35-7.45) ABG pCO2 (35.0-45.0) mmHg ABG pO2 (80.0-100.0) mmHg ABG HCO3 (22.0-26.0) meq/L ABG O2 Saturation (96.0-97.0) % ABG Base Excess (-2-2.0) Micah Test A-a Gradient mmHg O2 Delivery Device FiO2 (21.00-100.00) % Tidal Volume cc PEEP cmH20 Sodium 146 H (136-145) mEq/L Potassium 4.5 (3.5-5.1) mEq/L Chloride 108 H (98-107) mEq/L Carbon Dioxide 32 (21-32) mEq/L Anion Gap 10.5 (5-15) BUN 24 H (7-18) mg/dL Creatinine 0.9 (0.7-1.3) mg/dL Est Cr Clr Drug Dosing 129.33 mL/min Estimated GFR (MDRD) > 60 (>60) mL/min BUN/Creatinine Ratio 26.7 H (14-18) Glucose 115 H (74-106) mg/dL Lactic Acid 0.8 (0.4-2.0) mmol/L Calcium 8.3 L (8.5-10.1) mg/dL Magnesium (1.8-2.4) mg/dl C-Reactive Protein (<1.0) mg/dL 10/18/20 10/18/20 Range/Units 06:05 07:52 WBC (4.23-9.07) K/mm3 RBC (4.63-6.08) M/mm3 Hgb (13.7-17.5) gm/dl Hct (40.1-51.0) % MCV (79.0-92.2) fl MCH (25.7-32.2) pg MCHC (32.2-35.5) g/dl RDW Std Deviation (35.1-43.9) fL Plt Count (163-337) K/mm3 MPV (9.4-12.3) fl D-Dimer, Quantitative 6.98 H (0.19-0.50) mg/L Puncture Site Rt radial ABG pH 7.41 (7.35-7.45) ABG pCO2 50.1 H (35.0-45.0) mmHg ABG pO2 81.0 (80.0-100.0) mmHg ABG HCO3 30.9 H (22.0-26.0) meq/L ABG O2 Saturation 95.7 L (96.0-97.0) % ABG Base Excess 5.6 H (-2-2.0) Micah Test A-a Gradient 142 mmHg O2 Delivery Device Ventilator FiO2 40.00 (21.00-100.00) % Tidal Volume 550.0 cc PEEP 8.0 cmH20 Sodium (136-145) mEq/L Potassium (3.5-5.1) mEq/L Chloride (98-107) mEq/L Carbon Dioxide (21-32) mEq/L Anion Gap (5-15) BUN (7-18) mg/dL Creatinine (0.7-1.3) mg/dL Est Cr Clr Drug Dosing mL/min Estimated GFR (MDRD) (>60) mL/min BUN/Creatinine Ratio (14-18) Glucose (74-106) mg/dL Lactic Acid (0.4-2.0) mmol/L Calcium (8.5-10.1) mg/dL Magnesium (1.8-2.4) mg/dl C-Reactive Protein (<1.0) mg/dL Eliazar Results Last 24 Hours: Microbiology 10/14/20 19:39 Aerobic Blood Culture - Preliminary Blood - Venous NO GROWTH AFTER 3 DAYS Anaerobic Blood Culture - Preliminary NO GROWTH AFTER 3 DAYS 10/14/20 19:30 Aerobic Blood Culture - Preliminary Blood - Venous - Lab Draw NO GROWTH AFTER 3 DAYS Anaerobic Blood Culture - Preliminary NO GROWTH AFTER 3 DAYS 10/16/20 10:20 Gram Stain - Final Sputum - Induced Sputum Culture - Preliminary Med Orders - Current: Current Medications Acetaminophen (Tylenol) 650 mg PO Q6H PRN PRN Reason: Pain/Fever Albuterol (Proventil Neb Soln) 2.5 mg NEB Q4H PRN PRN Reason: Shortness of Breath Albuterol/Ipratropium (Duoneb 3.0-0.5 Mg/3 Ml) 3 ml NEB Q4H YANI Last Admin: 10/18/20 07:45 Dose: 3 ml Documented by: Budesonide (Pulmicort) 1 mg NEB BID YANI Last Admin: 10/18/20 08:45 Dose: Not Given Documented by: Calcium Chloride (Calcium Chloride 10%) 1 gm IVPUSH Q4H PRN PRN Reason: K>6 Last Admin: 10/15/20 14:44 Dose: 1 gm Documented by: Dexamethasone (Decadron) 6 mg IVPUSH Q24H YANI Last Admin: 10/17/20 17:33 Dose: 6 mg Documented by: Dextrose/Water (Dextrose 50% In Water) 50 ml IVPUSH ASDIRECTED [facility] Enoxaparin Sodium (Lovenox) 100 mg SUBCUT BID [facility] Last Admin: 10/18/20 08:35 Dose: 100 mg Documented by: Famotidine (Pepcid) 20 mg IVPUSH BEDTIME YANI Last Admin: 10/17/20 20:50 Dose: 20 mg Documented by: Haloperidol Lactate (Haldol) 2 mg IVPUSH Q4H PRN PRN Reason: Withdrawal Symptoms Hydralazine HCl (Apresoline) 10 mg IVPUSH Q8H PRN PRN Reason: Hypertension dexmedeTOMIDine in dextrose 5% (400 mcg/ Premix) 100 mls @ 0 mls/hr IV TITRATE YANI; Protocol Last Admin: 10/18/20 08:31 Dose: 14.3 mls/hr Documented by: Propofol (Diprivan 100 Ml) 100 mls @ 2.864 mls/hr IV TITRATE YANI; Protocol Last Admin: 10/18/20 07:43 Dose: 35 mcg/kg/min, 20.051 mls/hr Documented by: Lorazepam 40 mg/ Dextrose/ (Water) 40 mls @ 1 mls/hr IV TITRATE YANI; Protocol Last Admin: 10/16/20 09:08 Dose: 0.5 mg/hr, 0.5 mls/hr Documented by: Lactated Ringer's (Ringers, Lactated) 1,000 mls @ 75 mls/hr IV ASDIRECTED YANI Last Admin: 10/18/20 02:51 Dose: 75 mls/hr Documented by: Azithromycin 500 mg/ Sodium (Chloride) 250 mls @ 250 mls/hr IV Q24H YANI Last Admin: 10/17/20 11:03 Dose: 250 mls/hr Documented by: Ceftriaxone Sodium 2 gm/ (Sodium Chloride) 100 mls @ 200 mls/hr IV Q24H YANI Last Admin: 10/17/20 12:32 Dose: 200 mls/hr Documented by: Lorazepam (Ativan) 0 mg IVPUSH Q1H PRN; Protocol PRN Reason: Withdrawal Symptoms Last Admin: 10/15/20 08:53 Dose: 1 mg Documented by: Lorazepam (Ativan) 1 mg IVPUSH Q4H PRN PRN Reason: Anxiety Metoprolol Tartrate (Lopressor) 5 mg IVPUSH Q4H PRN PRN Reason: heart rate >110 Last Admin: 10/16/20 12:59 Dose: 5 mg Documented by: Sodium Chloride (Saline Flush) 10 ml FLUSH ASDIRECTED PRN PRN Reason: Keep Vein Open Last Admin: 10/14/20 19:00 Dose: 10 ml Documented by: Discontinued Medications Acetaminophen (Tylenol) 650 mg PO NOW ONE Stop: 10/14/20 21:36 Last Admin: 10/14/20 22:23 Dose: Not Given Documented by: Albuterol (Proventil Neb Soln) Confirm Administered Dose 2.5 mg .ROUTE .STK-MED ONE Stop: 10/14/20 18:51 Last Admin: 10/14/20 18:57 Dose: Not Given Documented by: Albuterol (Proventil Neb Soln) 2.5 mg NEB ONETIME ONE Stop: 10/14/20 18:53 Last Admin: 10/14/20 18:55 Dose: 2.5 mg Documented by: Albuterol (Proventil Neb Soln) 2.5 mg NEB Q4HRRT YANI Last Admin: 10/16/20 05:34 Dose: 2.5 mg Documented by: Albuterol/Ipratropium (Duoneb 3.0-0.5 Mg/3 Ml) 3 ml NEB ONETIME ONE Stop: 10/14/20 19:14 Last Admin: 10/14/20 19:23 Dose: 3 ml Documented by: Albuterol/Ipratropium (Duoneb 3.0-0.5 Mg/3 Ml) 3 ml NEB STAT STA Stop: 10/15/20 05:17 Last Admin: 10/15/20 05:26 Dose: 3 ml Documented by: Albuterol/Ipratropium (Duoneb 3.0-0.5 Mg/3 Ml) 3 ml NEB STAT STA Stop: 10/15/20 06:36 Last Admin: 10/15/20 06:44 Dose: 3 ml Documented by: Albuterol/Ipratropium (Duoneb 3.0-0.5 Mg/3 Ml) 3 ml NEB Q6HRRT YANI Last Admin: 10/16/20 08:44 Dose: 3 ml Documented by: Budesonide (Pulmicort) 1 mg NEB BIDRT YANI Dexamethasone (Decadron) 6 mg IVPUSH Q24H YANI Dexmedetomidine HCl (Precedex) 0 mcg IV CONTINUOUS YANI; Protocol Enalaprilat (Vasotec Iv) 0.625 mg IVPUSH Q6H PRN PRN Reason: Hypertension Last Admin: 10/15/20 11:22 Dose: 0.625 mg Documented by: Enalaprilat (Vasotec Iv) 1.25 mg IVPUSH Q6H PRN PRN Reason: Hypertension Enoxaparin Sodium (Lovenox) 40 mg SUBCUT Q12H [facility] Last Admin: 10/16/20 02:13 Dose: 40 mg Documented by: Enoxaparin Sodium (Lovenox) 60 mg SUBCUT ONETIME ONE Stop: 10/16/20 11:46 Last Admin: 10/16/20 11:46 Dose: 60 mg Documented by: Famotidine (Pepcid) 20 mg IVPUSH ONETIME ONE Stop: 10/15/20 20:50 Last Admin: 10/15/20 21:04 Dose: 20 mg Documented by: Haloperidol Lactate (Haldol) Confirm Administered Dose 5 mg .ROUTE .STK-MED ONE Stop: 10/15/20 09:41 Last Admin: 10/15/20 09:52 Dose: Not Given Documented by: Haloperidol Lactate (Haldol) 1 mg IVPUSH ONETIME ONE Stop: 10/15/20 09:45 Last Admin: 10/15/20 12:09 Dose: 1 mg Documented by: Haloperidol Lactate (Haldol) 1 mg IVPUSH ONETIME ONE Stop: 10/15/20 09:47 Last Admin: 10/15/20 09:46 Dose: 1 mg Documented by: Haloperidol Lactate (Haldol) Confirm Administered Dose 5 mg .ROUTE .STK-MED ONE Stop: 10/15/20 09:59 Last Admin: 10/15/20 12:17 Dose: Not Given Documented by: Hydralazine HCl (Apresoline) 10 mg IVPUSH Q2H PRN PRN Reason: Hypertension Last Admin: 10/15/20 09:28 Dose: 10 mg Documented by: Hydralazine HCl (Apresoline) Confirm Administered Dose 20 mg .ROUTE .STK-MED ONE Stop: 10/15/20 10:48 Last Admin: 10/15/20 11:50 Dose: Not Given Documented by: Hydralazine HCl (Apresoline) 20 mg IVPUSH Q8H [facility] Last Admin: 10/15/20 13:52 Dose: Not Given Documented by: Hydralazine HCl (Apresoline) 10 mg IVPUSH ONETIME ONE Stop: 10/15/20 10:50 Last Admin: 10/15/20 10:49 Dose: 10 mg Documented by: Hydralazine HCl (Apresoline) 20 mg IVPUSH Q8H [facility] Last Admin: 10/15/20 15:54 Dose: Not Given Documented by: Hydralazine HCl (Apresoline) 20 mg IVPUSH Q8H PRN PRN Reason: Hypertension Sodium Chloride (Normal Saline) 1,000 mls @ 100 mls/hr IV ASDIRECTED [facility] Last Admin: 10/14/20 19:59 Dose: 100 mls/hr Documented by: Doxycycline Hyclate 100 mg/ (Sodium Chloride) 100 mls @ 100 mls/hr IV Q12H [facility] Last Admin: 10/16/20 08:31 Dose: 100 mls/hr Documented by: Magnesium Sulfate/Dextrose 1 (gm/ Premix) 100 mls @ 100 mls/hr IV ONETIME ONE Stop: 10/15/20 09:57 Last Admin: 10/15/20 09:15 Dose: 100 mls/hr Documented by: Propofol (Diprivan 100 Ml) Confirm Administered Dose 100 mls @ as directed .ROUTE .STK-MED ONE Stop: 10/15/20 10:04 Last Admin: 10/15/20 12:17 Dose: Not Given Documented by: Dextrose/Sodium Chloride (Dextrose 5%-1/2 Ns) 1,000 mls @ 100 mls/hr IV ASDIRECTED YANI Last Infusion: 10/15/20 17:57 Dose: 100 mls/hr Documented by: Lactated Ringer's (Ringers, Lactated) 1,000 mls @ 125 mls/hr IV ASDIRECTED YANI Stop: 10/16/20 03:01 Last Infusion: 10/16/20 03:00 Dose: 75 mls/hr Documented by: Lactated Ringer's (Ringers, Lactated) Confirm Administered Dose 1,000 mls @ as directed .ROUTE .STK-MED ONE Stop: 10/15/20 20:52 Last Admin: 10/15/20 20:58 Dose: Not Given Documented by: Lactated Ringer's (Ringers, Lactated) 250 mls @ 999 mls/hr IV ONETIME ONE Stop: 10/15/20 22:00 Last Admin: 10/15/20 21:45 Dose: 999 mls/hr Documented by: Lactated Ringer's (Ringers, Lactated) 500 mls @ 999 mls/hr IV ONETIME ONE Stop: 10/16/20 18:33 Last Admin: 10/16/20 18:21 Dose: 999 mls/hr Documented by: Insulin Human Regular (Humulin R) 5 unit IV ONETIME ONE Stop: 10/15/20 13:18 Last Admin: 10/15/20 14:01 Dose: 5 unit Documented by: Lorazepam (Ativan) 0.5 mg IVPUSH ONETIME ONE Stop: 10/14/20 18:54 Last Admin: 10/14/20 18:57 Dose: 0.5 mg Documented by: Lorazepam (Ativan) Confirm Administered Dose 2 mg .ROUTE .STK-MED ONE Stop: 10/14/20 18:54 Last Admin: 10/14/20 18:57 Dose: Not Given Documented by: Lorazepam (Ativan) 1 mg IVPUSH ONETIME STA Stop: 10/15/20 01:44 Last Admin: 10/15/20 02:01 Dose: 1 mg Documented by: Lorazepam (Ativan) 1 mg IVPUSH STAT STA Stop: 10/15/20 05:15 Last Admin: 10/15/20 05:25 Dose: 1 mg Documented by: Lorazepam (Ativan) Confirm Administered Dose 2 mg .ROUTE .STK-MED ONE Stop: 10/15/20 05:20 Last Admin: 10/15/20 05:26 Dose: Not Given Documented by: Lorazepam (Ativan) 1 mg IVPUSH STAT STA Stop: 10/15/20 06:35 Last Admin: 10/15/20 06:52 Dose: 1 mg Documented by: Lorazepam (Ativan) 2 mg IVPUSH ONETIME ONE Stop: 10/15/20 12:13 Last Admin: 10/15/20 12:15 Dose: 2 mg Documented by: Lorazepam (Ativan) Confirm Administered Dose 2 mg .ROUTE .STK-MED ONE Stop: 10/15/20 12:15 Last Admin: 10/15/20 12:32 Dose: Not Given Documented by: Lorazepam (Ativan) Confirm Administered Dose 2 mg .ROUTE .STK-MED ONE Stop: 10/15/20 12:20 Last Admin: 10/15/20 12:32 Dose: Not Given Documented by: Lorazepam (Ativan) 2 mg IVPUSH NOW STA Stop: 10/15/20 12:21 Last Admin: 10/15/20 12:20 Dose: 2 mg Documented by: Lorazepam (Ativan) 1 mg IVPUSH NOW STA Stop: 10/15/20 13:06 Last Admin: 10/15/20 13:05 Dose: 1 mg Documented by: Methylprednisolone Sodium Succinate (Solu-Medrol) 125 mg IVPUSH ONETIME ONE Stop: 10/14/20 18:54 Last Admin: 10/14/20 18:58 Dose: 125 mg Documented by: Methylprednisolone Sodium Succinate (Solu-Medrol) Confirm Administered Dose 125 mg .ROUTE .STK-MED ONE Stop: 10/14/20 18:54 Last Admin: 10/14/20 18:57 Dose: Not Given Documented by: Methylprednisolone Sodium Succinate (Solu-Medrol) 125 mg IVPUSH Q6H YANI Last Admin: 10/16/20 11:07 Dose: 125 mg Documented by: Midazolam HCl (Versed 1 Mg/Ml) 10 mg .ROUTE .STK-MED ONE Stop: 10/15/20 13:01 Morphine Sulfate (Morphine) 1 mg IVPUSH STAT STA Stop: 10/15/20 05:13 Last Admin: 10/15/20 05:20 Dose: 1 mg Documented by: Morphine Sulfate (Morphine) Confirm Administered Dose 2 mg .ROUTE .STK-MED ONE Stop: 10/15/20 05:19 Last Admin: 10/15/20 05:26 Dose: Not Given Documented by: Morphine Sulfate (Morphine) 1 mg IVPUSH STAT STA Stop: 10/15/20 06:35 Last Admin: 10/15/20 06:51 Dose: 1 mg Documented by: Morphine Sulfate (Morphine) Confirm Administered Dose 2 mg .ROUTE .STK-MED ONE Stop: 10/15/20 08:01 Last Admin: 10/15/20 09:10 Dose: Not Given Documented by: Morphine Sulfate (Morphine) 2 mg IVPUSH ONETIME ONE Stop: 10/15/20 08:05 Last Admin: 10/15/20 08:04 Dose: 2 mg Documented by: Morphine Sulfate (Morphine) 1 mg IVPUSH Q4H PRN PRN Reason: Pain (mild 1-3) Propofol (Diprivan 20 Ml) 200 mg .ROUTE .STK-MED ONE Stop: 10/15/20 13:01 Propofol (Diprivan 20 Ml) 200 mg .ROUTE .STK-MED ONE Stop: 10/15/20 13:01 Rocuronium [place] (Zemuron) 50 mg .ROUTE .STK-MED ONE Stop: 10/15/20 13:01 Rocuronium [place] (Zemuron) 50 mg .ROUTE .STK-MED ONE Stop: 10/15/20 13:01 Sodium Polystyrene Sulfonate (Kayexalate) 45 gm PO Q8H YANI Stop: 10/15/20 22:01 Last Admin: 10/15/20 21:50 Dose: Not Given Documented by: Sodium Polystyrene Sulfonate (Kayexalate) 45 gm PO ONETIME ONE Stop: 10/16/20 19:01 Last Admin: 10/16/20 18:44 Dose: 45 gm Documented by: Succinylcholine Chloride (Quelicin) 200 mg .ROUTE .STK-MED ONE Stop: 10/15/20 13:01 - Exam Quality Assessment: Urine Catheter, Restraints General: Sedated HEENT: Pupils Equal Neck: Supple Lungs: Wheezing Cardiovascular: Regular Rate, Regular Rhythm GI/Abdominal Exam: Normal Bowel Sounds, Soft, No Organomegaly, No Distention, No Abnormal Bruit, No Mass Extremities: Normal Inspection, Normal Range of Motion, No Pedal Edema, Normal Capillary Refill Peripheral Pulses: 2+: Posterior Tibial (L), Posterior Tibial (R), Dorsalis Pedis (L), Dorsalis Pedis (R) Skin: Warm, Dry, Intact - Patient Data Lab Results Last 24 hrs: Laboratory Results - last 24 hr 10/17/20 10/17/20 10/18/20 Range/Units 06:35 15:40 05:30 WBC (4.23-9.07) K/mm3 RBC (4.63-6.08) M/mm3 Hgb (13.7-17.5) gm/dl Hct (40.1-51.0) % MCV (79.0-92.2) fl MCH (25.7-32.2) pg MCHC (32.2-35.5) g/dl RDW Std Deviation (35.1-43.9) fL Plt Count (163-337) K/mm3 MPV (9.4-12.3) fl D-Dimer, Quantitative (0.19-0.50) mg/L Puncture Site ABG pH (7.35-7.45) ABG pCO2 (35.0-45.0) mmHg ABG pO2 (80.0-100.0) mmHg ABG HCO3 (22.0-26.0) meq/L ABG O2 Saturation (96.0-97.0) % ABG Base Excess (-2-2.0) Micah Test Positive A-a Gradient mmHg O2 Delivery Device FiO2 (21.00-100.00) % Tidal Volume cc PEEP cmH20 Sodium 146 H (136-145) mEq/L Potassium 4.3 (3.5-5.1) mEq/L Chloride 108 H (98-107) mEq/L Carbon Dioxide 32 (21-32) mEq/L Anion Gap 10.3 (5-15) BUN 25 H (7-18) mg/dL Creatinine 1.1 (0.7-1.3) mg/dL Est Cr Clr Drug Dosing 105.82 mL/min Estimated GFR (MDRD) > 60 (>60) mL/min BUN/Creatinine Ratio 22.7 H (14-18) Glucose 121 H (74-106) mg/dL Lactic Acid (0.4-2.0) mmol/L Calcium 8.6 (8.5-10.1) mg/dL Magnesium 2.5 H (1.8-2.4) mg/dl C-Reactive Protein 2.8 H* (<1.0) mg/dL 10/18/20 10/18/20 10/18/20 Range/Units 05:30 05:30 05:30 WBC 9.25 H (4.23-9.07) K/mm3 RBC 4.38 L (4.63-6.08) M/mm3 Hgb 13.2 L (13.7-17.5) gm/dl Hct 42.5 (40.1-51.0) % MCV 97.0 H D (79.0-92.2) fl MCH 30.1 (25.7-32.2) pg MCHC 31.1 L (32.2-35.5) g/dl RDW Std Deviation 44.0 H (35.1-43.9) fL Plt Count 213 (163-337) K/mm3 MPV 10.6 (9.4-12.3) fl D-Dimer, Quantitative (0.19-0.50) mg/L Puncture Site ABG pH (7.35-7.45) ABG pCO2 (35.0-45.0) mmHg ABG pO2 (80.0-100.0) mmHg ABG HCO3 (22.0-26.0) meq/L ABG O2 Saturation (96.0-97.0) % ABG Base Excess (-2-2.0) Micah Test A-a Gradient mmHg O2 Delivery Device FiO2 (21.00-100.00) % Tidal Volume cc PEEP cmH20 Sodium 146 H (136-145) mEq/L Potassium 4.5 (3.5-5.1) mEq/L Chloride 108 H (98-107) mEq/L Carbon Dioxide 32 (21-32) mEq/L Anion Gap 10.5 (5-15) BUN 24 H (7-18) mg/dL Creatinine 0.9 (0.7-1.3) mg/dL Est Cr Clr Drug Dosing 129.33 mL/min Estimated GFR (MDRD) > 60 (>60) mL/min BUN/Creatinine Ratio 26.7 H (14-18) Glucose 115 H (74-106) mg/dL Lactic Acid 0.8 (0.4-2.0) mmol/L Calcium 8.3 L (8.5-10.1) mg/dL Magnesium (1.8-2.4) mg/dl C-Reactive Protein (<1.0) mg/dL 10/18/20 10/18/20 Range/Units 06:05 07:52 WBC (4.23-9.07) K/mm3 RBC (4.63-6.08) M/mm3 Hgb (13.7-17.5) gm/dl Hct (40.1-51.0) % MCV (79.0-92.2) fl MCH (25.7-32.2) pg MCHC (32.2-35.5) g/dl RDW Std Deviation (35.1-43.9) fL Plt Count (163-337) K/mm3 MPV (9.4-12.3) fl D-Dimer, Quantitative 6.98 H (0.19-0.50) mg/L Puncture Site Rt radial ABG pH 7.41 (7.35-7.45) ABG pCO2 50.1 H (35.0-45.0) mmHg ABG pO2 81.0 (80.0-100.0) mmHg ABG HCO3 30.9 H (22.0-26.0) meq/L ABG O2 Saturation 95.7 L (96.0-97.0) % ABG Base Excess 5.6 H (-2-2.0) Micah Test A-a Gradient 142 mmHg O2 Delivery Device Ventilator FiO2 40.00 (21.00-100.00) % Tidal Volume 550.0 cc PEEP 8.0 cmH20 Sodium (136-145) mEq/L Potassium (3.5-5.1) mEq/L Chloride (98-107) mEq/L Carbon Dioxide (21-32) mEq/L Anion Gap (5-15) BUN (7-18) mg/dL Creatinine (0.7-1.3) mg/dL Est Cr Clr Drug Dosing mL/min Estimated GFR (MDRD) (>60) mL/min BUN/Creatinine Ratio (14-18) Glucose (74-106) mg/dL Lactic Acid (0.4-2.0) mmol/L Calcium (8.5-10.1) mg/dL Magnesium (1.8-2.4) mg/dl C-Reactive Protein (<1.0) mg/dL Result Diagrams: 10/18/20 05:30 10/18/20 05:30 Eliazar Results Last 24 hrs: Microbiology 10/14/20 19:39 Aerobic Blood Culture - Preliminary Blood - Venous NO GROWTH AFTER 3 DAYS Anaerobic Blood Culture - Preliminary NO GROWTH AFTER 3 DAYS 10/14/20 19:30 Aerobic Blood Culture - Preliminary Blood - Venous - Lab Draw NO GROWTH AFTER 3 DAYS Anaerobic Blood Culture - Preliminary NO GROWTH AFTER 3 DAYS 10/16/20 10:20 Gram Stain - Final Sputum - Induced Sputum Culture - Preliminary Sepsis Event Note - Evaluation Sepsis Screening Result: Severe Sepsis Risk - Focused Exam Vital Signs: Vital Signs Temp Pulse Resp BP Pulse Ox Pulse Ox 10/18/20 08:01 20 133/88 96 10/18/20 08:00 97.6 F 65 18 95 10/18/20 07:46 18 131/85 96 10/18/20 07:45 18 94 L 10/18/20 07:31 18 134/81 97 10/18/20 07:30 18 96 10/18/20 07:16 18 133/83 97 10/18/20 07:15 18 96 10/18/20 07:01 18 133/81 97 10/18/20 07:00 18 95 10/18/20 06:46 18 132/82 97 10/18/20 06:45 18 95 10/18/20 06:31 18 133/82 97 10/18/20 06:30 18 95 10/18/20 06:16 18 133/83 96 10/18/20 06:15 18 95 10/18/20 06:01 18 137/82 95 10/18/20 06:00 18 94 L 95 10/18/20 05:50 18 135/84 95 10/18/20 05:49 16 93 L 10/18/20 05:46 18 163/89 H 95 10/18/20 05:45 21 H 95 10/18/20 05:31 18 149/82 H 95 10/18/20 05:30 18 95 10/18/20 05:16 18 146/83 H 95 10/18/20 05:15 18 95 10/18/20 05:01 18 151/86 H 94 L 10/18/20 05:00 18 94 L 10/18/20 04:53 17 137/83 94 L 10/18/20 04:52 19 94 L 10/18/20 04:31 19 141/83 H 97 10/18/20 04:30 21 H 97 10/18/20 04:25 18 10/18/20 04:24 95 10/18/20 04:01 18 145/80 H 95 10/18/20 04:00 98 F 17 95 10/18/20 03:31 18 138/79 95 10/18/20 03:01 18 141/77 H 95 10/18/20 03:00 18 95 10/18/20 02:41 95 10/18/20 02:31 18 137/76 95 10/18/20 02:30 18 95 10/18/20 02:01 18 139/73 95 10/18/20 02:00 18 95 10/18/20 01:31 18 137/74 94 L 10/18/20 01:30 18 94 L 10/18/20 01:01 18 135/75 94 L 10/18/20 01:00 18 94 L 10/18/20 00:51 18 95 10/18/20 00:31 18 131/72 93 L 10/18/20 00:01 18 93 L 10/18/20 00:00 97.8 F 18 137/73 93 L 10/17/20 23:59 17 94 L 10/17/20 23:30 18 141/83 H 94 L 10/17/20 23:29 19 95 10/17/20 23:19 20 95 10/17/20 23:01 18 94 L 10/17/20 23:00 18 137/73 94 L 10/17/20 22:59 18 94 L 10/17/20 22:30 18 138/77 93 L 10/17/20 22:29 18 93 L 10/17/20 22:19 18 93 L 10/17/20 22:01 18 132/77 92 L 10/17/20 22:00 18 92 L 10/17/20 21:31 17 135/78 93 L 10/17/20 21:30 17 94 L - Problem List & Annotations (1) Marijuana use SNOMED Code(s): 823207076 Code(s): F12.90 - CANNABIS USE, UNSPECIFIED, UNCOMPLICATED Status: Acute Current Visit: Yes (2) Methamphetamine abuse SNOMED Code(s): 013202695 Code(s): F15.10 - OTHER STIMULANT ABUSE, UNCOMPLICATED Status: Acute Current Visit: Yes (3) Status asthmaticus SNOMED Code(s): 757066207 Code(s): J45.902 - UNSPECIFIED ASTHMA WITH STATUS ASTHMATICUS Status: Acute Current Visit: Yes (4) Respiratory failure SNOMED Code(s): 240296462 Code(s): J96.90 - RESPIRATORY FAILURE, UNSP, UNSP W HYPOXIA OR HYPERCAPNIA Status: Acute Current Visit: Yes - Problem List Review Problem List Initiated/Reviewed/Updated: Yes - My Orders Last 24 Hours: My Active Orders 10/18/20 09:25 CXR [Chest 1V Frontal] [CR] Routine - Plan Plan:: 30 year old male with acute hypoxemic respiratory distress, presumptively covered for atypical/community-acquired pneumonia with Rocephin and azithromycin. the patient tested positive for marijuana and methamphetamine. Stated that the marijuana had to have been laced, he denied active use of methamphetamine. Patient had a significantly elevated D-dimer on admission with a negative CT angiogram of the chest and subsequent negative right upper extremity ultrasound. He has no lower extremity edema, swelling, redness. He is currently being treated with full dose Lovenox anticoagulation. Unfortunately, patient had brown to black OG discharge making it concerning for some upper GI bleeding. He is currently on Pepcid at night. Also spoke with his brother today. Brother states that he is very difficult to extubate if a loved one is not nearby to calm him down. We failed extubation today secondary to agitation. Also unknown if there are any web designer developer drugs on board. Impression: Acute hypoxemic respiratory distress-subsequent failure, S/P intubation after failed BiPAP Methamphetamine positive, query inhalation eg "Gerson" cf IDU. Patient is known to use illicit drugs in the past. Hypertensivestable Methamphetamine withdrawal Upper GI bleed Elevated D-dimer: Decreasing without source of thrombosis Chronic Obesity Polysubstance abuse Asthma Plan: HTN meds: scheduled/prn hydralazine; Vasotec; Lopressor Day 3 of Zithromax and Rocephin Nebs: Duonebs/Albuterol, scheduled/prn Steroid change to Dexamethasone 6 mg IV daily for 10 days or as appropriate. Sedation needed d/t MV, avoid agitation with withdrawal from methamphetamine. DVT prophylaxis, Lovernox 40 mg Q 12 H-->change to 95 mg SQ every 12 hours--> changed to Lovenox 40 mg daily secondary to presumed GI bleed. This may need to be discontinued as soon as he is ambulating. Plan to try to extubate tomorrow with brother present. NPO except meds PCXR scheduled or prn pending clinical course MV, adjust VT/PEEP/FiO2 per response, keep O2 sat>92% AM labs re: sepsis/COVID-19 COVID-19 precaution s/p intubation
--- NOTE | 2020-10-18 10:42 | CR ---
Chest: Portable view of the chest was obtained. Comparison: Prior chest x-ray of 10/16/20. Endotracheal tube is seen with tip lying at the level of the lower clavicles. Nasogastric tube is seen with tip lying in the region of the stomach. Lungs show no acute parenchymal change. Prior surgery is noted within the right acromioclavicular joint. Heart size and mediastinum are within normal limits. Impression: 1. Endotracheal tube and nasogastric tube. 2. Other stable findings as noted above. Nothing acute is otherwise seen. Diagnostic code #2
[2020-10-18] MEDS: LORazepam 40 MG in Dextrose 5% in Water 20 ML IV SCH ×2 (10:48)
[2020-10-18] MEDS: Azithromycin 500 MG in Sodium Chloride 0.9% 250 ML IV SCH (10:59)
[2020-10-18] MEDS: cefTRIAXone 2 GM in Sodium Chloride 0.9% 100 ML IV SCH (12:21)
--- NOTE | 2020-10-18 12:25 | CR ---
Chest: Portable view of the chest was obtained. Comparison: Prior chest x-ray performed earlier on the same day (9:46 AM). Endotracheal tube lies at the lower level of clavicles. Nasogastric tube is seen with tip lying within the stomach. Lungs are clear. Heart size and mediastinum are normal. Bony structures appear unchanged with previous surgery within the right acromioclavicular joint. Impression: 1. Position of the endotracheal tube is within normal limits. 2. Nasogastric tube is seen with tip lying within the region of the proximal stomach. 3. Nothing acute is otherwise seen. Diagnostic code #3
[2020-10-18] MEDS: Pantoprazole 40 MG Vial IVPUSH SCH ×2 (13:03→20:06)
[2020-10-18] MEDS: Dexamethasone 4 MG/ML SDV IVPUSH SCH (19:09)
--- NOTE | 2020-10-18 19:47 | CR ---
Chest: Portable view of the chest was obtained. Comparison: Prior chest x-ray performed earlier on same day (11:24 AM). Endotracheal tube is seen. Tip lies at the lower level of the clavicles. Nasogastric tube is seen with tip appearing to be within the stomach. Lungs remain clear with no acute parenchymal change. Heart size and mediastinum are within normal limits. Previous surgery is seen within the right acromioclavicular joint. Impression: 1. Endotracheal tube. Nasogastric tube. 2. Nothing acute is seen on portable chest x-ray. Diagnostic code #3
[2020-10-19] MEDS: Albuterol/Ipratropium 3.0-0.5 MG/3 ML Neb Soln NEB SCH ×7 (00:10→23:26)
[2020-10-19] MEDS: propofoL 100 ML IV SCH ×3 (01:37→08:42)
[2020-10-19] MEDS: Lactated Ringers 1,000 ML IV SCH (06:42)
[2020-10-19] MEDS: Budesonide 0.5 MG/2 ML Neb Susp NEB SCH ×3 (07:13→20:08)
[2020-10-19] MEDS: Enoxaparin 40 MG/0.4 ML Syringe SUBCUT SCH (08:04)
[2020-10-19] MEDS: Pantoprazole 40 MG Vial IVPUSH SCH ×2 (08:04→20:40)
[2020-10-19] MEDS ORDERED: Sodium Chloride 0.9% Inhalation Soln 3 ML Neb INH PRN (09:11)
[2020-10-19] MEDS ORDERED: Racepinephrine 2.25% 0.5 ML Neb Soln NEB SCH (09:16)
[2020-10-19] MEDS: Midazolam 5 MG/ML 10 ML MDV IV PRN ×3 (09:48→13:14)
[2020-10-19] MEDS: Nicotine 21 MG/24 Hr Patch TRDERM SCH (10:06)
[2020-10-19] MEDS: Haloperidol Lactate 5 MG/ML SDV IVPUSH PRN ×2 (10:24→13:19)
[2020-10-19] MEDS: cefTRIAXone 2 GM in Sodium Chloride 0.9% 100 ML IV SCH (11:48)
[2020-10-19] MEDS: LORazepam 40 MG in Dextrose 5% in Water 20 ML IV SCH ×2 (12:55)
[2020-10-19] MEDS ORDERED: Haloperidol Lactate 5 MG/ML SDV IVPUSH ONE ×3 (13:16→14:20)
[2020-10-19] MEDS ORDERED: diphenhydrAMINE 50 MG/ML SDV IVPUSH ONE (15:11)
[2020-10-19] MEDS ORDERED: LORazepam 2 MG/ML SDV IVPUSH SCH (15:55)
[2020-10-19] MEDS ORDERED: LORazepam 2 MG/ML SDV ONE (16:01)
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
[2020-10-19] MEDS: methylPREDNISolone Sodium Succinate 40 MG/1 ML SDV IVPUSH SCH (18:01)
[2020-10-19] MEDS: Dextrose 5%-0.9% NaCl 1,000 ML IV SCH (18:02)
[2020-10-19] MEDS: LORazepam 2 MG/ML SDV IVPUSH PRN ×2 (18:32→22:54)
[2020-10-19] MEDS: fentaNYL 100 MCG/2 ML SDV IVPUSH PRN ×2 (20:28→23:28)
[2020-10-19] MEDS: Sodium Chloride 0.9% 10 ML Syringe FLUSH PRN (20:47)
[2020-10-20] MEDS: methylPREDNISolone Sodium Succinate 40 MG/1 ML SDV IVPUSH SCH ×3 (01:29→18:28)
[2020-10-20] MEDS: Dextrose 5%-0.9% NaCl 1,000 ML IV SCH (02:15)
[2020-10-20] MEDS: Albuterol/Ipratropium 3.0-0.5 MG/3 ML Neb Soln NEB SCH ×3 (03:57→12:15)
[2020-10-20] MEDS: LORazepam 2 MG/ML SDV IVPUSH PRN ×2 (05:40→22:32)
[2020-10-20] MEDS: Pantoprazole 40 MG Vial IVPUSH SCH (08:30)
[2020-10-20] MEDS: Nicotine 21 MG/24 Hr Patch TRDERM SCH (08:30)
[2020-10-20] MEDS: Enoxaparin 40 MG/0.4 ML Syringe SUBCUT SCH (08:32)
[2020-10-20] MEDS: Metoprolol Tartrate 5 MG/5 ML SDV IVPUSH PRN (08:48)
[2020-10-20] MEDS: Budesonide 0.5 MG/2 ML Neb Susp NEB SCH ×2 (09:05→20:15)
[2020-10-20] MEDS: Remove AND REPLACE NICOTINE Patch TRDERM SCH (10:30)
[2020-10-20] MEDS: Sulfamethoxazole/Trimethoprim 800-160 MG Tab PO SCH ×2 (12:08→20:43)
--- NOTE | 2020-10-20 13:24 | PCM.PN ---
- General Info Date of Service: 10/20/20 Admission Dx/Problem (Free Text): Admission Diagnosis/Problem Admission Diagnosis/Problem Asthma with acute exacerbation Subjective Update: Precedex was able to be weaned off overnight. Patient was also able to be removed out of soft restraints. He is biggest complaint is being hungry and he is taking orally well. Patient has not required any sedating medicine since last night. Functional Status: Reports: Pain Controlled - Review of Systems General: Reports: No Symptoms HEENT: Reports: No Symptoms Pulmonary: Reports: No Symptoms Cardiovascular: Reports: No Symptoms Gastrointestinal: Reports: Other (Hungry) Musculoskeletal: Reports: No Symptoms Skin: Reports: No Symptoms Psychiatric: Reports: Confusion - Patient Data Vitals - Most Recent: Last Vital Signs Temp 98.3 F 10/20/20 12:00 Pulse 117 H 10/20/20 12:00 Resp 21 H 10/20/20 09:01 BP 143/88 H 10/20/20 09:00 Pulse Ox 92 L 10/20/20 12:24 Weight - Most Recent: 223 lb I&O - Last 24 Hours: Intake & Output 10/19/20 10/20/20 10/20/20 22:59 06:59 14:59 Intake Total 1574 1939 718 Output Total 725 1125 925 Balance 849 814 -207 Lab Results Last 24 Hours: Laboratory Results - last 24 hr 10/20/20 10/20/20 Range/Units 05:20 05:30 WBC 7.46 (4.23-9.07) K/mm3 RBC 4.61 L (4.63-6.08) M/mm3 Hgb 13.8 (13.7-17.5) gm/dl Hct 42.7 (40.1-51.0) % MCV 92.6 H D (79.0-92.2) fl MCH 29.9 (25.7-32.2) pg MCHC 32.3 (32.2-35.5) g/dl RDW Std Deviation 39.4 (35.1-43.9) fL Plt Count 199 (163-337) K/mm3 MPV 10.7 (9.4-12.3) fl Neut % (Auto) 85.9 H (34.0-67.9) % Lymph % (Auto) 10.3 L (21.8-53.1) % [place] % (Auto) 3.1 L (5.3-12.2) % Eos % (Auto) 0 L (0.8-7.0) Baso % (Auto) 0.0 L (0.1-1.2) % Neut # (Auto) 6.41 H (1.78-5.38) K/mm3 Lymph # (Auto) 0.77 L (1.32-3.57) K/mm3 [place] # (Auto) 0.23 L (0.30-0.82) K/mm3 Eos # (Auto) 0.00 L (0.04-0.54) K/mm3 Baso # (Auto) 0.00 L (0.01-0.08) K/mm3 Manual Slide Review Normal smear Sodium 140 (136-145) mEq/L Potassium 4.0 (3.5-5.1) mEq/L Chloride 106 (98-107) mEq/L Carbon Dioxide 25 (21-32) mEq/L Anion Gap 13.0 (5-15) BUN 21 H (7-18) mg/dL Creatinine 0.8 (0.7-1.3) mg/dL Est Cr Clr Drug Dosing 145.50 mL/min Estimated GFR (MDRD) > 60 (>60) mL/min BUN/Creatinine Ratio 26.3 H (14-18) Glucose 121 H (74-106) mg/dL Calcium 8.3 L (8.5-10.1) mg/dL Phosphorus 3.2 (2.6-4.7) mg/dL Magnesium 2.1 (1.8-2.4) mg/dl Total Bilirubin 0.5 (0.2-1.0) mg/dL AST 16 (15-37) U/L ALT 19 (16-63) U/L Alkaline Phosphatase 72 (46-116) U/L Total Protein 6.4 (6.4-8.2) g/dl Albumin 2.8 L (3.4-5.0) g/dl Globulin 3.6 gm/dL Albumin/Globulin Ratio 0.8 L (1-2) Eliazar Results Last 24 Hours: Microbiology 10/16/20 10:20 Gram Stain - Final Sputum - Induced Sputum Culture - Preliminary Streptococcus Pneumoniae Haemophilus Influenzae Iii 10/14/20 19:39 Aerobic Blood Culture - Preliminary Blood - Venous NO GROWTH AFTER 5 DAYS Anaerobic Blood Culture - Preliminary NO GROWTH AFTER 5 DAYS 10/14/20 19:30 Aerobic Blood Culture - Preliminary Blood - Venous - Lab Draw NO GROWTH AFTER 5 DAYS Anaerobic Blood Culture - Preliminary NO GROWTH AFTER 5 DAYS Med Orders - Current: Current Medications Acetaminophen (Tylenol) 650 mg PO Q6H PRN PRN Reason: Pain/Fever Albuterol (Proventil Neb Soln) 2.5 mg NEB Q4H PRN PRN Reason: Shortness of Breath Budesonide (Pulmicort) 1 mg NEB BID [facility] Last Admin: 10/20/20 09:05 Dose: 1 mg Documented by: Calcium Chloride (Calcium Chloride 10%) 1 gm IVPUSH Q4H PRN PRN Reason: K>6 Last Admin: 10/15/20 14:44 Dose: 1 gm Documented by: Dextrose/Water (Dextrose 50% In Water) 50 ml IVPUSH ASDIRECTED [facility] Enoxaparin Sodium (Lovenox) 40 mg SUBCUT DAILY [facility] Last Admin: 10/20/20 08:32 Dose: 40 mg Documented by: Fentanyl (Sublimaze) 50 mcg IVPUSH Q30M PRN PRN Reason: Pain Last Admin: 10/19/20 23:28 Dose: 50 mcg Documented by: Haloperidol Lactate (Haldol) 2 mg IVPUSH Q4H PRN PRN Reason: Withdrawal Symptoms Last Admin: 10/19/20 13:19 Dose: 2 mg Documented by: dexmedeTOMIDine in dextrose 5% (400 mcg/ Premix) 100 mls @ 0 mls/hr IV TITRATE [facility]; Protocol Last Infusion: 10/20/20 06:45 Dose: 0 mls/hr Documented by: Lorazepam (Ativan) 1 mg IVPUSH Q30M PRN PRN Reason: Anxiety Last Admin: 10/20/20 05:40 Dose: 1 mg Documented by: Methylprednisolone Sodium Succinate (Solu-Medrol) 40 mg IVPUSH Q8H [facility] Last Admin: 10/20/20 10:26 Dose: 40 mg Documented by: Miscellaneous Information (Remove Patch) 1 ea TRDERM DAILY@1000 [facility] Last Admin: 10/20/20 10:30 Dose: 1 ea Documented by: Nicotine (Habitrol) 21 mg TRDERM DAILY [facility] Last Admin: 10/20/20 08:30 Dose: 21 mg Documented by: Pantoprazole Sodium (Protonix Iv) 40 mg IVPUSH BID [facility] Last Admin: 10/20/20 08:30 Dose: 40 mg Documented by: Sodium Chloride (Saline Flush) 10 ml FLUSH ASDIRECTED PRN PRN Reason: Keep Vein Open Last Admin: 10/19/20 20:47 Dose: 10 ml Documented by: Trimethoprim/Sulfamethoxazole (Septra Ds) 1 tab PO BID [facility] Last Admin: 10/20/20 12:08 Dose: 1 tab Documented by: Discontinued Medications Acetaminophen (Tylenol) 650 mg PO NOW ONE Stop: 10/14/20 21:36 Last Admin: 10/14/20 22:23 Dose: Not Given Documented by: Albuterol (Proventil Neb Soln) Confirm Administered Dose 2.5 mg .ROUTE .STK-MED ONE Stop: 10/14/20 18:51 Last Admin: 10/14/20 18:57 Dose: Not Given Documented by: Albuterol (Proventil Neb Soln) 2.5 mg NEB ONETIME ONE Stop: 10/14/20 18:53 Last Admin: 10/14/20 18:55 Dose: 2.5 mg Documented by: Albuterol (Proventil Neb Soln) 2.5 mg NEB Q4HRRT [facility] Last Admin: 10/16/20 05:34 Dose: 2.5 mg Documented by: Albuterol/Ipratropium (Duoneb 3.0-0.5 Mg/3 Ml) 3 ml NEB ONETIME ONE Stop: 10/14/20 19:14 Last Admin: 10/14/20 19:23 Dose: 3 ml Documented by: Albuterol/Ipratropium (Duoneb 3.0-0.5 Mg/3 Ml) 3 ml NEB STAT STA Stop: 10/15/20 05:17 Last Admin: 10/15/20 05:26 Dose: 3 ml Documented by: Albuterol/Ipratropium (Duoneb 3.0-0.5 Mg/3 Ml) 3 ml NEB STAT STA Stop: 10/15/20 06:36 Last Admin: 10/15/20 06:44 Dose: 3 ml Documented by: Albuterol/Ipratropium (Duoneb 3.0-0.5 Mg/3 Ml) 3 ml NEB Q6HRRT [facility] Last Admin: 10/16/20 08:44 Dose: 3 ml Documented by: Albuterol/Ipratropium (Duoneb 3.0-0.5 Mg/3 Ml) 3 ml NEB Q4H [facility] Last Admin: 10/20/20 12:15 Dose: 3 ml Documented by: Budesonide (Pulmicort) 1 mg NEB BIDRT [facility] Dexamethasone (Decadron) 6 mg IVPUSH Q24H [facility] Dexamethasone (Decadron) 6 mg IVPUSH Q24H [facility] Last Admin: 10/18/20 19:09 Dose: 6 mg Documented by: Dexmedetomidine HCl (Precedex) 0 mcg IV CONTINUOUS [facility]; Protocol Diphenhydramine HCl (Benadryl) 50 mg IVPUSH ONETIME ONE Stop: 10/19/20 15:12 Last Admin: 10/19/20 15:34 Dose: 50 mg Documented by: Enalaprilat (Vasotec Iv) 0.625 mg IVPUSH Q6H PRN PRN Reason: Hypertension Last Admin: 10/15/20 11:22 Dose: 0.625 mg Documented by: Enalaprilat (Vasotec Iv) 1.25 mg IVPUSH Q6H PRN PRN Reason: Hypertension Enoxaparin Sodium (Lovenox) 40 mg SUBCUT Q12H [facility] Last Admin: 10/16/20 02:13 Dose: 40 mg Documented by: Enoxaparin Sodium (Lovenox) 100 mg SUBCUT BID [facility] Last Admin: 10/18/20 08:35 Dose: 100 mg Documented by: Enoxaparin Sodium (Lovenox) 60 mg SUBCUT ONETIME ONE Stop: 10/16/20 11:46 Last Admin: 10/16/20 11:46 Dose: 60 mg Documented by: Famotidine (Pepcid) 20 mg IVPUSH ONETIME ONE Stop: 10/15/20 20:50 Last Admin: 10/15/20 21:04 Dose: 20 mg Documented by: Famotidine (Pepcid) 20 mg IVPUSH BEDTIME [facility] Last Admin: 10/17/20 20:50 Dose: 20 mg Documented by: Haloperidol Lactate (Haldol) Confirm Administered Dose 5 mg .ROUTE .STK-MED ONE Stop: 10/15/20 09:41 Last Admin: 10/15/20 09:52 Dose: Not Given Documented by: Haloperidol Lactate (Haldol) 1 mg IVPUSH ONETIME ONE Stop: 10/15/20 09:45 Last Admin: 10/15/20 12:09 Dose: 1 mg Documented by: Haloperidol Lactate (Haldol) 1 mg IVPUSH ONETIME ONE Stop: 10/15/20 09:47 Last Admin: 10/15/20 09:46 Dose: 1 mg Documented by: Haloperidol Lactate (Haldol) Confirm Administered Dose 5 mg .ROUTE .STK-MED ONE Stop: 10/15/20 09:59 Last Admin: 10/15/20 12:17 Dose: Not Given Documented by: Haloperidol Lactate (Haldol) 2 mg IVPUSH ONETIME ONE Stop: 10/19/20 13:17 Last Admin: 10/19/20 13:28 Dose: 2 mg Documented by: Haloperidol Lactate (Haldol) 4 mg IVPUSH ONETIME ONE Stop: 10/19/20 14:01 Last Admin: 10/19/20 13:46 Dose: 4 mg Documented by: Haloperidol Lactate (Haldol) 8 mg IVPUSH ONETIME ONE Stop: 10/19/20 14:21 Last Admin: 10/19/20 15:03 Dose: 8 mg Documented by: Hydralazine HCl (Apresoline) 10 mg IVPUSH Q2H PRN PRN Reason: Hypertension Last Admin: 10/15/20 09:28 Dose: 10 mg Documented by: Hydralazine HCl (Apresoline) Confirm Administered Dose 20 mg .ROUTE .STK-MED ONE Stop: 10/15/20 10:48 Last Admin: 10/15/20 11:50 Dose: Not Given Documented by: Hydralazine HCl (Apresoline) 20 mg IVPUSH Q8H [facility] Last Admin: 10/15/20 13:52 Dose: Not Given Documented by: Hydralazine HCl (Apresoline) 10 mg IVPUSH ONETIME ONE Stop: 10/15/20 10:50 Last Admin: 10/15/20 10:49 Dose: 10 mg Documented by: Hydralazine HCl (Apresoline) 20 mg IVPUSH Q8H [facility] Last Admin: 10/15/20 15:54 Dose: Not Given Documented by: Hydralazine HCl (Apresoline) 20 mg IVPUSH Q8H PRN PRN Reason: Hypertension Hydralazine HCl (Apresoline) 10 mg IVPUSH Q8H PRN PRN Reason: Hypertension Sodium Chloride (Normal Saline) 1,000 mls @ 100 mls/hr IV ASDIRECTED [facility] Last Admin: 10/14/20 19:59 Dose: 100 mls/hr Documented by: Doxycycline Hyclate 100 mg/ (Sodium Chloride) 100 mls @ 100 mls/hr IV Q12H [facility] Last Admin: 10/16/20 08:31 Dose: 100 mls/hr Documented by: Magnesium Sulfate/Dextrose 1 (gm/ Premix) 100 mls @ 100 mls/hr IV ONETIME ONE Stop: 10/15/20 09:57 Last Admin: 10/15/20 09:15 Dose: 100 mls/hr Documented by: Propofol (Diprivan 100 Ml) Confirm Administered Dose 100 mls @ as directed .BHAVYA PRATT .STK-MED ONE Stop: 10/15/20 10:04 Last Admin: 10/15/20 12:17 Dose: Not Given Documented by: Propofol (Diprivan 100 Ml) 100 mls @ 2.864 mls/hr IV TITRATE [facility]; Protocol Last Titration: 10/19/20 09:25 Dose: 0 mcg/kg/min, 0 mls/hr Documented by: Dextrose/Sodium Chloride (Dextrose 5%-1/2 Ns) 1,000 mls @ 100 mls/hr IV ASDIRECTED [facility] Last Infusion: 10/15/20 17:57 Dose: 100 mls/hr Documented by: Lorazepam 40 mg/ Dextrose/ (Water) 40 mls @ 1 mls/hr IV TITRATE [facility]; Protocol Last Titration: 10/19/20 16:07 Dose: 0 mg/hr, 0 mls/hr Documented by: Lactated Ringer's (Ringers, Lactated) 1,000 mls @ 125 mls/hr IV ASDIRECTED [facility] Stop: 10/16/20 03:01 Last Infusion: 10/16/20 03:00 Dose: 75 mls/hr Documented by: Lactated Ringer's (Ringers, Lactated) Confirm Administered Dose 1,000 mls @ as directed .ROUTE .STK-MED ONE Stop: 10/15/20 20:52 Last Admin: 10/15/20 20:58 Dose: Not Given Documented by: Lactated Ringer's (Ringers, Lactated) 250 mls @ 999 mls/hr IV ONETIME ONE Stop: 10/15/20 22:00 Last Admin: 10/15/20 21:45 Dose: 999 mls/hr Documented by: Lactated Ringer's (Ringers, Lactated) 1,000 mls @ 75 mls/hr IV ASDIRECTED [facility] Last Infusion: 10/18/20 12:25 Dose: 125 mls/hr Documented by: Azithromycin 500 mg/ Sodium (Chloride) 250 mls @ 250 mls/hr IV Q24H [facility] Last Admin: 10/18/20 10:59 Dose: 250 mls/hr Documented by: Ceftriaxone Sodium 2 gm/ (Sodium Chloride) 100 mls @ 200 mls/hr IV Q24H [facility] Last Admin: 10/19/20 11:48 Dose: 200 mls/hr Documented by: Lactated Ringer's (Ringers, Lactated) 500 mls @ 999 mls/hr IV ONETIME ONE Stop: 10/16/20 18:33 Last Admin: 10/16/20 18:21 Dose: 999 mls/hr Documented by: Lactated Ringer's (Ringers, Lactated) 1,000 mls @ 125 mls/hr IV ASDIRECTED [facility] Last Admin: 10/19/20 06:42 Dose: 125 mls/hr Documented by: Dextrose/Sodium Chloride (Dextrose 5%-Normal Saline) 1,000 mls @ 125 mls/hr IV ASDIRECTED [facility] Last Admin: 10/20/20 02:15 Dose: 125 mls/hr Documented by: Insulin Human Regular (Humulin R) 5 unit IV ONETIME ONE Stop: 10/15/20 13:18 Last Admin: 10/15/20 14:01 Dose: 5 unit Documented by: Lorazepam (Ativan) 0.5 mg IVPUSH ONETIME ONE Stop: 10/14/20 18:54 Last Admin: 10/14/20 18:57 Dose: 0.5 mg Documented by: Lorazepam (Ativan) Confirm Administered Dose 2 mg .ROUTE .STK-MED ONE Stop: 10/14/20 18:54 Last Admin: 10/14/20 18:57 Dose: Not Given Documented by: Lorazepam (Ativan) 1 mg IVPUSH ONETIME STA Stop: 10/15/20 01:44 Last Admin: 10/15/20 02:01 Dose: 1 mg Documented by: Lorazepam (Ativan) 1 mg IVPUSH STAT STA Stop: 10/15/20 05:15 Last Admin: 10/15/20 05:25 Dose: 1 mg Documented by: Lorazepam (Ativan) Confirm Administered Dose 2 mg .ROUTE .STK-MED ONE Stop: 10/15/20 05:20 Last Admin: 10/15/20 05:26 Dose: Not Given Documented by: Lorazepam (Ativan) 1 mg IVPUSH STAT STA Stop: 10/15/20 06:35 Last Admin: 10/15/20 06:52 Dose: 1 mg Documented by: Lorazepam (Ativan) 0 mg IVPUSH Q1H PRN; Protocol PRN Reason: Withdrawal Symptoms Last Admin: 10/15/20 08:53 Dose: 1 mg Documented by: Lorazepam (Ativan) 1 mg IVPUSH Q4H PRN PRN Reason: Anxiety Last Admin: 10/19/20 10:00 Dose: 1 mg Documented by: Lorazepam (Ativan) 2 mg IVPUSH ONETIME ONE Stop: 10/15/20 12:13 Last Admin: 10/15/20 12:15 Dose: 2 mg Documented by: Lorazepam (Ativan) Confirm Administered Dose 2 mg .ROUTE .STK-MED ONE Stop: 10/15/20 12:15 Last Admin: 10/15/20 12:32 Dose: Not Given Documented by: Lorazepam (Ativan) Confirm Administered Dose 2 mg .ROUTE .STK-MED ONE Stop: 10/15/20 12:20 Last Admin: 10/15/20 12:32 Dose: Not Given Documented by: Lorazepam (Ativan) 2 mg IVPUSH NOW STA Stop: 10/15/20 12:21 Last Admin: 10/15/20 12:20 Dose: 2 mg Documented by: Lorazepam (Ativan) 1 mg IVPUSH NOW STA Stop: 10/15/20 13:06 Last Admin: 10/15/20 13:05 Dose: 1 mg Documented by: Lorazepam (Ativan) 2 mg IVPUSH ONETIME [facility] Stop: 10/19/20 23:00 Last Admin: 10/19/20 16:09 Dose: 2 mg Documented by: Lorazepam (Ativan) Confirm Administered Dose 2 mg .ROUTE .STK-MED ONE Stop: 10/19/20 16:02 Last Admin: 10/19/20 16:47 Dose: Not Given Documented by: Methylprednisolone Sodium Succinate (Solu-Medrol) 125 mg IVPUSH ONETIME ONE Stop: 10/14/20 18:54 Last Admin: 10/14/20 18:58 Dose: 125 mg Documented by: Methylprednisolone Sodium Succinate (Solu-Medrol) Confirm Administered Dose 125 mg .ROUTE .STK-MED ONE Stop: 10/14/20 18:54 Last Admin: 10/14/20 18:57 Dose: Not Given Documented by: Methylprednisolone Sodium Succinate (Solu-Medrol) 125 mg IVPUSH Q6H [facility] Last Admin: 10/16/20 11:07 Dose: 125 mg Documented by: Metoprolol Tartrate (Lopressor) 5 mg IVPUSH Q4H PRN PRN Reason: heart rate >110 Last Admin: 10/20/20 08:48 Dose: 5 mg Documented by: Midazolam HCl (Versed 1 Mg/Ml) 10 mg .ROUTE .STK-MED ONE Stop: 10/15/20 13:01 Midazolam HCl (Versed 5 Mg/Ml) 10 mg IV Q15M PRN PRN Reason: Agitation Last Admin: 10/19/20 13:14 Dose: 10 mg Documented by: Morphine Sulfate (Morphine) 1 mg IVPUSH STAT STA Stop: 10/15/20 05:13 Last Admin: 10/15/20 05:20 Dose: 1 mg Documented by: Morphine Sulfate (Morphine) Confirm Administered Dose 2 mg .ROUTE .STK-MED ONE Stop: 10/15/20 05:19 Last Admin: 10/15/20 05:26 Dose: Not Given Documented by: Morphine Sulfate (Morphine) 1 mg IVPUSH STAT STA Stop: 10/15/20 06:35 Last Admin: 10/15/20 06:51 Dose: 1 mg Documented by: Morphine Sulfate (Morphine) Confirm Administered Dose 2 mg .ROUTE .STK-MED ONE Stop: 10/15/20 08:01 Last Admin: 10/15/20 09:10 Dose: Not Given Documented by: Morphine Sulfate (Morphine) 2 mg IVPUSH ONETIME ONE Stop: 10/15/20 08:05 Last Admin: 10/15/20 08:04 Dose: 2 mg Documented by: Morphine Sulfate (Morphine) 1 mg IVPUSH Q4H PRN PRN Reason: Pain (mild 1-3) Propofol (Diprivan 20 Ml) 200 mg .ROUTE .STK-MED ONE Stop: 10/15/20 13:01 Propofol (Diprivan 20 Ml) 200 mg .ROUTE .STK-MED ONE Stop: 10/15/20 13:01 Racepinephrine (S-2 2.25%) 0.5 ml NEB ONETIME [facility] Last Admin: 10/19/20 09:27 Dose: 0.5 ml Documented by: Rocuronium [place] (Zemuron) 50 mg .ROUTE .STK-MED ONE Stop: 10/15/20 13:01 Rocuronium [place] (Zemuron) 50 mg .ROUTE .STK-MED ONE Stop: 10/15/20 13:01 Sodium Chloride (Sodium Chloride 0.9%) 3 ml INH ASDIRECTED PRN PRN Reason: mix with racepinephrine neb Sodium Polystyrene Sulfonate (Kayexalate) 45 gm PO Q8H [facility] Stop: 10/15/20 22:01 Last Admin: 10/15/20 21:50 Dose: Not Given Documented by: Sodium Polystyrene Sulfonate (Kayexalate) 45 gm PO ONETIME ONE Stop: 10/16/20 19:01 Last Admin: 10/16/20 18:44 Dose: 45 gm Documented by: Succinylcholine Chloride (Quelicin) 200 mg .ROUTE .STK-MED ONE Stop: 10/15/20 13:01 - Exam Quality Assessment: Supplemental Oxygen General: Alert, Oriented HEENT: Pupils Equal Neck: Supple Lungs: Normal Respiratory Effort, Wheezing (Minimal) Cardiovascular: Regular Rhythm, Tachycardia (Sinus tachycardia) GI/Abdominal Exam: Normal Bowel Sounds, Soft, Non-Tender, No Organomegaly, No Distention, No Abnormal Bruit Extremities: Normal Inspection, Normal Range of Motion, Non-Tender, No Pedal Edema, Normal Capillary Refill Skin: Warm, Dry, Intact Psy/Mental Status: Alert, Normal Affect, Normal Mood - Patient Data Lab Results Last 24 hrs: Laboratory Results - last 24 hr 10/20/20 10/20/20 Range/Units 05:20 05:30 WBC 7.46 (4.23-9.07) K/mm3 RBC 4.61 L (4.63-6.08) M/mm3 Hgb 13.8 (13.7-17.5) gm/dl Hct 42.7 (40.1-51.0) % MCV 92.6 H D (79.0-92.2) fl MCH 29.9 (25.7-32.2) pg MCHC 32.3 (32.2-35.5) g/dl RDW Std Deviation 39.4 (35.1-43.9) fL Plt Count 199 (163-337) K/mm3 MPV 10.7 (9.4-12.3) fl Neut % (Auto) 85.9 H (34.0-67.9) % Lymph % (Auto) 10.3 L (21.8-53.1) % [place] % (Auto) 3.1 L (5.3-12.2) % Eos % (Auto) 0 L (0.8-7.0) Baso % (Auto) 0.0 L (0.1-1.2) % Neut # (Auto) 6.41 H (1.78-5.38) K/mm3 Lymph # (Auto) 0.77 L (1.32-3.57) K/mm3 [place] # (Auto) 0.23 L (0.30-0.82) K/mm3 Eos # (Auto) 0.00 L (0.04-0.54) K/mm3 Baso # (Auto) 0.00 L (0.01-0.08) K/mm3 Manual Slide Review Normal smear Sodium 140 (136-145) mEq/L Potassium 4.0 (3.5-5.1) mEq/L Chloride 106 (98-107) mEq/L Carbon Dioxide 25 (21-32) mEq/L Anion Gap 13.0 (5-15) BUN 21 H (7-18) mg/dL Creatinine 0.8 (0.7-1.3) mg/dL Est Cr Clr Drug Dosing 145.50 mL/min Estimated GFR (MDRD) > 60 (>60) mL/min BUN/Creatinine Ratio 26.3 H (14-18) Glucose 121 H (74-106) mg/dL Calcium 8.3 L (8.5-10.1) mg/dL Phosphorus 3.2 (2.6-4.7) mg/dL Magnesium 2.1 (1.8-2.4) mg/dl Total Bilirubin 0.5 (0.2-1.0) mg/dL AST 16 (15-37) U/L ALT 19 (16-63) U/L Alkaline Phosphatase 72 (46-116) U/L Total Protein 6.4 (6.4-8.2) g/dl Albumin 2.8 L (3.4-5.0) g/dl Globulin 3.6 gm/dL Albumin/Globulin Ratio 0.8 L (1-2) Result Diagrams: 10/20/20 05:30 10/20/20 05:20 Eliazar Results Last 24 hrs: Microbiology 10/16/20 10:20 Gram Stain - Final Sputum - Induced Sputum Culture - Preliminary Streptococcus Pneumoniae Haemophilus Influenzae Iii 10/14/20 19:39 Aerobic Blood Culture - Preliminary Blood - Venous NO GROWTH AFTER 5 DAYS Anaerobic Blood Culture - Preliminary NO GROWTH AFTER 5 DAYS 10/14/20 19:30 Aerobic Blood Culture - Preliminary Blood - Venous - Lab Draw NO GROWTH AFTER 5 DAYS Anaerobic Blood Culture - Preliminary NO GROWTH AFTER 5 DAYS Sepsis Event Note - Evaluation Sepsis Screening Result: No Definite Risk - Focused Exam Vital Signs: Vital Signs Temp Pulse Pulse Resp BP BP BP 10/20/20 12:24 10/20/20 12:00 98.3 F 117 H 10/20/20 11:00 98.6 F 10/20/20 10:00 113 H 10/20/20 09:25 10/20/20 09:01 21 H 10/20/20 09:00 97.3 F 24 H 143/88 H 10/20/20 08:59 23 H 10/20/20 08:50 23 H 150/74 H 10/20/20 08:49 22 H 10/20/20 08:48 133 H 25 H 127/74 10/20/20 08:47 23 H 10/20/20 08:45 143 H 10/20/20 08:01 17 10/20/20 08:00 98.6 F 19 140/94 H 10/20/20 07:59 20 10/20/20 07:01 19 10/20/20 07:00 17 141/92 H 141/92 H 10/20/20 06:59 17 10/20/20 06:21 10/20/20 06:01 19 10/20/20 06:00 15 121/86 10/20/20 05:06 20 10/20/20 05:00 15 134/94 H 10/20/20 04:03 10/20/20 04:01 10/20/20 04:00 97.5 F 13 135/96 H 10/20/20 03:00 134/96 H 10/20/20 02:01 15 10/20/20 02:00 138/96 H Pulse Ox Pulse Ox Pulse Ox 10/20/20 12:24 92 L 10/20/20 12:00 10/20/20 11:00 10/20/20 10:00 10/20/20 09:25 91 L 10/20/20 09:01 93 L 10/20/20 09:00 94 L 10/20/20 08:59 94 L 10/20/20 08:50 91 L 10/20/20 08:49 90 L 10/20/20 08:48 92 L 10/20/20 08:47 91 L 10/20/20 08:45 10/20/20 08:01 94 L 10/20/20 08:00 95 10/20/20 07:59 94 L 10/20/20 07:01 96 10/20/20 07:00 95 10/20/20 06:59 95 10/20/20 06:21 95 10/20/20 06:01 97 10/20/20 06:00 97 10/20/20 05:06 99 10/20/20 05:00 97 10/20/20 04:03 93 L 10/20/20 04:01 93 L 10/20/20 04:00 93 L 10/20/20 03:00 10/20/20 02:01 100 10/20/20 02:00 - Problem List & Annotations (1) Marijuana use SNOMED Code(s): 794680061 Code(s): F12.90 - CANNABIS USE, UNSPECIFIED, UNCOMPLICATED Status: Acute Current Visit: Yes (2) Methamphetamine abuse SNOMED Code(s): 078423468 Code(s): F15.10 - OTHER STIMULANT ABUSE, UNCOMPLICATED Status: Acute Current Visit: Yes (3) Status asthmaticus SNOMED Code(s): 835812368 Code(s): J45.902 - UNSPECIFIED ASTHMA WITH STATUS ASTHMATICUS Status: Acute Current Visit: Yes (4) Respiratory failure SNOMED Code(s): 446982621 Code(s): J96.90 - RESPIRATORY FAILURE, UNSP, UNSP W HYPOXIA OR HYPERCAPNIA Status: Acute Current Visit: Yes - Problem List Review Problem List Initiated/Reviewed/Updated: Yes - My Orders Last 24 Hours: My Active Orders 10/19/20 17:35 One To One Therapy [BH] Stat 10/19/20 17:45 fentaNYL [Sublimaze] 50 mcg IVPUSH Q30M PRN 10/19/20 17:48 LORazepam [Ativan] 1 mg IVPUSH Q30M PRN 10/19/20 18:00 methylPREDNISolone Sod Succ [Solu-MEDROL] 40 mg IVPUSH Q8H 10/20/20 Breakfast Regular Diet [DIET] 10/20/20 10:00 Remove-Discontinue Non-Violent Restraints ONETIME Remove Patch 1 ea TRDERM DAILY@1000 10/20/20 10:19 Consult to Physical Therapy [PT Evaluation and Treatment] [CONS] Routine 10/20/20 10:20 Consult to Occupational Therapy [OT Evaluation and Treatment] [CONS] Routine 10/20/20 11:15 Sulfamethoxazole/Trimethoprim [Septra DS] 1 tab PO BID - Plan Plan:: 30 year old male with acute hypoxemic respiratory failure Haemophilus influenza and pneumococcal pneumonia were both sensitive to Bactrim. Pneumococcal was mixed resistant/intermediate to Rocephin. Chest x-ray never did show any infiltrates with this very well could be from bronchitis. Positive for marijuana and methamphetamine on admission. Stated that the marijuana had to have been laced, he denied active use of methamphetamine. Patient had successful extubation yesterday and is continuing to improve in mental status. Impression: Acute hypoxemic respiratory distress-subsequent failure, * S/P extubation day 1 * Titrated off of O2 and now is on room air Methamphetamine positive, query inhalation eg "Gerson" cf IDU. Patient is known to use illicit drugs in the past. Elevated blood pressure without diagnosis of hypertension possibly secondary to methamphetamine withdrawal Methamphetamine withdrawal Upper GI bleed -resolved * Hemoglobin stable at 13.8 Elevated D-dimer: Decreasing without source of thrombosis Likely bronchitis more so than pneumonia secondary to Haemophilus influenza and streptococcal pneumonia Chronic Obesity Polysubstance abuse Asthma Plan: PT/OT consult When patient is more clear in his mental status will consult Dr. Graham and psychiatry. Pressures are mildly elevated. Will DC Lopressor, hydralazine and follow blood pressure and heart rate closely. Hydralazine has a tendency to increase heart rate and likely his heart rate is increased secondary to recovery and albuterol every 4 hours. 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 Awaiting improved mentation.
[2020-10-20] MEDS ORDERED: Albuterol/Ipratropium 3.0-0.5 MG/3 ML Neb Soln NEB PRN (15:00)
[2020-10-20] MEDS ORDERED: traZODone 50 MG Tab PO PRN ×2 (19:51→22:15)
[2020-10-20] MEDS: Melatonin 3 MG Tab PO PRN (20:43)
[2020-10-21] MEDS: Albuterol 0.083% 2.5 MG/3 ML Neb Soln NEB PRN ×2 (00:27→12:35)
[2020-10-21] MEDS: methylPREDNISolone Sodium Succinate 40 MG/1 ML SDV IVPUSH SCH ×3 (04:07→18:27)
[2020-10-21] MEDS: Pantoprazole 40 MG Tab.CR PO SCH ×2 (05:58→16:06)
[2020-10-21] MEDS: Budesonide 0.5 MG/2 ML Neb Susp NEB SCH ×2 (09:13→21:18)
[2020-10-21] MEDS: Nicotine 21 MG/24 Hr Patch TRDERM SCH (09:20)
[2020-10-21] MEDS: Enoxaparin 40 MG/0.4 ML Syringe SUBCUT SCH (09:21)
[2020-10-21] MEDS: Sulfamethoxazole/Trimethoprim 800-160 MG Tab PO SCH ×2 (09:21→21:45)
[2020-10-21] MEDS: Remove AND REPLACE NICOTINE Patch TRDERM SCH (09:22)
--- NOTE | 2020-10-21 11:30 | PCM.PN ---
- General Info Date of Service: 10/21/20 Admission Dx/Problem (Free Text): Admission Diagnosis/Problem Admission Diagnosis/Problem Asthma with acute exacerbation Subjective Update: Patient is much more awake and alert today. He is walking with physical therapy, occupational therapy and nursing. He is very interested in going to rehab or long-term care facility but he would like to have his family drive him there when it is appropriate. Functional Status: Reports: Pain Controlled - Review of Systems General: Reports: No Symptoms HEENT: Reports: No Symptoms Pulmonary: Reports: No Symptoms Cardiovascular: Reports: No Symptoms Gastrointestinal: Reports: No Symptoms Musculoskeletal: Reports: No Symptoms - Patient Data Vitals - Most Recent: Last Vital Signs Temp 97.9 F 10/21/20 08:00 Pulse 96 10/21/20 08:00 Resp 20 10/21/20 08:00 BP 137/91 H 10/21/20 08:00 Pulse Ox 98 10/21/20 09:14 Weight - Most Recent: 200 lb 12.8 oz I&O - Last 24 Hours: Intake & Output 10/20/20 10/21/20 10/21/20 22:59 06:59 14:59 Intake Total 1200 Output Total 175 1100 Balance 1025 -1100 Lab Results Last 24 Hours: Laboratory Results - last 24 hr 10/14/20 10/15/20 Range/Units 21:20 21:30 U Amphetam Cnfrm GC/MS 3291 U Amphetamine/Methamph >2577 Urine MDEA Positive Urine MDA Not detected Urine MDMA Screen Not detected Urine Cannabinoids Positive H U Cannabinoids (GC/MS) 67 (Cutoff=10) ng/mL Eliazar Results Last 24 Hours: Microbiology 10/14/20 19:39 Aerobic Blood Culture - Preliminary Blood - Venous NO GROWTH AFTER 6 DAYS Anaerobic Blood Culture - Preliminary NO GROWTH AFTER 6 DAYS 10/14/20 19:30 Aerobic Blood Culture - Preliminary Blood - Venous - Lab Draw NO GROWTH AFTER 6 DAYS Anaerobic Blood Culture - Preliminary NO GROWTH AFTER 6 DAYS 10/16/20 10:20 Gram Stain - Final Sputum - Induced Sputum Culture - Final Streptococcus Pneumoniae Haemophilus Influenzae Iii Med Orders - Current: Current Medications Acetaminophen (Tylenol) 650 mg PO Q6H PRN PRN Reason: Pain/Fever Albuterol (Proventil Neb Soln) 2.5 mg NEB Q4H PRN PRN Reason: Shortness of Breath Last Admin: 10/21/20 00:27 Dose: 2.5 mg Documented by: Albuterol/Ipratropium (Duoneb 3.0-0.5 Mg/3 Ml) 3 ml NEB Q6HRRT PRN PRN Reason: Wheezing Budesonide (Pulmicort) 1 mg NEB BID [facility] Last Admin: 10/21/20 09:13 Dose: 1 mg Documented by: Calcium Chloride (Calcium Chloride 10%) 1 gm IVPUSH Q4H PRN PRN Reason: K>6 Last Admin: 10/15/20 14:44 Dose: 1 gm Documented by: Dextrose/Water (Dextrose 50% In Water) 50 ml IVPUSH ASDIRECTED [facility] Enoxaparin Sodium (Lovenox) 40 mg SUBCUT DAILY [facility] Last Admin: 10/21/20 09:21 Dose: 40 mg Documented by: Fentanyl (Sublimaze) 50 mcg IVPUSH Q30M PRN PRN Reason: Pain Last Admin: 10/19/20 23:28 Dose: 50 mcg Documented by: Haloperidol Lactate (Haldol) 2 mg IVPUSH Q4H PRN PRN Reason: Withdrawal Symptoms Last Admin: 10/19/20 13:19 Dose: 2 mg Documented by: dexmedeTOMIDine in dextrose 5% (400 mcg/ Premix) 100 mls @ 0 mls/hr IV TITRATE [facility]; Protocol Last Infusion: 10/20/20 06:45 Dose: 0 mls/hr Documented by: Lorazepam (Ativan) 1 mg IVPUSH Q30M PRN PRN Reason: Anxiety Last Admin: 10/20/20 22:32 Dose: 1 mg Documented by: Melatonin (Melatonin) 9 mg PO BEDTIME PRN PRN Reason: Sleep Last Admin: 10/20/20 20:43 Dose: 9 mg Documented by: Methylprednisolone Sodium Succinate (Solu-Medrol) 40 mg IVPUSH Q8H [facility] Last Admin: 10/21/20 09:21 Dose: 40 mg Documented by: Miscellaneous Information (Remove Patch) 1 ea TRDERM DAILY@1000 [facility] Last Admin: 10/21/20 09:22 Dose: 1 ea Documented by: Nicotine (Habitrol) 21 mg TRDERM DAILY [facility] Last Admin: 10/21/20 09:20 Dose: 21 mg Documented by: Pantoprazole Sodium (Protonix) 40 mg PO BIDAC [facility] Last Admin: 10/21/20 05:58 Dose: 40 mg Documented by: Sodium Chloride (Saline Flush) 10 ml FLUSH ASDIRECTED PRN PRN Reason: Keep Vein Open Last Admin: 10/19/20 20:47 Dose: 10 ml Documented by: Trazodone HCl (Trazodone) 50 mg PO BEDTIME PRN PRN Reason: Sleep Trimethoprim/Sulfamethoxazole (Septra Ds) 1 tab PO BID [facility] Last Admin: 10/21/20 09:21 Dose: 1 tab Documented by: Discontinued Medications Acetaminophen (Tylenol) 650 mg PO NOW ONE Stop: 10/14/20 21:36 Last Admin: 10/14/20 22:23 Dose: Not Given Documented by: Albuterol (Proventil Neb Soln) Confirm Administered Dose 2.5 mg .ROUTE .STK-MED ONE Stop: 10/14/20 18:51 Last Admin: 10/14/20 18:57 Dose: Not Given Documented by: Albuterol (Proventil Neb Soln) 2.5 mg NEB ONETIME ONE Stop: 10/14/20 18:53 Last Admin: 10/14/20 18:55 Dose: 2.5 mg Documented by: Albuterol (Proventil Neb Soln) 2.5 mg NEB Q4HRRT [facility] Last Admin: 10/16/20 05:34 Dose: 2.5 mg Documented by: Albuterol/Ipratropium (Duoneb 3.0-0.5 Mg/3 Ml) 3 ml NEB ONETIME ONE Stop: 10/14/20 19:14 Last Admin: 10/14/20 19:23 Dose: 3 ml Documented by: Albuterol/Ipratropium (Duoneb 3.0-0.5 Mg/3 Ml) 3 ml NEB STAT STA Stop: 10/15/20 05:17 Last Admin: 10/15/20 05:26 Dose: 3 ml Documented by: Albuterol/Ipratropium (Duoneb 3.0-0.5 Mg/3 Ml) 3 ml NEB STAT STA Stop: 10/15/20 06:36 Last Admin: 10/15/20 06:44 Dose: 3 ml Documented by: Albuterol/Ipratropium (Duoneb 3.0-0.5 Mg/3 Ml) 3 ml NEB Q6HRRT [facility] Last Admin: 10/16/20 08:44 Dose: 3 ml Documented by: Albuterol/Ipratropium (Duoneb 3.0-0.5 Mg/3 Ml) 3 ml NEB Q4H [facility] Last Admin: 10/20/20 12:15 Dose: 3 ml Documented by: Budesonide (Pulmicort) 1 mg NEB BIDRT [facility] Dexamethasone (Decadron) 6 mg IVPUSH Q24H [facility] Dexamethasone (Decadron) 6 mg IVPUSH Q24H [facility] Last Admin: 10/18/20 19:09 Dose: 6 mg Documented by: Dexmedetomidine HCl (Precedex) 0 mcg IV CONTINUOUS [facility]; Protocol Diphenhydramine HCl (Benadryl) 50 mg IVPUSH ONETIME ONE Stop: 10/19/20 15:12 Last Admin: 10/19/20 15:34 Dose: 50 mg Documented by: Enalaprilat (Vasotec Iv) 0.625 mg IVPUSH Q6H PRN PRN Reason: Hypertension Last Admin: 10/15/20 11:22 Dose: 0.625 mg Documented by: Enalaprilat (Vasotec Iv) 1.25 mg IVPUSH Q6H PRN PRN Reason: Hypertension Enoxaparin Sodium (Lovenox) 40 mg SUBCUT Q12H [facility] Last Admin: 10/16/20 02:13 Dose: 40 mg Documented by: Enoxaparin Sodium (Lovenox) 100 mg SUBCUT BID [facility] Last Admin: 10/18/20 08:35 Dose: 100 mg Documented by: Enoxaparin Sodium (Lovenox) 60 mg SUBCUT ONETIME ONE Stop: 10/16/20 11:46 Last Admin: 10/16/20 11:46 Dose: 60 mg Documented by: Famotidine (Pepcid) 20 mg IVPUSH ONETIME ONE Stop: 10/15/20 20:50 Last Admin: 10/15/20 21:04 Dose: 20 mg Documented by: Famotidine (Pepcid) 20 mg IVPUSH BEDTIME [facility] Last Admin: 10/17/20 20:50 Dose: 20 mg Documented by: Haloperidol Lactate (Haldol) Confirm Administered Dose 5 mg .ROUTE .STK-MED ONE Stop: 10/15/20 09:41 Last Admin: 10/15/20 09:52 Dose: Not Given Documented by: Haloperidol Lactate (Haldol) 1 mg IVPUSH ONETIME ONE Stop: 10/15/20 09:45 Last Admin: 10/15/20 12:09 Dose: 1 mg Documented by: Haloperidol Lactate (Haldol) 1 mg IVPUSH ONETIME ONE Stop: 10/15/20 09:47 Last Admin: 10/15/20 09:46 Dose: 1 mg Documented by: Haloperidol Lactate (Haldol) Confirm Administered Dose 5 mg .ROUTE .STK-MED ONE Stop: 10/15/20 09:59 Last Admin: 10/15/20 12:17 Dose: Not Given Documented by: Haloperidol Lactate (Haldol) 2 mg IVPUSH ONETIME ONE Stop: 10/19/20 13:17 Last Admin: 10/19/20 13:28 Dose: 2 mg Documented by: Haloperidol Lactate (Haldol) 4 mg IVPUSH ONETIME ONE Stop: 10/19/20 14:01 Last Admin: 10/19/20 13:46 Dose: 4 mg Documented by: Haloperidol Lactate (Haldol) 8 mg IVPUSH ONETIME ONE Stop: 10/19/20 14:21 Last Admin: 10/19/20 15:03 Dose: 8 mg Documented by: Hydralazine HCl (Apresoline) 10 mg IVPUSH Q2H PRN PRN Reason: Hypertension Last Admin: 10/15/20 09:28 Dose: 10 mg Documented by: Hydralazine HCl (Apresoline) Confirm Administered Dose 20 mg .ROUTE .STK-MED ONE Stop: 10/15/20 10:48 Last Admin: 10/15/20 11:50 Dose: Not Given Documented by: Hydralazine HCl (Apresoline) 20 mg IVPUSH Q8H [facility] Last Admin: 10/15/20 13:52 Dose: Not Given Documented by: Hydralazine HCl (Apresoline) 10 mg IVPUSH ONETIME ONE Stop: 10/15/20 10:50 Last Admin: 10/15/20 10:49 Dose: 10 mg Documented by: Hydralazine HCl (Apresoline) 20 mg IVPUSH Q8H [facility] Last Admin: 10/15/20 15:54 Dose: Not Given Documented by: Hydralazine HCl (Apresoline) 20 mg IVPUSH Q8H PRN PRN Reason: Hypertension Hydralazine HCl (Apresoline) 10 mg IVPUSH Q8H PRN PRN Reason: Hypertension Sodium Chloride (Normal Saline) 1,000 mls @ 100 mls/hr IV ASDIRECTED [facility] Last Admin: 10/14/20 19:59 Dose: 100 mls/hr Documented by: Doxycycline Hyclate 100 mg/ (Sodium Chloride) 100 mls @ 100 mls/hr IV Q12H [facility] Last Admin: 10/16/20 08:31 Dose: 100 mls/hr Documented by: Magnesium Sulfate/Dextrose 1 (gm/ Premix) 100 mls @ 100 mls/hr IV ONETIME ONE Stop: 10/15/20 09:57 Last Admin: 10/15/20 09:15 Dose: 100 mls/hr Documented by: Propofol (Diprivan 100 Ml) Confirm Administered Dose 100 mls @ as directed .ROUTE .STK-MED ONE Stop: 10/15/20 10:04 Last Admin: 10/15/20 12:17 Dose: Not Given Documented by: Propofol (Diprivan 100 Ml) 100 mls @ 2.864 mls/hr IV TITRATE [facility]; Protocol Last Titration: 10/19/20 09:25 Dose: 0 mcg/kg/min, 0 mls/hr Documented by: Dextrose/Sodium Chloride (Dextrose 5%-1/2 Ns) 1,000 mls @ 100 mls/hr IV ASDIRECTED [facility] Last Infusion: 10/15/20 17:57 Dose: 100 mls/hr Documented by: Lorazepam 40 mg/ Dextrose/ (Water) 40 mls @ 1 mls/hr IV TITRATE [facility]; Protocol Last Titration: 10/19/20 16:07 Dose: 0 mg/hr, 0 mls/hr Documented by: Lactated Ringer's (Ringers, Lactated) 1,000 mls @ 125 mls/hr IV ASDIRECTED [facility] Stop: 10/16/20 03:01 Last Infusion: 10/16/20 03:00 Dose: 75 mls/hr Documented by: Lactated Ringer's (Ringers, Lactated) Confirm Administered Dose 1,000 mls @ as directed .ROUTE .STK-MED ONE Stop: 10/15/20 20:52 Last Admin: 10/15/20 20:58 Dose: Not Given Documented by: Lactated Ringer's (Ringers, Lactated) 250 mls @ 999 mls/hr IV ONETIME ONE Stop: 10/15/20 22:00 Last Admin: 10/15/20 21:45 Dose: 999 mls/hr Documented by: Lactated Ringer's (Ringers, Lactated) 1,000 mls @ 75 mls/hr IV ASDIRECTED [facility] Last Infusion: 10/18/20 12:25 Dose: 125 mls/hr Documented by: Azithromycin 500 mg/ Sodium (Chloride) 250 mls @ 250 mls/hr IV Q24H [facility] Last Admin: 10/18/20 10:59 Dose: 250 mls/hr Documented by: Ceftriaxone Sodium 2 gm/ (Sodium Chloride) 100 mls @ 200 mls/hr IV Q24H [facility] Last Admin: 10/19/20 11:48 Dose: 200 mls/hr Documented by: Lactated Ringer's (Ringers, Lactated) 500 mls @ 999 mls/hr IV ONETIME ONE Stop: 10/16/20 18:33 Last Admin: 10/16/20 18:21 Dose: 999 mls/hr Documented by: Lactated Ringer's (Ringers, Lactated) 1,000 mls @ 125 mls/hr IV ASDIRECTED [facility] Last Admin: 10/19/20 06:42 Dose: 125 mls/hr Documented by: Dextrose/Sodium Chloride (Dextrose 5%-Normal Saline) 1,000 mls @ 125 mls/hr IV ASDIRECTED [facility] Last Admin: 10/20/20 02:15 Dose: 125 mls/hr Documented by: Insulin Human Regular (Humulin R) 5 unit IV ONETIME ONE Stop: 10/15/20 13:18 Last Admin: 10/15/20 14:01 Dose: 5 unit Documented by: Lorazepam (Ativan) 0.5 mg IVPUSH ONETIME ONE Stop: 10/14/20 18:54 Last Admin: 10/14/20 18:57 Dose: 0.5 mg Documented by: Lorazepam (Ativan) Confirm Administered Dose 2 mg .ROUTE .STK-MED ONE Stop: 10/14/20 18:54 Last Admin: 10/14/20 18:57 Dose: Not Given Documented by: Lorazepam (Ativan) 1 mg IVPUSH ONETIME STA Stop: 10/15/20 01:44 Last Admin: 10/15/20 02:01 Dose: 1 mg Documented by: Lorazepam (Ativan) 1 mg IVPUSH STAT STA Stop: 10/15/20 05:15 Last Admin: 10/15/20 05:25 Dose: 1 mg Documented by: Lorazepam (Ativan) Confirm Administered Dose 2 mg .ROUTE .STK-MED ONE Stop: 10/15/20 05:20 Last Admin: 10/15/20 05:26 Dose: Not Given Documented by: Lorazepam (Ativan) 1 mg IVPUSH STAT STA Stop: 10/15/20 06:35 Last Admin: 10/15/20 06:52 Dose: 1 mg Documented by: Lorazepam (Ativan) 0 mg IVPUSH Q1H PRN; Protocol PRN Reason: Withdrawal Symptoms Last Admin: 10/15/20 08:53 Dose: 1 mg Documented by: Lorazepam (Ativan) 1 mg IVPUSH Q4H PRN PRN Reason: Anxiety Last Admin: 10/19/20 10:00 Dose: 1 mg Documented by: Lorazepam (Ativan) 2 mg IVPUSH ONETIME ONE Stop: 10/15/20 12:13 Last Admin: 10/15/20 12:15 Dose: 2 mg Documented by: Lorazepam (Ativan) Confirm Administered Dose 2 mg .ROUTE .STK-MED ONE Stop: 10/15/20 12:15 Last Admin: 10/15/20 12:32 Dose: Not Given Documented by: Lorazepam (Ativan) Confirm Administered Dose 2 mg .ROUTE .STK-MED ONE Stop: 10/15/20 12:20 Last Admin: 10/15/20 12:32 Dose: Not Given Documented by: Lorazepam (Ativan) 2 mg IVPUSH NOW STA Stop: 10/15/20 12:21 Last Admin: 10/15/20 12:20 Dose: 2 mg Documented by: Lorazepam (Ativan) 1 mg IVPUSH NOW STA Stop: 10/15/20 13:06 Last Admin: 10/15/20 13:05 Dose: 1 mg Documented by: Lorazepam (Ativan) 2 mg IVPUSH ONETIME [facility] Stop: 10/19/20 23:00 Last Admin: 10/19/20 16:09 Dose: 2 mg Documented by: Lorazepam (Ativan) Confirm Administered Dose 2 mg .ROUTE .STK-MED ONE Stop: 10/19/20 16:02 Last Admin: 10/19/20 16:47 Dose: Not Given Documented by: Methylprednisolone Sodium Succinate (Solu-Medrol) 125 mg IVPUSH ONETIME ONE Stop: 10/14/20 18:54 Last Admin: 10/14/20 18:58 Dose: 125 mg Documented by: Methylprednisolone Sodium Succinate (Solu-Medrol) Confirm Administered Dose 125 mg .ROUTE .STK-MED ONE Stop: 10/14/20 18:54 Last Admin: 10/14/20 18:57 Dose: Not Given Documented by: Methylprednisolone Sodium Succinate (Solu-Medrol) 125 mg IVPUSH Q6H [facility] Last Admin: 10/16/20 11:07 Dose: 125 mg Documented by: Metoprolol Tartrate (Lopressor) 5 mg IVPUSH Q4H PRN PRN Reason: heart rate >110 Last Admin: 10/20/20 08:48 Dose: 5 mg Documented by: Midazolam HCl (Versed 1 Mg/Ml) 10 mg .ROUTE .STK-MED ONE Stop: 10/15/20 13:01 Midazolam HCl (Versed 5 Mg/Ml) 10 mg IV Q15M PRN PRN Reason: Agitation Last Admin: 10/19/20 13:14 Dose: 10 mg Documented by: Morphine Sulfate (Morphine) 1 mg IVPUSH STAT STA Stop: 10/15/20 05:13 Last Admin: 10/15/20 05:20 Dose: 1 mg Documented by: Morphine Sulfate (Morphine) Confirm Administered Dose 2 mg .ROUTE .STK-MED ONE Stop: 10/15/20 05:19 Last Admin: 10/15/20 05:26 Dose: Not Given Documented by: Morphine Sulfate (Morphine) 1 mg IVPUSH STAT STA Stop: 10/15/20 06:35 Last Admin: 10/15/20 06:51 Dose: 1 mg Documented by: Morphine Sulfate (Morphine) Confirm Administered Dose 2 mg .ROUTE .STK-MED ONE Stop: 10/15/20 08:01 Last Admin: 10/15/20 09:10 Dose: Not Given Documented by: Morphine Sulfate (Morphine) 2 mg IVPUSH ONETIME ONE Stop: 10/15/20 08:05 Last Admin: 10/15/20 08:04 Dose: 2 mg Documented by: Morphine Sulfate (Morphine) 1 mg IVPUSH Q4H PRN PRN Reason: Pain (mild 1-3) Pantoprazole Sodium (Protonix Iv) 40 mg IVPUSH BID [facility] Last Admin: 10/20/20 08:30 Dose: 40 mg Documented by: Propofol (Diprivan 20 Ml) 200 mg .ROUTE .STK-MED ONE Stop: 10/15/20 13:01 Propofol (Diprivan 20 Ml) 200 mg .ROUTE .STK-MED ONE Stop: 10/15/20 13:01 Racepinephrine (S-2 2.25%) 0.5 ml NEB ONETIME [facility] Last Admin: 10/19/20 09:27 Dose: 0.5 ml Documented by: Rocuronium Orient (Zemuron) 50 mg .ROUTE .STK-MED ONE Stop: 10/15/20 13:01 Rocuronium Orient (Zemuron) 50 mg .ROUTE .STK-MED ONE Stop: 10/15/20 13:01 Sodium Chloride (Sodium Chloride 0.9%) 3 ml INH ASDIRECTED PRN PRN Reason: mix with racepinephrine neb Sodium Polystyrene Sulfonate (Kayexalate) 45 gm PO Q8H [facility] Stop: 10/15/20 22:01 Last Admin: 10/15/20 21:50 Dose: Not Given Documented by: Sodium Polystyrene Sulfonate (Kayexalate) 45 gm PO ONETIME ONE Stop: 10/16/20 19:01 Last Admin: 10/16/20 18:44 Dose: 45 gm Documented by: Succinylcholine Chloride (Quelicin) 200 mg .ROUTE .STK-MED ONE Stop: 10/15/20 13:01 Trazodone HCl (Trazodone) 50 mg PO ONETIME PRN PRN Reason: Sleep Last Admin: 10/20/20 20:43 Dose: 50 mg Documented by: - Exam Quality Assessment: No: Supplemental Oxygen, Restraints General: Alert HEENT: No: Pupils Equal (Left pupil larger than right. Patient states this is normal for him.) Neck: Supple Lungs: Clear to Auscultation, Normal Respiratory Effort Cardiovascular: Regular Rate, Regular Rhythm GI/Abdominal Exam: Normal Bowel Sounds, Soft, Non-Tender, No Organomegaly, No Distention, No Abnormal Bruit, No Mass Extremities: Normal Inspection, Normal Range of Motion, Non-Tender, No Pedal Edema, Normal Capillary Refill Peripheral Pulses: 2+: Posterior Tibial (L), Posterior Tibial (R), Dorsalis Pedis (L), Dorsalis Pedis (R) Skin: Warm, Dry, Intact Psy/Mental Status: Alert, Normal Affect, Normal Mood - Patient Data Lab Results Last 24 hrs: Laboratory Results - last 24 hr 10/14/20 10/15/20 Range/Units 21:20 21:30 U Amphetam Cnfrm GC/MS 3291 U Amphetamine/Methamph >2577 Urine MDEA Positive Urine MDA Not detected Urine MDMA Screen Not detected Urine Cannabinoids Positive H U Cannabinoids (GC/MS) 67 (Cutoff=10) ng/mL Result Diagrams: 10/20/20 05:30 10/20/20 05:20 Eliazar Results Last 24 hrs: Microbiology 10/14/20 19:39 Aerobic Blood Culture - Preliminary Blood - Venous NO GROWTH AFTER 6 DAYS Anaerobic Blood Culture - Preliminary NO GROWTH AFTER 6 DAYS 10/14/20 19:30 Aerobic Blood Culture - Preliminary Blood - Venous - Lab Draw NO GROWTH AFTER 6 DAYS Anaerobic Blood Culture - Preliminary NO GROWTH AFTER 6 DAYS 10/16/20 10:20 Gram Stain - Final Sputum - Induced Sputum Culture - Final Streptococcus Pneumoniae Haemophilus Influenzae Iii Sepsis Event Note - Evaluation Sepsis Screening Result: Sepsis Risk - Focused Exam Vital Signs: Vital Signs Temp Pulse Resp BP Pulse Ox Pulse Ox 10/21/20 09:14 98 10/21/20 08:00 97.9 F 96 20 137/91 H 94 L 10/21/20 04:00 97.7 F 17 133/82 96 10/21/20 00:27 93 L 10/21/20 00:00 97.3 F 21 H 142/92 H 96 - Problem List & Annotations (1) Marijuana use SNOMED Code(s): 167102244 Code(s): F12.90 - CANNABIS USE, UNSPECIFIED, UNCOMPLICATED Status: Acute Current Visit: Yes (2) Methamphetamine abuse SNOMED Code(s): 311527244 Code(s): F15.10 - OTHER STIMULANT ABUSE, UNCOMPLICATED Status: Acute Current Visit: Yes (3) Status asthmaticus SNOMED Code(s): 452716472 Code(s): J45.902 - UNSPECIFIED ASTHMA WITH STATUS ASTHMATICUS Status: Acute Current Visit: Yes (4) Respiratory failure SNOMED Code(s): 527749695 Code(s): J96.90 - RESPIRATORY FAILURE, UNSP, UNSP W HYPOXIA OR HYPERCAPNIA Status: Acute Current Visit: Yes - Problem List Review Problem List Initiated/Reviewed/Updated: Yes - My Orders Last 24 Hours: My Active Orders 10/20/20 11:15 Sulfamethoxazole/Trimethoprim [Septra DS] 1 tab PO BID 10/20/20 15:00 Albuterol/Ipratropium [DuoNeb 3.0-0.5 MG/3 ML] 3 ml NEB Q6HRRT PRN 10/20/20 19:50 Melatonin 9 mg PO BEDTIME PRN 10/20/20 22:15 traZODone 50 mg PO BEDTIME PRN 10/21/20 06:00 Pantoprazole [ProTONIX] 40 mg PO BIDAC 10/21/20 08:00 Consult to Physician [CONS] Routine 10/21/20 08:04 Notify Provider Consults [RC] ASDIRECTED - Plan Plan:: 30 year old male with acute hypoxemic respiratory failure Haemophilus influenza and pneumococcal pneumonia were both sensitive to Bactrim. Pneumococcal was mixed resistant/intermediate to Rocephin. Chest x-ray never did show any infiltrates with this very well could be from bronchitis. Positive for marijuana and methamphetamine on admission. Stated that the marijuana had to have been laced, he denied active use of methamphetamine. Patient had successful extubation yesterday and is continuing to improve in mental status. Impression: Acute hypoxemic respiratory distress-subsequent failure, * S/P extubation day 1 * Titrated off of O2 and now is on room air Methamphetamine positive, query inhalation eg "Gerson" cf IDU. Patient is known to use illicit drugs in the past. Elevated blood pressure without diagnosis of hypertension possibly secondary to methamphetamine withdrawal Methamphetamine withdrawal Upper GI bleed -resolved * Hemoglobin stable at 13.8 Elevated D-dimer: Decreasing without source of thrombosis Likely bronchitis more so than pneumonia secondary to Haemophilus influenza and streptococcal pneumonia Chronic Obesity Polysubstance abuse Asthma Plan: Continue with PT/OT consult Consult Dr. Graham in psychiatry. Pressures are mildly elevated. -Continue to monitor Continue DuoNeb to every 6 hours as needed Continue budesonide nebulizer Continue Bactrim DS for Haemophilus influenza and Streptococcus pneumonia Switch to prednisone in the morning visitor services assistant following DVT prophylaxis, Lovernox 40 mg daily Taking orally regular diet well FiO2 to keep SPO2 greater than 92% CBC, CMP, mag, Phos in the morning Patient will need to continue to get stronger and continue to clear mentally prior to discharge or may need skilled care or other rehab facility..
[2020-10-21] MEDS ORDERED: QUEtiapine 25 MG Tab PO SCH (21:00)
[2020-10-21] MEDS: Topiramate 25 MG Tab PO SCH (21:45)
[2020-10-21] MEDS: Melatonin 3 MG Tab PO PRN (21:45)
[2020-10-22] MEDS: methylPREDNISolone Sodium Succinate 40 MG/1 ML SDV IVPUSH SCH (03:04)
[2020-10-22] MEDS: Albuterol 0.083% 2.5 MG/3 ML Neb Soln NEB PRN (05:06)
[2020-10-22] MEDS: Pantoprazole 40 MG Tab.CR PO SCH (05:06)
[2020-10-22] MEDS ORDERED: predniSONE 20 MG Tab PO SCH (08:00)
[2020-10-22] MEDS: Nicotine 21 MG/24 Hr Patch TRDERM SCH (08:02)
[2020-10-22] MEDS: Enoxaparin 40 MG/0.4 ML Syringe SUBCUT SCH (08:07)
[2020-10-22] MEDS: Sulfamethoxazole/Trimethoprim 800-160 MG Tab PO SCH (08:08)
[2020-10-22] MEDS: Topiramate 25 MG Tab PO SCH (08:09)
[2020-10-22] MEDS: Budesonide 0.5 MG/2 ML Neb Susp NEB SCH (08:49)
[2020-10-22] MEDS ORDERED: Budesonide 0.5 MG/2 ML Neb Susp ONE (08:53)
--- NOTE | 2020-10-22 09:26 | PCM.PN ---
- General Info Date of Service: 10/22/20 Admission Dx/Problem (Free Text): Admission Diagnosis/Problem Admission Diagnosis/Problem Asthma with acute exacerbation Subjective Update: Patient continues to improve. He is ambulating on his own, has had a bowel movement, and is medically stable. He is off oxygen. He still has some sinus tachycardia. He did well with Topamax and Seroquel overnight. Patient slept well. He will have an appointment with Dr. Graham today. He is also planning on outpatient drug rehab. Functional Status: Reports: Pain Controlled - Review of Systems General: Reports: No Symptoms HEENT: Reports: No Symptoms Pulmonary: Reports: No Symptoms Cardiovascular: Reports: No Symptoms Gastrointestinal: Reports: No Symptoms Musculoskeletal: Reports: No Symptoms Neurological: Reports: No Symptoms Psychiatric: Reports: No Symptoms - Patient Data Vitals - Most Recent: Last Vital Signs Temp 97.1 F 10/22/20 08:00 Pulse 104 H 10/22/20 08:00 Resp 18 10/22/20 08:00 BP 155/84 H 10/22/20 08:00 Pulse Ox 96 10/22/20 08:50 Weight - Most Recent: 202 lb 6.4 oz I&O - Last 24 Hours: Intake & Output 10/21/20 10/22/20 10/22/20 22:59 06:59 14:59 Intake Total 700 320 Output Total 300 Balance 400 320 Lab Results Last 24 Hours: Laboratory Results - last 24 hr 10/15/20 10/20/20 10/22/20 Range/Units 21:30 02:41 05:22 WBC 12.60 H (4.23-9.07) K/mm3 RBC 5.40 (4.63-6.08) M/mm3 Hgb 16.3 D (13.7-17.5) gm/dl Hct 48.3 (40.1-51.0) % MCV 89.4 D (79.0-92.2) fl MCH 30.2 (25.7-32.2) pg MCHC 33.7 (32.2-35.5) g/dl RDW Std Deviation 40.8 (35.1-43.9) fL Plt Count 293 D (163-337) K/mm3 MPV 10.4 (9.4-12.3) fl Neut % (Auto) 77.1 H (34.0-67.9) % Lymph % (Auto) 13.7 L (21.8-53.1) % Parmer % (Auto) 6.4 (5.3-12.2) % Eos % (Auto) 0.1 L (0.8-7.0) Baso % (Auto) 0.1 (0.1-1.2) % Neut # (Auto) 9.71 H (1.78-5.38) K/mm3 Lymph # (Auto) 1.73 (1.32-3.57) K/mm3 Parmer # (Auto) 0.81 (0.30-0.82) K/mm3 Eos # (Auto) 0.01 L (0.04-0.54) K/mm3 Baso # (Auto) 0.01 (0.01-0.08) K/mm3 Manual Slide Review Normal smear Sodium (136-145) mEq/L Potassium (3.5-5.1) mEq/L Chloride (98-107) mEq/L Carbon Dioxide (21-32) mEq/L Anion Gap (5-15) BUN (7-18) mg/dL Creatinine (0.7-1.3) mg/dL Est Cr Clr Drug Dosing mL/min Estimated GFR (MDRD) (>60) mL/min BUN/Creatinine Ratio (14-18) Glucose (74-106) mg/dL POC Glucose 175 H (70-105) mg/dL Calcium (8.5-10.1) mg/dL Phosphorus (2.6-4.7) mg/dL Magnesium (1.8-2.4) mg/dl Total Bilirubin (0.2-1.0) mg/dL AST (15-37) U/L ALT (16-63) U/L Alkaline Phosphatase (46-116) U/L Total Protein (6.4-8.2) g/dl Albumin (3.4-5.0) g/dl Globulin gm/dL Albumin/Globulin Ratio (1-2) U Amphetam Cnfrm GC/MS 3291 U Amphetamine/Methamph >2577 Urine MDEA Positive Urine MDA Not detected Urine MDMA Screen Not detected 10/22/20 Range/Units 05:22 WBC (4.23-9.07) K/mm3 RBC (4.63-6.08) M/mm3 Hgb (13.7-17.5) gm/dl Hct (40.1-51.0) % MCV (79.0-92.2) fl MCH (25.7-32.2) pg MCHC (32.2-35.5) g/dl RDW Std Deviation (35.1-43.9) fL Plt Count (163-337) K/mm3 MPV (9.4-12.3) fl Neut % (Auto) (34.0-67.9) % Lymph % (Auto) (21.8-53.1) % Parmer % (Auto) (5.3-12.2) % Eos % (Auto) (0.8-7.0) Baso % (Auto) (0.1-1.2) % Neut # (Auto) (1.78-5.38) K/mm3 Lymph # (Auto) (1.32-3.57) K/mm3 Parmer # (Auto) (0.30-0.82) K/mm3 Eos # (Auto) (0.04-0.54) K/mm3 Baso # (Auto) (0.01-0.08) K/mm3 Manual Slide Review Sodium 141 (136-145) mEq/L Potassium 4.0 (3.5-5.1) mEq/L Chloride 106 (98-107) mEq/L Carbon Dioxide 23 (21-32) mEq/L Anion Gap 16.0 H (5-15) BUN 24 H (7-18) mg/dL Creatinine 1.0 (0.7-1.3) mg/dL Est Cr Clr Drug Dosing 116.40 mL/min Estimated GFR (MDRD) > 60 (>60) mL/min BUN/Creatinine Ratio 24.0 H (14-18) Glucose 108 H (74-106) mg/dL POC Glucose (70-105) mg/dL Calcium 9.1 (8.5-10.1) mg/dL Phosphorus 4.0 (2.6-4.7) mg/dL Magnesium 2.2 (1.8-2.4) mg/dl Total Bilirubin 0.6 (0.2-1.0) mg/dL AST 27 (15-37) U/L ALT 53 (16-63) U/L Alkaline Phosphatase 76 (46-116) U/L Total Protein 7.5 (6.4-8.2) g/dl Albumin 3.4 (3.4-5.0) g/dl Globulin 4.1 gm/dL Albumin/Globulin Ratio 0.8 L (1-2) U Amphetam Cnfrm GC/MS U Amphetamine/Methamph Urine MDEA Urine MDA Urine MDMA Screen Eliazar Results Last 24 Hours: Microbiology 10/14/20 19:39 Aerobic Blood Culture - Final Blood - Venous NO GROWTH AFTER 7 DAYS Anaerobic Blood Culture - Final NO GROWTH AFTER 7 DAYS 10/14/20 19:30 Aerobic Blood Culture - Final Blood - Venous - Lab Draw NO GROWTH AFTER 7 DAYS Anaerobic Blood Culture - Final NO GROWTH AFTER 7 DAYS Med Orders - Current: Current Medications Acetaminophen (Tylenol) 650 mg PO Q6H PRN PRN Reason: Pain/Fever Albuterol (Proventil Neb Soln) 2.5 mg NEB Q4H PRN PRN Reason: Shortness of Breath Last Admin: 10/22/20 05:06 Dose: 2.5 mg Documented by: Albuterol/Ipratropium (Duoneb 3.0-0.5 Mg/3 Ml) 3 ml NEB Q6HRRT PRN PRN Reason: Wheezing Budesonide (Pulmicort) 1 mg NEB BID [facility] Last Admin: 10/22/20 08:49 Dose: 1 mg Documented by: Calcium Chloride (Calcium Chloride 10%) 1 gm IVPUSH Q4H PRN PRN Reason: K>6 Last Admin: 10/15/20 14:44 Dose: 1 gm Documented by: Dextrose/Water (Dextrose 50% In Water) 50 ml IVPUSH ASDIRECTED [facility] Enoxaparin Sodium (Lovenox) 40 mg SUBCUT DAILY [facility] Last Admin: 10/22/20 08:07 Dose: Not Given Documented by: Fentanyl (Sublimaze) 50 mcg IVPUSH Q30M PRN PRN Reason: Pain Last Admin: 10/19/20 23:28 Dose: 50 mcg Documented by: Haloperidol Lactate (Haldol) 2 mg IVPUSH Q4H PRN PRN Reason: Withdrawal Symptoms Last Admin: 10/19/20 13:19 Dose: 2 mg Documented by: dexmedeTOMIDine in dextrose 5% (400 mcg/ Premix) 100 mls @ 0 mls/hr IV TITRATE YANI; Protocol Last Infusion: 10/20/20 06:45 Dose: 0 mls/hr Documented by: Lorazepam (Ativan) 1 mg IVPUSH Q30M PRN PRN Reason: Anxiety Last Admin: 10/20/20 22:32 Dose: 1 mg Documented by: Melatonin (Melatonin) 9 mg PO BEDTIME PRN PRN Reason: Sleep Last Admin: 10/21/20 21:45 Dose: 9 mg Documented by: Miscellaneous Information (Remove Patch) 1 ea TRDERM DAILY@1000 [facility] Last Admin: 10/21/20 09:22 Dose: 1 ea Documented by: Nicotine (Habitrol) 21 mg TRDERM DAILY [facility] Last Admin: 10/22/20 08:02 Dose: 21 mg Documented by: Pantoprazole Sodium (Protonix) 40 mg PO BIDAC [facility] Last Admin: 10/22/20 05:06 Dose: 40 mg Documented by: Prednisone (Prednisone) 40 mg PO WITHBREAKFAST [facility] Last Admin: 10/22/20 08:08 Dose: 40 mg Documented by: Quetiapine Fumarate (Seroquel) 25 mg PO BEDTIME [facility] Last Admin: 10/21/20 21:45 Dose: 25 mg Documented by: Sodium Chloride (Saline Flush) 10 ml FLUSH ASDIRECTED PRN PRN Reason: Keep Vein Open Last Admin: 10/19/20 20:47 Dose: 10 ml Documented by: Topiramate (Topamax) 25 mg PO BID [facility] Last Admin: 10/22/20 08:09 Dose: 25 mg Documented by: Trazodone HCl (Trazodone) 50 mg PO BEDTIME PRN PRN Reason: Sleep Trimethoprim/Sulfamethoxazole (Septra Ds) 1 tab PO BID [facility] Last Admin: 10/22/20 08:08 Dose: 1 tab Documented by: Discontinued Medications Acetaminophen (Tylenol) 650 mg PO NOW ONE Stop: 10/14/20 21:36 Last Admin: 10/14/20 22:23 Dose: Not Given Documented by: Albuterol (Proventil Neb Soln) Confirm Administered Dose 2.5 mg .ROUTE .STK-MED ONE Stop: 10/14/20 18:51 Last Admin: 10/14/20 18:57 Dose: Not Given Documented by: Albuterol (Proventil Neb Soln) 2.5 mg NEB ONETIME ONE Stop: 10/14/20 18:53 Last Admin: 10/14/20 18:55 Dose: 2.5 mg Documented by: Albuterol (Proventil Neb Soln) 2.5 mg NEB Q4HRRT YANI Last Admin: 10/16/20 05:34 Dose: 2.5 mg Documented by: Albuterol/Ipratropium (Duoneb 3.0-0.5 Mg/3 Ml) 3 ml NEB ONETIME ONE Stop: 10/14/20 19:14 Last Admin: 10/14/20 19:23 Dose: 3 ml Documented by: Albuterol/Ipratropium (Duoneb 3.0-0.5 Mg/3 Ml) 3 ml NEB STAT STA Stop: 10/15/20 05:17 Last Admin: 10/15/20 05:26 Dose: 3 ml Documented by: Albuterol/Ipratropium (Duoneb 3.0-0.5 Mg/3 Ml) 3 ml NEB STAT STA Stop: 10/15/20 06:36 Last Admin: 10/15/20 06:44 Dose: 3 ml Documented by: Albuterol/Ipratropium (Duoneb 3.0-0.5 Mg/3 Ml) 3 ml NEB Q6HRRT YANI Last Admin: 10/16/20 08:44 Dose: 3 ml Documented by: Albuterol/Ipratropium (Duoneb 3.0-0.5 Mg/3 Ml) 3 ml NEB Q4H YANI Last Admin: 10/20/20 12:15 Dose: 3 ml Documented by: Budesonide (Pulmicort) 1 mg NEB BIDRT [facility] Budesonide (Pulmicort) Confirm Administered Dose 0.5 mg .ROUTE .STK-MED ONE Stop: 10/22/20 08:54 Dexamethasone (Decadron) 6 mg IVPUSH Q24H YANI Dexamethasone (Decadron) 6 mg IVPUSH Q24H YANI Last Admin: 10/18/20 19:09 Dose: 6 mg Documented by: Dexmedetomidine HCl (Precedex) 0 mcg IV CONTINUOUS YANI; Protocol Diphenhydramine HCl (Benadryl) 50 mg IVPUSH ONETIME ONE Stop: 10/19/20 15:12 Last Admin: 10/19/20 15:34 Dose: 50 mg Documented by: Enalaprilat (Vasotec Iv) 0.625 mg IVPUSH Q6H PRN PRN Reason: Hypertension Last Admin: 10/15/20 11:22 Dose: 0.625 mg Documented by: Enalaprilat (Vasotec Iv) 1.25 mg IVPUSH Q6H PRN PRN Reason: Hypertension Enoxaparin Sodium (Lovenox) 40 mg SUBCUT Q12H [facility] Last Admin: 10/16/20 02:13 Dose: 40 mg Documented by: Enoxaparin Sodium (Lovenox) 100 mg SUBCUT BID [facility] Last Admin: 10/18/20 08:35 Dose: 100 mg Documented by: Enoxaparin Sodium (Lovenox) 60 mg SUBCUT ONETIME ONE Stop: 10/16/20 11:46 Last Admin: 10/16/20 11:46 Dose: 60 mg Documented by: Famotidine (Pepcid) 20 mg IVPUSH ONETIME ONE Stop: 10/15/20 20:50 Last Admin: 10/15/20 21:04 Dose: 20 mg Documented by: Famotidine (Pepcid) 20 mg IVPUSH BEDTIME [facility] Last Admin: 10/17/20 20:50 Dose: 20 mg Documented by: Haloperidol Lactate (Haldol) Confirm Administered Dose 5 mg .ROUTE .STK-MED ONE Stop: 10/15/20 09:41 Last Admin: 10/15/20 09:52 Dose: Not Given Documented by: Haloperidol Lactate (Haldol) 1 mg IVPUSH ONETIME ONE Stop: 10/15/20 09:45 Last Admin: 10/15/20 12:09 Dose: 1 mg Documented by: Haloperidol Lactate (Haldol) 1 mg IVPUSH ONETIME ONE Stop: 10/15/20 09:47 Last Admin: 10/15/20 09:46 Dose: 1 mg Documented by: Haloperidol Lactate (Haldol) Confirm Administered Dose 5 mg .ROUTE .STK-MED ONE Stop: 10/15/20 09:59 Last Admin: 10/15/20 12:17 Dose: Not Given Documented by: Haloperidol Lactate (Haldol) 2 mg IVPUSH ONETIME ONE Stop: 10/19/20 13:17 Last Admin: 10/19/20 13:28 Dose: 2 mg Documented by: Haloperidol Lactate (Haldol) 4 mg IVPUSH ONETIME ONE Stop: 10/19/20 14:01 Last Admin: 10/19/20 13:46 Dose: 4 mg Documented by: Haloperidol Lactate (Haldol) 8 mg IVPUSH ONETIME ONE Stop: 10/19/20 14:21 Last Admin: 10/19/20 15:03 Dose: 8 mg Documented by: Hydralazine HCl (Apresoline) 10 mg IVPUSH Q2H PRN PRN Reason: Hypertension Last Admin: 10/15/20 09:28 Dose: 10 mg Documented by: Hydralazine HCl (Apresoline) Confirm Administered Dose 20 mg .ROUTE .STK-MED ONE Stop: 10/15/20 10:48 Last Admin: 10/15/20 11:50 Dose: Not Given Documented by: Hydralazine HCl (Apresoline) 20 mg IVPUSH Q8H [facility] Last Admin: 10/15/20 13:52 Dose: Not Given Documented by: Hydralazine HCl (Apresoline) 10 mg IVPUSH ONETIME ONE Stop: 10/15/20 10:50 Last Admin: 10/15/20 10:49 Dose: 10 mg Documented by: Hydralazine HCl (Apresoline) 20 mg IVPUSH Q8H [facility] Last Admin: 10/15/20 15:54 Dose: Not Given Documented by: Hydralazine HCl (Apresoline) 20 mg IVPUSH Q8H PRN PRN Reason: Hypertension Hydralazine HCl (Apresoline) 10 mg IVPUSH Q8H PRN PRN Reason: Hypertension Sodium Chloride (Normal Saline) 1,000 mls @ 100 mls/hr IV ASDIRECTED [facility] Last Admin: 10/14/20 19:59 Dose: 100 mls/hr Documented by: Doxycycline Hyclate 100 mg/ (Sodium Chloride) 100 mls @ 100 mls/hr IV Q12H [facility] Last Admin: 10/16/20 08:31 Dose: 100 mls/hr Documented by: Magnesium Sulfate/Dextrose 1 (gm/ Premix) 100 mls @ 100 mls/hr IV ONETIME ONE Stop: 10/15/20 09:57 Last Admin: 10/15/20 09:15 Dose: 100 mls/hr Documented by: Propofol (Diprivan 100 Ml) Confirm Administered Dose 100 mls @ as directed .ROUTE .STK-MED ONE Stop: 10/15/20 10:04 Last Admin: 10/15/20 12:17 Dose: Not Given Documented by: Propofol (Diprivan 100 Ml) 100 mls @ 2.864 mls/hr IV TITRATE YANI; Protocol Last Titration: 10/19/20 09:25 Dose: 0 mcg/kg/min, 0 mls/hr Documented by: Dextrose/Sodium Chloride (Dextrose 5%-1/2 Ns) 1,000 mls @ 100 mls/hr IV ASDIRECTED YANI Last Infusion: 10/15/20 17:57 Dose: 100 mls/hr Documented by: Lorazepam 40 mg/ Dextrose/ (Water) 40 mls @ 1 mls/hr IV TITRATE YANI; Protocol Last Titration: 10/19/20 16:07 Dose: 0 mg/hr, 0 mls/hr Documented by: Lactated Ringer's (Ringers, Lactated) 1,000 mls @ 125 mls/hr IV ASDIRECTED YANI Stop: 10/16/20 03:01 Last Infusion: 10/16/20 03:00 Dose: 75 mls/hr Documented by: Lactated Ringer's (Ringers, Lactated) Confirm Administered Dose 1,000 mls @ as directed .ROUTE .STK-MED ONE Stop: 10/15/20 20:52 Last Admin: 10/15/20 20:58 Dose: Not Given Documented by: Lactated Ringer's (Ringers, Lactated) 250 mls @ 999 mls/hr IV ONETIME ONE Stop: 10/15/20 22:00 Last Admin: 10/15/20 21:45 Dose: 999 mls/hr Documented by: Lactated Ringer's (Ringers, Lactated) 1,000 mls @ 75 mls/hr IV ASDIRECTED YANI Last Infusion: 10/18/20 12:25 Dose: 125 mls/hr Documented by: Azithromycin 500 mg/ Sodium (Chloride) 250 mls @ 250 mls/hr IV Q24H YANI Last Admin: 10/18/20 10:59 Dose: 250 mls/hr Documented by: Ceftriaxone Sodium 2 gm/ (Sodium Chloride) 100 mls @ 200 mls/hr IV Q24H YANI Last Admin: 10/19/20 11:48 Dose: 200 mls/hr Documented by: Lactated Ringer's (Ringers, Lactated) 500 mls @ 999 mls/hr IV ONETIME ONE Stop: 10/16/20 18:33 Last Admin: 10/16/20 18:21 Dose: 999 mls/hr Documented by: Lactated Ringer's (Ringers, Lactated) 1,000 mls @ 125 mls/hr IV ASDIRECTED [facility] Last Admin: 10/19/20 06:42 Dose: 125 mls/hr Documented by: Dextrose/Sodium Chloride (Dextrose 5%-Normal Saline) 1,000 mls @ 125 mls/hr IV ASDIRECTED [facility] Last Admin: 10/20/20 02:15 Dose: 125 mls/hr Documented by: Insulin Human Regular (Humulin R) 5 unit IV ONETIME ONE Stop: 10/15/20 13:18 Last Admin: 10/15/20 14:01 Dose: 5 unit Documented by: Lorazepam (Ativan) 0.5 mg IVPUSH ONETIME ONE Stop: 10/14/20 18:54 Last Admin: 10/14/20 18:57 Dose: 0.5 mg Documented by: Lorazepam (Ativan) Confirm Administered Dose 2 mg .ROUTE .STK-MED ONE Stop: 10/14/20 18:54 Last Admin: 10/14/20 18:57 Dose: Not Given Documented by: Lorazepam (Ativan) 1 mg IVPUSH ONETIME STA Stop: 10/15/20 01:44 Last Admin: 10/15/20 02:01 Dose: 1 mg Documented by: Lorazepam (Ativan) 1 mg IVPUSH STAT STA Stop: 10/15/20 05:15 Last Admin: 10/15/20 05:25 Dose: 1 mg Documented by: Lorazepam (Ativan) Confirm Administered Dose 2 mg .ROUTE .STK-MED ONE Stop: 10/15/20 05:20 Last Admin: 10/15/20 05:26 Dose: Not Given Documented by: Lorazepam (Ativan) 1 mg IVPUSH STAT STA Stop: 10/15/20 06:35 Last Admin: 10/15/20 06:52 Dose: 1 mg Documented by: Lorazepam (Ativan) 0 mg IVPUSH Q1H PRN; Protocol PRN Reason: Withdrawal Symptoms Last Admin: 10/15/20 08:53 Dose: 1 mg Documented by: Lorazepam (Ativan) 1 mg IVPUSH Q4H PRN PRN Reason: Anxiety Last Admin: 10/19/20 10:00 Dose: 1 mg Documented by: Lorazepam (Ativan) 2 mg IVPUSH ONETIME ONE Stop: 10/15/20 12:13 Last Admin: 10/15/20 12:15 Dose: 2 mg Documented by: Lorazepam (Ativan) Confirm Administered Dose 2 mg .ROUTE .STK-MED ONE Stop: 10/15/20 12:15 Last Admin: 10/15/20 12:32 Dose: Not Given Documented by: Lorazepam (Ativan) Confirm Administered Dose 2 mg .ROUTE .STK-MED ONE Stop: 10/15/20 12:20 Last Admin: 10/15/20 12:32 Dose: Not Given Documented by: Lorazepam (Ativan) 2 mg IVPUSH NOW STA Stop: 10/15/20 12:21 Last Admin: 10/15/20 12:20 Dose: 2 mg Documented by: Lorazepam (Ativan) 1 mg IVPUSH NOW STA Stop: 10/15/20 13:06 Last Admin: 10/15/20 13:05 Dose: 1 mg Documented by: Lorazepam (Ativan) 2 mg IVPUSH ONETIME YANI Stop: 10/19/20 23:00 Last Admin: 10/19/20 16:09 Dose: 2 mg Documented by: Lorazepam (Ativan) Confirm Administered Dose 2 mg .ROUTE .STK-MED ONE Stop: 10/19/20 16:02 Last Admin: 10/19/20 16:47 Dose: Not Given Documented by: Methylprednisolone Sodium Succinate (Solu-Medrol) 125 mg IVPUSH ONETIME ONE Stop: 10/14/20 18:54 Last Admin: 10/14/20 18:58 Dose: 125 mg Documented by: Methylprednisolone Sodium Succinate (Solu-Medrol) Confirm Administered Dose 125 mg .ROUTE .STK-MED ONE Stop: 10/14/20 18:54 Last Admin: 10/14/20 18:57 Dose: Not Given Documented by: Methylprednisolone Sodium Succinate (Solu-Medrol) 125 mg IVPUSH Q6H [facility] Last Admin: 10/16/20 11:07 Dose: 125 mg Documented by: Methylprednisolone Sodium Succinate (Solu-Medrol) 40 mg IVPUSH Q8H [facility] Last Admin: 10/22/20 03:04 Dose: 40 mg Documented by: Metoprolol Tartrate (Lopressor) 5 mg IVPUSH Q4H PRN PRN Reason: heart rate >110 Last Admin: 10/20/20 08:48 Dose: 5 mg Documented by: Midazolam HCl (Versed 1 Mg/Ml) 10 mg .ROUTE .STK-MED ONE Stop: 10/15/20 13:01 Midazolam HCl (Versed 5 Mg/Ml) 10 mg IV Q15M PRN PRN Reason: Agitation Last Admin: 10/19/20 13:14 Dose: 10 mg Documented by: Morphine Sulfate (Morphine) 1 mg IVPUSH STAT STA Stop: 10/15/20 05:13 Last Admin: 10/15/20 05:20 Dose: 1 mg Documented by: Morphine Sulfate (Morphine) Confirm Administered Dose 2 mg .ROUTE .STK-MED ONE Stop: 10/15/20 05:19 Last Admin: 10/15/20 05:26 Dose: Not Given Documented by: Morphine Sulfate (Morphine) 1 mg IVPUSH STAT STA Stop: 10/15/20 06:35 Last Admin: 10/15/20 06:51 Dose: 1 mg Documented by: Morphine Sulfate (Morphine) Confirm Administered Dose 2 mg .ROUTE .STK-MED ONE Stop: 10/15/20 08:01 Last Admin: 10/15/20 09:10 Dose: Not Given Documented by: Morphine Sulfate (Morphine) 2 mg IVPUSH ONETIME ONE Stop: 10/15/20 08:05 Last Admin: 10/15/20 08:04 Dose: 2 mg Documented by: Morphine Sulfate (Morphine) 1 mg IVPUSH Q4H PRN PRN Reason: Pain (mild 1-3) Pantoprazole Sodium (Protonix Iv) 40 mg IVPUSH BID [facility] Last Admin: 10/20/20 08:30 Dose: 40 mg Documented by: Propofol (Diprivan 20 Ml) 200 mg .ROUTE .STK-MED ONE Stop: 10/15/20 13:01 Propofol (Diprivan 20 Ml) 200 mg .ROUTE .STK-MED ONE Stop: 10/15/20 13:01 Racepinephrine (S-2 2.25%) 0.5 ml NEB ONETIME [facility] Last Admin: 10/19/20 09:27 Dose: 0.5 ml Documented by: Rocuronium [place] (Zemuron) 50 mg .ROUTE .STK-MED ONE Stop: 10/15/20 13:01 Rocuronium [place] (Zemuron) 50 mg .ROUTE .STK-MED ONE Stop: 10/15/20 13:01 Sodium Chloride (Sodium Chloride 0.9%) 3 ml INH ASDIRECTED PRN PRN Reason: mix with racepinephrine neb Sodium Polystyrene Sulfonate (Kayexalate) 45 gm PO Q8H YANI Stop: 10/15/20 22:01 Last Admin: 10/15/20 21:50 Dose: Not Given Documented by: Sodium Polystyrene Sulfonate (Kayexalate) 45 gm PO ONETIME ONE Stop: 10/16/20 19:01 Last Admin: 10/16/20 18:44 Dose: 45 gm Documented by: Succinylcholine Chloride (Quelicin) 200 mg .ROUTE .STK-MED ONE Stop: 10/15/20 13:01 Trazodone HCl (Trazodone) 50 mg PO ONETIME PRN PRN Reason: Sleep Last Admin: 10/20/20 20:43 Dose: 50 mg Documented by: - Exam Quality Assessment: No: Supplemental Oxygen General: Alert, Oriented HEENT: Mucous Membr. Moist/[place]. No: Pupils Equal (Left pupil dilated more than right) Neck: Supple Lungs: Clear to Auscultation, Normal Respiratory Effort Cardiovascular: Regular Rate, Regular Rhythm GI/Abdominal Exam: Normal Bowel Sounds, Soft, Non-Tender, No Organomegaly, No Distention, No Abnormal Bruit, No Mass Extremities: Normal Inspection, Normal Range of Motion, Non-Tender, No Pedal Edema, Normal Capillary Refill Skin: Warm, Dry, Intact Psy/Mental Status: Alert, Normal Affect, Normal Mood - Patient Data Lab Results Last 24 hrs: Laboratory Results - last 24 hr 10/15/20 10/20/20 10/22/20 Range/Units 21:30 02:41 05:22 WBC 12.60 H (4.23-9.07) K/mm3 RBC 5.40 (4.63-6.08) M/mm3 Hgb 16.3 D (13.7-17.5) gm/dl Hct 48.3 (40.1-51.0) % MCV 89.4 D (79.0-92.2) fl MCH 30.2 (25.7-32.2) pg MCHC 33.7 (32.2-35.5) g/dl RDW Std Deviation 40.8 (35.1-43.9) fL Plt Count 293 D (163-337) K/mm3 MPV 10.4 (9.4-12.3) fl Neut % (Auto) 77.1 H (34.0-67.9) % Lymph % (Auto) 13.7 L (21.8-53.1) % Parmer % (Auto) 6.4 (5.3-12.2) % Eos % (Auto) 0.1 L (0.8-7.0) Baso % (Auto) 0.1 (0.1-1.2) % Neut # (Auto) 9.71 H (1.78-5.38) K/mm3 Lymph # (Auto) 1.73 (1.32-3.57) K/mm3 Parmer # (Auto) 0.81 (0.30-0.82) K/mm3 Eos # (Auto) 0.01 L (0.04-0.54) K/mm3 Baso # (Auto) 0.01 (0.01-0.08) K/mm3 Manual Slide Review Normal smear Sodium (136-145) mEq/L Potassium (3.5-5.1) mEq/L Chloride (98-107) mEq/L Carbon Dioxide (21-32) mEq/L Anion Gap (5-15) BUN (7-18) mg/dL Creatinine (0.7-1.3) mg/dL Est Cr Clr Drug Dosing mL/min Estimated GFR (MDRD) (>60) mL/min BUN/Creatinine Ratio (14-18) Glucose (74-106) mg/dL POC Glucose 175 H (70-105) mg/dL Calcium (8.5-10.1) mg/dL Phosphorus (2.6-4.7) mg/dL Magnesium (1.8-2.4) mg/dl Total Bilirubin (0.2-1.0) mg/dL AST (15-37) U/L ALT (16-63) U/L Alkaline Phosphatase (46-116) U/L Total Protein (6.4-8.2) g/dl Albumin (3.4-5.0) g/dl Globulin gm/dL Albumin/Globulin Ratio (1-2) U Amphetam Cnfrm GC/MS 3291 U Amphetamine/Methamph >2577 Urine MDEA Positive Urine MDA Not detected Urine MDMA Screen Not detected 10/22/20 Range/Units 05:22 WBC (4.23-9.07) K/mm3 RBC (4.63-6.08) M/mm3 Hgb (13.7-17.5) gm/dl Hct (40.1-51.0) % MCV (79.0-92.2) fl MCH (25.7-32.2) pg MCHC (32.2-35.5) g/dl RDW Std Deviation (35.1-43.9) fL Plt Count (163-337) K/mm3 MPV (9.4-12.3) fl Neut % (Auto) (34.0-67.9) % Lymph % (Auto) (21.8-53.1) % Parmer % (Auto) (5.3-12.2) % Eos % (Auto) (0.8-7.0) Baso % (Auto) (0.1-1.2) % Neut # (Auto) (1.78-5.38) K/mm3 Lymph # (Auto) (1.32-3.57) K/mm3 Parmer # (Auto) (0.30-0.82) K/mm3 Eos # (Auto) (0.04-0.54) K/mm3 Baso # (Auto) (0.01-0.08) K/mm3 Manual Slide Review Sodium 141 (136-145) mEq/L Potassium 4.0 (3.5-5.1) mEq/L Chloride 106 (98-107) mEq/L Carbon Dioxide 23 (21-32) mEq/L Anion Gap 16.0 H (5-15) BUN 24 H (7-18) mg/dL Creatinine 1.0 (0.7-1.3) mg/dL Est Cr Clr Drug Dosing 116.40 mL/min Estimated GFR (MDRD) > 60 (>60) mL/min BUN/Creatinine Ratio 24.0 H (14-18) Glucose 108 H (74-106) mg/dL POC Glucose (70-105) mg/dL Calcium 9.1 (8.5-10.1) mg/dL Phosphorus 4.0 (2.6-4.7) mg/dL Magnesium 2.2 (1.8-2.4) mg/dl Total Bilirubin 0.6 (0.2-1.0) mg/dL AST 27 (15-37) U/L ALT 53 (16-63) U/L Alkaline Phosphatase 76 (46-116) U/L Total Protein 7.5 (6.4-8.2) g/dl Albumin 3.4 (3.4-5.0) g/dl Globulin 4.1 gm/dL Albumin/Globulin Ratio 0.8 L (1-2) U Amphetam Cnfrm GC/MS U Amphetamine/Methamph Urine MDEA Urine MDA Urine MDMA Screen Result Diagrams: 10/22/20 05:22 10/22/20 05:22 Eliazar Results Last 24 hrs: Microbiology 10/14/20 19:39 Aerobic Blood Culture - Final Blood - Venous NO GROWTH AFTER 7 DAYS Anaerobic Blood Culture - Final NO GROWTH AFTER 7 DAYS 10/14/20 19:30 Aerobic Blood Culture - Final Blood - Venous - Lab Draw NO GROWTH AFTER 7 DAYS Anaerobic Blood Culture - Final NO GROWTH AFTER 7 DAYS Sepsis Event Note - Evaluation Sepsis Screening Result: No Definite Risk - Focused Exam Vital Signs: Vital Signs Temp Pulse Resp BP Pulse Ox Pulse Ox 10/22/20 08:50 96 10/22/20 08:00 97.1 F 104 H 18 155/84 H 95 10/22/20 04:00 97.2 F 14 141/72 H 96 10/22/20 00:00 98.2 F 12 148/85 H 94 L 10/21/20 21:20 91 L - Problem List & Annotations (1) Marijuana use SNOMED Code(s): 345613836 Code(s): F12.90 - CANNABIS USE, UNSPECIFIED, UNCOMPLICATED Status: Acute Current Visit: Yes (2) Methamphetamine abuse SNOMED Code(s): 365391699 Code(s): F15.10 - OTHER STIMULANT ABUSE, UNCOMPLICATED Status: Acute Cur rent Visit: Yes (3) Status asthmaticus SNOMED Code(s): 679390186 Code(s): J45.902 - UNSPECIFIED ASTHMA WITH STATUS ASTHMATICUS Status: Acute Current Visit: Yes (4) Respiratory failure SNOMED Code(s): 824181823 Code(s): J96.90 - RESPIRATORY FAILURE, UNSP, UNSP W HYPOXIA OR HYPERCAPNIA Status: Acute Current Visit: Yes - Problem List Review Problem List Initiated/Reviewed/Updated: Yes - My Orders Last 24 Hours: My Active Orders 10/21/20 21:00 QUEtiapine [SEROqueL] 25 mg PO BEDTIME Topiramate [Topamax] 25 mg PO BID 10/22/20 08:00 predniSONE 40 mg PO WITHBREAKFAST 10/22/20 08:29 Admission Status [Patient Status] [ADT] Routine 10/22/20 08:30 Activity as Tolerated [RC] .Routine - Plan Plan:: 30 year old male with post hypoxemic respiratory failure Haemophilus influenza and pneumococcal pneumonia were both sensitive to Bactrim. Pneumococcal was mixed resistant/intermediate to Rocephin. Chest x-ray never did show any infiltrates with this very well could be from bronchitis. Positive for marijuana and methamphetamine on admission. Stated that the marijuana had to have been laced, he denied active use of methamphetamine. Patient had successful extubation yesterday and is continuing to improve in mental status. Impression: Post hypoxemic respiratory distress-subsequent failure, * S/P extubation day 1 * Titrated off of O2 and now is on room air Methamphetamine positive, query inhalation eg "Gerson" cf IDU. Patient is known to use illicit drugs in the past. Elevated blood pressure without diagnosis of hypertension possibly secondary to methamphetamine withdrawal Methamphetamine withdrawal Upper GI bleed -resolved * Hemoglobin stable at 13.8 Elevated D-dimer: Decreasing without source of thrombosis Likely bronchitis more so than pneumonia secondary to Haemophilus influenza and streptococcal pneumonia * White count elevated today likely secondary to Solu-Medrol. Patient shows no signs of active infection. Appropriate antibiotic coverage for Haemophilus influenza and streptococcal pneumonia is being given. Chronic Obesity Polysubstance abuse Asthma Plan: Continue with PT/OT consult Consult Dr. Graham in psychiatry this morning. Pressures are mildly elevated. -Continue to monitor Continue DuoNeb to every 6 hours as needed Continue budesonide nebulizer Continue Bactrim DS for Haemophilus influenza and Streptococcus pneumonia Switched from Solu-Medrol to prednisone this morning 40 mg daily visitor services specialist following DVT prophylaxis, Lovernox 40 mg daily Taking orally regular diet well Plan discharge when stable to his brother's house. He may be discharged later today.
[2020-10-22] MEDS: Remove AND REPLACE NICOTINE Patch TRDERM SCH (10:51)
--- NOTE | 2020-10-22 14:56 | PCM.DCSUM1 ---
Discharge Summary - Hospital Course HPI Initial Comments: 30 year old male with reportedly history of asthma presents with SOB at rest; states that he used the Albuterol INH up to 80 times relief. Does not appear that he has been seen by a pulmonary doctor, he denies PFTs. No history of intubation is voiced. The patient was seen by the T provider at 0600 hour on the day of admission. This was to evaluate the SOB after called by the charge nurse. The patient was anxious, and removed his O2 mask frequently. RT gave Neb treatments as ordered. He responded to therapy, but later decompensated He was subsequently moved to the ICU for acute respiratory distress. He has acute hypercapnic respiratory failure. The patient was initially sent to the [facility] ED after he was seen by a PCP in his office. He had been receiving neb treatment in the ED without significant response. He tested positive presumptively for methamphetamines, Marijuana. Discussion with the patient's sibling revealed that he has a longstanding history of substance abuse. He declines therapy for any psychiatric difficulties and/or substance abuse in the past. The patient was urgently intubated by the [employer] after unsuccessful trial of BiPAP. Unfortunately he was unable to tolerate the mask. He required a significant amount of Propofol, Precedex and later Ativan after intubation. Additionally Rocuronium was given at least twice d/t incomplete response presumed to the adrenergic surge d/t Methamphetamine withdrawal. The patient had signs of agitation presumed withdrawal of Methamphetamines. He was empirically started on steroids for acute exacerbation of COPD/asthma as well as Doxcycline for atypical pneumonia. Current labs did not support PNA, however the inciting trigger for the asthmatic event has yet to be determined. The patient has tested negative for SARS-COV-2, and Mycoplasma. He denied f ever, chills, sore throat, change in appetite, sense of taste/smell. But did notice SOB, wheezing. He was sent to the ED after seen by his PCP 30 year old male with acute hypoxemic respiratory distress, presumptively civered for atypical pneumonia with an ATB. the patient tested positive for marijuana and methamphetamine. Stated that the marijuana had to have been laced, he denied active use of methamphetamine. Impression: Acute hypoxemic respiratory distress-subsequent failure, S/P intubation after failed BiPAP Methamphetamine positive, query inhalation eg "Gerson" cf IDU Hypertensive Methamphetamine withdrawal Chronic Obesity Polysubstance abuse Asthma Plan: HTN meds: scheduled/prn hydralazine; Vasotec; Lopressor Doxycycline 100 mg Q12 H Nebs: Duonebs/Albuterol, scheduled/prn DVT prophylaxis, Lovernox 40 mg Q 12 H NPO except meds PCXR scheduled or prn pending clinical course MV, adjust VT/PEEP/FiO2 per response, keep O2 sat>92% AM labs re: sepsis/COVID-19 COVID-19 precaution s/p intubation Diagnosis: Stroke: No - Discharge Data Discharge Date: 10/22/20 Discharge Disposition: Home, Self-Care 01 Condition: Good - Referral to Home Health Primary Care Physician: Tenzin Rodriguez MD - Discharge Diagnosis/Problem(s) (1) Marijuana use SNOMED Code(s): 627312721 ICD Code: F12.90 - CANNABIS USE, UNSPECIFIED, UNCOMPLICATED Status: Acute Current Visit: Yes (2) Methamphetamine abuse SNOMED Code(s): 934422030 ICD Code: F15.10 - OTHER STIMULANT ABUSE, UNCOMPLICATED Status: Acute Current Visit: Yes (3) Status asthmaticus SNOMED Code(s): 063711353 ICD Code: J45.902 - UNSPECIFIED ASTHMA WITH STATUS ASTHMATICUS Status: Acute Current Visit: Yes (4) Respiratory failure SNOMED Code(s): 671375419 ICD Code: J96.90 - RESPIRATORY FAILURE, UNSP, UNSP W HYPOXIA OR HYPERCAPNIA Status: Acute Current Visit: Yes - Patient Summary/Data Consults: Consultations 10/20/20 10:19 Consult to Physical Therapy [PT Evaluation and Treatment] [CONS] Routine 10/20/20 10:20 Consult to Occupational Therapy [OT Evaluation and Treatment] [CONS] Routine 10/21/20 08:00 Consult to Physician [CONS] Routine Hospital Course: Patient was intubated in the emergency department as stated above. He did have a significantly elevated D-dimer that was never found to have a cause. Initially he was placed on Lovenox 1 mg/kg twice daily, but then he did have some brown/black OG fluids. It was concerning for blood so we decreased his Lovenox back to 40 mg daily for DVT prophylaxis. At that time we added Protonix 40 mg twice daily IV. On day 5 of hospitalization patient was successfully extubated. Patient then started physical therapy and occupational rehab. He was placed on Topamax and Seroquel and had a consult with Dr. Graham. Lung symptoms continue to improve throughout the hospital stay and he was off oxygen 2 days prior to discharge. He will be sent home on Symbicort, albuterol, and 2 more days of prednisone. Haemophilus influenza and pneumococcal pneumonia grew out of his sputum, but his x-rays and CT of his chest never showed an inf iltrate. This is likely secondary to either colonization or bronchitis, since he is a chronic smoker, and he was treated with Bactrim which both bacterium were sensitive to. Patient is being discharged to his brother's home and his brother assures me he will make sure he follows up with drug treatment. - Patient Instructions Diet: Usual Diet as Tolerated, No Alcoholic Beverages Other/Special Instructions: Follow-up with your primary care provider within 1 week. Also, follow-up with AA or other addiction service. - Discharge Plan *PRESCRIPTION DRUG MONITORING PROGRAM REVIEWED*: Not Applicable *COPY OF PRESCRIPTION DRUG MONITORING REPORT IN PATIENT MERRY: Not Applicable Prescriptions/Med Rec: Fluticasone Propion/Salmeterol [Advair 250-50 Diskus] 1 inh INH BID #1 blister Nicotine [Habitrol] 21 mg TRDERM DAILY #30 patch Melatonin 9 mg PO BEDTIME PRN #90 tablet PRN Reason: Sleep predniSONE 40 mg PO WITHBREAKFAST #2 tablet Pantoprazole [ProTONIX] 40 mg PO BIDAC #60 tab.cr Sulfamethoxazole/Trimethoprim [Septra DS] 1 tab PO BID #6 tablet QUEtiapine [SEROquel] 25 mg PO BEDTIME #30 tablet Topiramate [Topamax] 25 mg PO BID #60 tablet Home Medications: Home Meds Albuterol [Proventil HFA] 1 puff INH Q4H PRN #1 inhaler 10/04/19 [Rx] Fluticasone Propion/Salmeterol [Advair 250-50 Diskus] 1 inh INH BID #1 blister 10/22/20 [Rx] Melatonin 9 mg PO BEDTIME PRN #90 tablet 10/22/20 [Rx] Nicotine [Habitrol] 21 mg TRDERM DAILY #30 patch 10/22/20 [Rx] Pantoprazole [ProTONIX] 40 mg PO BIDAC #60 tab.cr 10/22/20 [Rx] QUEtiapine [SEROquel] 25 mg PO BEDTIME #30 tablet 10/22/20 [Rx] Sulfamethoxazole/Trimethoprim [Septra DS] 1 tab PO BID #6 tablet 10/22/20 [Rx] Topiramate [Topamax] 25 mg PO BID #60 tablet 10/22/20 [Rx] predniSONE 40 mg PO WITHBREAKFAST #2 tablet 10/22/20 [Rx] Oxygen Therapy Mode: Room Air Patient Handouts: Sepsis, Diagnosis, Adult, Asthma Attack, Steps to Quit Smoking Forms: ED Department Discharge Referrals: Aden Graham MD [Physician] - 11/09/20 12:00 pm (Tele psy., Dr. Graham office will contact you before about for the information to log in.) Tenzin Rodriguez MD [Primary Care Provider] - 10/28/20 11:00 am (Please arrive at 10:45 for check in and appt. is at 11:00) - Discharge Summary/Plan Comment DC Time >30 min.: Yes - Patient Data Vitals - Most Recent: Last Vital Signs Temp 97.5 F 10/22/20 12:00 Pulse 104 H 10/22/20 08:00 Resp 18 10/22/20 12:00 BP 131/90 10/22/20 12:00 Pulse Ox 97 10/22/20 12:00 Weight - Most Recent: 202 lb 6.4 oz I&O - Last 24 hours: Intake & Output 10/21/20 10/22/20 10/22/20 22:59 06:59 14:59 Intake Total 700 320 Output Total 300 Balance 400 320 Lab Results - Last 24 hrs: Laboratory Results - last 24 hr 10/20/20 10/22/20 10/22/20 Range/Units 02:41 05:22 05:22 WBC 12.60 H (4.23-9.07) K/mm3 RBC 5.40 (4.63-6.08) M/mm3 Hgb 16.3 D (13.7-17.5) gm/dl Hct 48.3 (40.1-51.0) % MCV 89.4 D (79.0-92.2) fl MCH 30.2 (25.7-32.2) pg MCHC 33.7 (32.2-35.5) g/dl RDW Std Deviation 40.8 (35.1-43.9) fL Plt Count 293 D (163-337) K/mm3 MPV 10.4 (9.4-12.3) fl Neut % (Auto) 77.1 H (34.0-67.9) % Lymph % (Auto) 13.7 L (21.8-53.1) % [place] % (Auto) 6.4 (5.3-12.2) % Eos % (Auto) 0.1 L (0.8-7.0) Baso % (Auto) 0.1 (0.1-1.2) % Neut # (Auto) 9.71 H (1.78-5.38) K/mm3 Lymph # (Auto) 1.73 (1.32-3.57) K/mm3 [place] # (Auto) 0.81 (0.30-0.82) K/mm3 Eos # (Auto) 0.01 L (0.04-0.54) K/mm3 Baso # (Auto) 0.01 (0.01-0.08) K/mm3 Manual Slide Review Normal smear Sodium 141 (136-145) mEq/L Potassium 4.0 (3.5-5.1) mEq/L Chloride 106 (98-107) mEq/L Carbon Dioxide 23 (21-32) mEq/L Anion Gap 16.0 H (5-15) BUN 24 H (7-18) mg/dL Creatinine 1.0 (0.7-1.3) mg/dL Est Cr Clr Drug Dosing 116.40 mL/min Estimated GFR (MDRD) > 60 (>60) mL/min BUN/Creatinine Ratio 24.0 H (14-18) Glucose 108 H (74-106) mg/dL POC Glucose 175 H (70-105) mg/dL Calcium 9.1 (8.5-10.1) mg/dL Phosphorus 4.0 (2.6-4.7) mg/dL Magnesium 2.2 (1.8-2.4) mg/dl Total Bilirubin 0.6 (0.2-1.0) mg/dL AST 27 (15-37) U/L ALT 53 (16-63) U/L Alkaline Phosphatase 76 (46-116) U/L Total Protein 7.5 (6.4-8.2) g/dl Albumin 3.4 (3.4-5.0) g/dl Globulin 4.1 gm/dL Albumin/Globulin Ratio 0.8 L (1-2) SAL Results - Last 24 hrs: Microbiology 10/14/20 19:39 Aerobic Blood Culture - Final Blood - Venous NO GROWTH AFTER 7 DAYS Anaerobic Blood Culture - Final NO GROWTH AFTER 7 DAYS 10/14/20 19:30 Aerobic Blood Culture - Final Blood - Venous - Lab Draw NO GROWTH AFTER 7 DAYS Anaerobic Blood Culture - Final NO GROWTH AFTER 7 DAYS Med Orders - Current: Current Medications Acetaminophen (Tylenol) 650 mg PO Q6H PRN PRN Reason: Pain/Fever Albuterol (Proventil Neb Soln) 2.5 mg NEB Q4H PRN PRN Reason: Shortness of Breath Last Admin: 10/22/20 05:06 Dose: 2.5 mg Documented by: Albuterol/Ipratropium (Duoneb 3.0-0.5 Mg/3 Ml) 3 ml NEB Q6HRRT PRN PRN Reason: Wheezing Budesonide (Pulmicort) 1 mg NEB BID [facility] Last Admin: 10/22/20 08:49 Dose: 1 mg Documented by: Calcium Chloride (Calcium Chloride 10%) 1 gm IVPUSH Q4H PRN PRN Reason: K>6 Last Admin: 10/15/20 14:44 Dose: 1 gm Documented by: Dextrose/Water (Dextrose 50% In Water) 50 ml IVPUSH ASDIRECTED [facility] Enoxaparin Sodium (Lovenox) 40 mg SUBCUT DAILY [facility] Last Admin: 10/22/20 08:07 Dose: Not Given Documented by: Fentanyl (Sublimaze) 50 mcg IVPUSH Q30M PRN PRN Reason: Pain Last Admin: 10/19/20 23:28 Dose: 50 mcg Documented by: Haloperidol Lactate (Haldol) 2 mg IVPUSH Q4H PRN PRN Reason: Withdrawal Symptoms Last Admin: 10/19/20 13:19 Dose: 2 mg Documented by: dexmedeTOMIDine in dextrose 5% (400 mcg/ Premix) 100 mls @ 0 mls/hr IV TITRATE YANI; Protocol Last Infusion: 10/20/20 06:45 Dose: 0 mls/hr Documented by: Lorazepam (Ativan) 1 mg IVPUSH Q30M PRN PRN Reason: Anxiety Last Admin: 10/20/20 22:32 Dose: 1 mg Documented by: Melatonin (Melatonin) 9 mg PO BEDTIME PRN PRN Reason: Sleep Last Admin: 10/21/20 21:45 Dose: 9 mg Documented by: Miscellaneous Information (Remove Patch) 1 ea TRDERM DAILY@1000 [facility] Last Admin: 10/22/20 10:51 Dose: Not Given Documented by: Nicotine (Habitrol) 21 mg TRDERM DAILY [facility] Last Admin: 10/22/20 08:02 Dose: 21 mg Documented by: Pantoprazole Sodium (Protonix) 40 mg PO BIDAC [facility] Last Admin: 10/22/20 05:06 Dose: 40 mg Documented by: Prednisone (Prednisone) 40 mg PO WITHBREAKFAST [facility] Last Admin: 10/22/20 08:08 Dose: 40 mg Documented by: Quetiapine Fumarate (Seroquel) 25 mg PO BEDTIME [facility] Last Admin: 10/21/20 21:45 Dose: 25 mg Documented by: Sodium Chloride (Saline Flush) 10 ml FLUSH ASDIRECTED PRN PRN Reason: Keep Vein Open Last Admin: 10/19/20 20:47 Dose: 10 ml Documented by: Topiramate (Topamax) 25 mg PO BID [facility] Last Admin: 10/22/20 08:09 Dose: 25 mg Documented by: Trimethoprim/Sulfamethoxazole (Septra Ds) 1 tab PO BID [facility] Last Admin: 10/22/20 08:08 Dose: 1 tab Documented by: Discontinued Medications Acetaminophen (Tylenol) 650 mg PO NOW ONE Stop: 10/14/20 21:36 Last Admin: 10/14/20 22:23 Dose: Not Given Documented by: Albuterol (Proventil Neb Soln) Confirm Administered Dose 2.5 mg .ROUTE .STK-MED ONE Stop: 10/14/20 18:51 Last Admin: 10/14/20 18:57 Dose: Not Given Documented by: Albuterol (Proventil Neb Soln) 2.5 mg NEB ONETIME ONE Stop: 10/14/20 18:53 Last Admin: 10/14/20 18:55 Dose: 2.5 mg Documented by: Albuterol (Proventil Neb Soln) 2.5 mg NEB Q4HRRT [facility] Last Admin: 10/16/20 05:34 Dose: 2.5 mg Documented by: Albuterol/Ipratropium (Duoneb 3.0-0.5 Mg/3 Ml) 3 ml NEB ONETIME ONE Stop: 10/14/20 19:14 Last Admin: 10/14/20 19:23 Dose: 3 ml Documented by: Albuterol/Ipratropium (Duoneb 3.0-0.5 Mg/3 Ml) 3 ml NEB STAT STA Stop: 10/15/20 05:17 Last Admin: 10/15/20 05:26 Dose: 3 ml Documented by: Albuterol/Ipratropium (Duoneb 3.0-0.5 Mg/3 Ml) 3 ml NEB STAT STA Stop: 10/15/20 06:36 Last Admin: 10/15/20 06:44 Dose: 3 ml Documented by: Albuterol/Ipratropium (Duoneb 3.0-0.5 Mg/3 Ml) 3 ml NEB Q6HRRT YANI Last Admin: 10/16/20 08:44 Dose: 3 ml Documented by: Albuterol/Ipratropium (Duoneb 3.0-0.5 Mg/3 Ml) 3 ml NEB Q4H [facility] Last Admin: 10/20/20 12:15 Dose: 3 ml Documented by: Budesonide (Pulmicort) 1 mg NEB BIDRT [facility]ANI Budesonide (Pulmicort) Confirm Administered Dose 0.5 mg .ROUTE .STK-MED ONE Stop: 10/22/20 08:54 Last Admin: 10/22/20 09:26 Dose: Not Given Documented by: Dexamethasone (Decadron) 6 mg IVPUSH Q24H YANI Dexamethasone (Decadron) 6 mg IVPUSH Q24H [facility] Last Admin: 10/18/20 19:09 Dose: 6 mg Documented by: Dexmedetomidine HCl (Precedex) 0 mcg IV CONTINUOUS YANI; Protocol Diphenhydramine HCl (Benadryl) 50 mg IVPUSH ONETIME ONE Stop: 10/19/20 15:12 Last Admin: 10/19/20 15:34 Dose: 50 mg Documented by: Enalaprilat (Vasotec Iv) 0.625 mg IVPUSH Q6H PRN PRN Reason: Hypertension Last Admin: 10/15/20 11:22 Dose: 0.625 mg Documented by: Enalaprilat (Vasotec Iv) 1.25 mg IVPUSH Q6H PRN PRN Reason: Hypertension Enoxaparin Sodium (Lovenox) 40 mg SUBCUT Q12H [facility] Last Admin: 10/16/20 02:13 Dose: 40 mg Documented by: Enoxaparin Sodium (Lovenox) 100 mg SUBCUT BID [facility] Last Admin: 10/18/20 08:35 Dose: 100 mg Documented by: Enoxaparin Sodium (Lovenox) 60 mg SUBCUT ONETIME ONE Stop: 10/16/20 11:46 Last Admin: 10/16/20 11:46 Dose: 60 mg Documented by: Famotidine (Pepcid) 20 mg IVPUSH ONETIME ONE Stop: 10/15/20 20:50 Last Admin: 10/15/20 21:04 Dose: 20 mg Documented by: Famotidine (Pepcid) 20 mg IVPUSH BEDTIME [facility] Last Admin: 10/17/20 20:50 Dose: 20 mg Documented by: Haloperidol Lactate (Haldol) Confirm Administered Dose 5 mg .ROUTE .STK-MED ONE Stop: 10/15/20 09:41 Last Admin: 10/15/20 09:52 Dose: Not Given Documented by: Haloperidol Lactate (Haldol) 1 mg IVPUSH ONETIME ONE Stop: 10/15/20 09:45 Last Admin: 10/15/20 12:09 Dose: 1 mg Documented by: Haloperidol Lactate (Haldol) 1 mg IVPUSH ONETIME ONE Stop: 10/15/20 09:47 Last Admin: 10/15/20 09:46 Dose: 1 mg Documented by: Haloperidol Lactate (Haldol) Confirm Administered Dose 5 mg .ROUTE .STK-MED ONE Stop: 10/15/20 09:59 Last Admin: 10/15/20 12:17 Dose: Not Given Documented by: Haloperidol Lactate (Haldol) 2 mg IVPUSH ONETIME ONE Stop: 10/19/20 13:17 Last Admin: 10/19/20 13:28 Dose: 2 mg Documented by: Haloperidol Lactate (Haldol) 4 mg IVPUSH ONETIME ONE Stop: 10/19/20 14:01 Last Admin: 10/19/20 13:46 Dose: 4 mg Documented by: Haloperidol Lactate (Haldol) 8 mg IVPUSH ONETIME ONE Stop: 10/19/20 14:21 Last Admin: 10/19/20 15:03 Dose: 8 mg Documented by: Hydralazine HCl (Apresoline) 10 mg IVPUSH Q2H PRN PRN Reason: Hypertension Last Admin: 10/15/20 09:28 Dose: 10 mg Documented by: Hydralazine HCl (Apresoline) Confirm Administered Dose 20 mg .ROUTE .STK-MED ONE Stop: 10/15/20 10:48 Last Admin: 10/15/20 11:50 Dose: Not Given Documented by: Hydralazine HCl (Apresoline) 20 mg IVPUSH Q8H [facility] Last Admin: 10/15/20 13:52 Dose: Not Given Documented by: Hydralazine HCl (Apresoline) 10 mg IVPUSH ONETIME ONE Stop: 10/15/20 10:50 Last Admin: 10/15/20 10:49 Dose: 10 mg Documented by: Hydralazine HCl (Apresoline) 20 mg IVPUSH Q8H [facility] Last Admin: 10/15/20 15:54 Dose: Not Given Documented by: Hydralazine HCl (Apresoline) 20 mg IVPUSH Q8H PRN PRN Reason: Hypertension Hydralazine HCl (Apresoline) 10 mg IVPUSH Q8H PRN PRN Reason: Hypertension Sodium Chloride (Normal Saline) 1,000 mls @ 100 mls/hr IV ASDIRECTED [facility] Last Admin: 10/14/20 19:59 Dose: 100 mls/hr Documented by: Doxycycline Hyclate 100 mg/ (Sodium Chloride) 100 mls @ 100 mls/hr IV Q12H [facility] Last Admin: 10/16/20 08:31 Dose: 100 mls/hr Documented by: Magnesium Sulfate/Dextrose 1 (gm/ Premix) 100 mls @ 100 mls/hr IV ONETIME ONE Stop: 10/15/20 09:57 Last Admin: 10/15/20 09:15 Dose: 100 mls/hr Documented by: Propofol (Diprivan 100 Ml) Confirm Administered Dose 100 mls @ as directed .ROUTE .STK-MED ONE Stop: 10/15/20 10:04 Last Admin: 10/15/20 12:17 Dose: Not Given Documented by: Propofol (Diprivan 100 Ml) 100 mls @ 2.864 mls/hr IV TITRATE YANI; Protocol Last Titration: 10/19/20 09:25 Dose: 0 mcg/kg/min, 0 mls/hr Documented by: Dextrose/Sodium Chloride (Dextrose 5%-1/2 Ns) 1,000 mls @ 100 mls/hr IV ASDIRECTED Y[facility] Last Infusion: 10/15/20 17:57 Dose: 100 mls/hr Documented by: Lorazepam 40 mg/ Dextrose/ (Water) 40 mls @ 1 mls/hr IV TITRATE YANI; Protocol Last Titration: 10/19/20 16:07 Dose: 0 mg/hr, 0 mls/hr Documented by: Lactated Ringer's (Ringers, Lactated) 1,000 mls @ 125 mls/hr IV ASDIRECTED YANI Stop: 10/16/20 03:01 Last Infusion: 10/16/20 03:00 Dose: 75 mls/hr Documented by: Lactated Ringer's (Ringers, Lactated) Confirm Administered Dose 1,000 mls @ as directed .ROUTE .[facility]-MED ONE Stop: 10/15/20 20:52 Last Admin: 10/15/20 20:58 Dose: Not Given Documented by: Lactated Ringer's (Ringers, Lactated) 250 mls @ 999 mls/hr IV ONETIME ONE Stop: 10/15/20 22:00 Last Admin: 10/15/20 21:45 Dose: 999 mls/hr Documented by: Lactated Ringer's (Ringers, Lactated) 1,000 mls @ 75 mls/hr IV ASDIRECTED YANI Last Infusion: 10/18/20 12:25 Dose: 125 mls/hr Documented by: Azithromycin 500 mg/ Sodium (Chloride) 250 mls @ 250 mls/hr IV Q24H YANI Last Admin: 10/18/20 10:59 Dose: 250 mls/hr Documented by: Ceftriaxone Sodium 2 gm/ (Sodium Chloride) 100 mls @ 200 mls/hr IV Q24H Y[facility] Last Admin: 10/19/20 11:48 Dose: 200 mls/hr Documented by: Lactated Ringer's (Ringers, Lactated) 500 mls @ 999 mls/hr IV ONETIME ONE Stop: 10/16/20 18:33 Last Admin: 10/16/20 18:21 Dose: 999 mls/hr Documented by: Lactated Ringer's (Ringers, Lactated) 1,000 mls @ 125 mls/hr IV ASDIRECTED [facility] Last Admin: 10/19/20 06:42 Dose: 125 mls/hr Documented by: Dextrose/Sodium Chloride (Dextrose 5%-Normal Saline) 1,000 mls @ 125 mls/hr IV ASDIRECTED [facility] Last Admin: 10/20/20 02:15 Dose: 125 mls/hr Documented by: Insulin Human Regular (Humulin R) 5 unit IV ONETIME ONE Stop: 10/15/20 13:18 Last Admin: 10/15/20 14:01 Dose: 5 unit Documented by: Lorazepam (Ativan) 0.5 mg IVPUSH ONETIME ONE Stop: 10/14/20 18:54 Last Admin: 10/14/20 18:57 Dose: 0.5 mg Documented by: Lorazepam (Ativan) Confirm Administered Dose 2 mg .ROUTE .STK-MED ONE Stop: 10/14/20 18:54 Last Admin: 10/14/20 18:57 Dose: Not Given Documented by: Lorazepam (Ativan) 1 mg IVPUSH ONETIME STA Stop: 10/15/20 01:44 Last Admin: 10/15/20 02:01 Dose: 1 mg Documented by: Lorazepam (Ativan) 1 mg IVPUSH STAT STA Stop: 10/15/20 05:15 Last Admin: 10/15/20 05:25 Dose: 1 mg Documented by: Lorazepam (Ativan) Confirm Administered Dose 2 mg .ROUTE .STK-MED ONE Stop: 10/15/20 05:20 Last Admin: 10/15/20 05:26 Dose: Not Given Documented by: Lorazepam (Ativan) 1 mg IVPUSH STAT STA Stop: 10/15/20 06:35 Last Admin: 10/15/20 06:52 Dose: 1 mg Documented by: Lorazepam (Ativan) 0 mg IVPUSH Q1H PRN; Protocol PRN Reason: Withdrawal Symptoms Last Admin: 10/15/20 08:53 Dose: 1 mg Documented by: Lorazepam (Ativan) 1 mg IVPUSH Q4H PRN PRN Reason: Anxiety Last Admin: 10/19/20 10:00 Dose: 1 mg Documented by: Lorazepam (Ativan) 2 mg IVPUSH ONETIME ONE Stop: 10/15/20 12:13 Last Admin: 10/15/20 12:15 Dose: 2 mg Documented by: Lorazepam (Ativan) Confirm Administered Dose 2 mg .ROUTE .STK-MED ONE Stop: 10/15/20 12:15 Last Admin: 10/15/20 12:32 Dose: Not Given Documented by: Lorazepam (Ativan) Confirm Administered Dose 2 mg .ROUTE .STK-MED ONE Stop: 10/15/20 12:20 Last Admin: 10/15/20 12:32 Dose: Not Given Documented by: Lorazepam (Ativan) 2 mg IVPUSH NOW STA Stop: 10/15/20 12:21 Last Admin: 10/15/20 12:20 Dose: 2 mg Documented by: Lorazepam (Ativan) 1 mg IVPUSH NOW STA Stop: 10/15/20 13:06 Last Admin: 10/15/20 13:05 Dose: 1 mg Documented by: Lorazepam (Ativan) 2 mg IVPUSH ONETIME YANI Stop: 10/19/20 23:00 Last Admin: 10/19/20 16:09 Dose: 2 mg Documented by: Lorazepam (Ativan) Confirm Administered Dose 2 mg .ROUTE .STK-MED ONE Stop: 10/19/20 16:02 Last Admin: 10/19/20 16:47 Dose: Not Given Documented by: Methylprednisolone Sodium Succinate (Solu-Medrol) 125 mg IVPUSH ONETIME ONE Stop: 10/14/20 18:54 Last Admin: 10/14/20 18:58 Dose: 125 mg Documented by: Methylprednisolone Sodium Succinate (Solu-Medrol) Confirm Administered Dose 125 mg .ROUTE .STK-MED ONE Stop: 10/14/20 18:54 Last Admin: 10/14/20 18:57 Dose: Not Given Documented by: Methylprednisolone Sodium Succinate (Solu-Medrol) 125 mg IVPUSH Q6H [facility] Last Admin: 10/16/20 11:07 Dose: 125 mg Documented by: Methylprednisolone Sodium Succinate (Solu-Medrol) 40 mg IVPUSH Q8H [facility] Last Admin: 10/22/20 03:04 Dose: 40 mg Documented by: Metoprolol Tartrate (Lopressor) 5 mg IVPUSH Q4H PRN PRN Reason: heart rate >110 Last Admin: 10/20/20 08:48 Dose: 5 mg Documented by: Midazolam HCl (Versed 1 Mg/Ml) 10 mg .ROUTE .STK-MED ONE Stop: 10/15/20 13:01 Midazolam HCl (Versed 5 Mg/Ml) 10 mg IV Q15M PRN PRN Reason: Agitation Last Admin: 10/19/20 13:14 Dose: 10 mg Documented by: Morphine Sulfate (Morphine) 1 mg IVPUSH STAT STA Stop: 10/15/20 05:13 Last Admin: 10/15/20 05:20 Dose: 1 mg Documented by: Morphine Sulfate (Morphine) Confirm Administered Dose 2 mg .ROUTE .STK-MED ONE Stop: 10/15/20 05:19 Last Admin: 10/15/20 05:26 Dose: Not Given Documented by: Morphine Sulfate (Morphine) 1 mg IVPUSH STAT STA Stop: 10/15/20 06:35 Last Admin: 10/15/20 06:51 Dose: 1 mg Documented by: Morphine Sulfate (Morphine) Confirm Administered Dose 2 mg .ROUTE .STK-MED ONE Stop: 10/15/20 08:01 Last Admin: 10/15/20 09:10 Dose: Not Given Documented by: Morphine Sulfate (Morphine) 2 mg IVPUSH ONETIME ONE Stop: 10/15/20 08:05 Last Admin: 10/15/20 08:04 Dose: 2 mg Documented by: Morphine Sulfate (Morphine) 1 mg IVPUSH Q4H PRN PRN Reason: Pain (mild 1-3) Pantoprazole Sodium (Protonix Iv) 40 mg IVPUSH BID [facility] Last Admin: 10/20/20 08:30 Dose: 40 mg Documented by: Propofol (Diprivan 20 Ml) 200 mg .ROUTE .STK-MED ONE Stop: 10/15/20 13:01 Propofol (Diprivan 20 Ml) 200 mg .ROUTE .STK-MED ONE Stop: 10/15/20 13:01 Racepinephrine (S-2 2.25%) 0.5 ml NEB ONETIME [facility] Last Admin: 10/19/20 09:27 Dose: 0.5 ml Documented by: Rocuronium [place] (Zemuron) 50 mg .ROUTE .STK-MED ONE Stop: 10/15/20 13:[address] [place] (Zemuron) 50 mg .ROUTE .STK-MED ONE Stop: 10/15/20 13:01 Sodium Chloride (Sodium Chloride 0.9%) 3 ml INH ASDIRECTED PRN PRN Reason: mix with racepinephrine neb Sodium Polystyrene Sulfonate (Kayexalate) 45 gm PO Q8H YANI Stop: 10/15/20 22:01 Last Admin: 10/15/20 21:50 Dose: Not Given Documented by: Sodium Polystyrene Sulfonate (Kayexalate) 45 gm PO ONETIME ONE Stop: 10/16/20 19:01 Last Admin: 10/16/20 18:44 Dose: 45 gm Documented by: Succinylcholine Chloride (Quelicin) 200 mg .ROUTE .STK-MED ONE Stop: 10/15/20 13:01 Trazodone HCl (Trazodone) 50 mg PO ONETIME PRN PRN Reason: Sleep Last Admin: 10/20/20 20:43 Dose: 50 mg Documented by: Trazodone HCl (Trazodone) 50 mg PO BEDTIME PRN PRN Reason: Sleep
--- NOTE | 2020-10-24 18:32 | CONS ---
CONSULTING PHYSICIAN: Aden Graham MD DATE OF CONSULTATION: 10/22/2020 This is a 60-minute inpatient clinical event. Site where the services are provided are [facility] in [place], [place]. Site where the services are provided from our offices is in [facility]. Length of service for this 60-minute inpatient clinical event is 60 minutes. IDENTIFICATION: The patient is a 30-year-old male who was admitted to the inpatient ICU at [facility] in [place], [place]. He is seen for psychiatric consultation per the request of staff attending, Dr. Ureña and his treatment team. CHIEF COMPLAINT: "I just got into some drugs." HISTORY OF PRESENT ILLNESS: The patient is a 30-year-old male who is admitted to the inpatient MICU at [facility] in [place], [place] and he was apparently using a combination of meth, marijuana, and benzos, and states that he overdid it and this is why he ended up in the hospital. He states right now that he knows "I gotta go to treatment because if I don't it might kill me" so far as his meth and cannabis use is concerned. He does feel that his mood is good when he stays sober and he wants to go to CD treatment in [place], but he does not feel that he needs any kind of psychiatric medication intervention at this point in time. He states that when he is medically stabilized, he wants to go live with his brother who is living down in [place], [place] and then get himself into treatment. He denies being suicidal or homicidal. He denies any psychotic, delusional, or paranoid symptoms. MEDICATIONS: At the time of admission: 1. Advair. 2. Albuterol. ALLERGIES: 1. Penicillin. 2. The patient is allergic to ketchup. PAST MEDICAL HISTORY: Asthma. REVIEW OF SYSTEMS: Aside from pulmonary, all other major organ systems are negative at this point in time for acute difficulties or complications. FAMILY PSYCHIATRIC AND CD HISTORY: The patient reports his father had CD issues in the form of methamphetamine and brother also has CD issues. PAST PSYCHIATRIC AND CD HISTORY: The patient denies any previous psychiatric hospitalizations or chemical dependency treatment. He denies any previous suicide attempts, self-injurious behaviors, or eating disorder history. He states he has gotten 6 tattoos in the past, last one being back in 2017. Denies any abuse issues while being raised. Denies any past psychiatric medication history. He has been using meth and marijuana since he has been about 16 years ago and he states his longest sobriety has been for about 6 weeks. SOCIAL HISTORY: The patient is born in [place], [place], he is the fourth of 5 siblings. The patient's parents when the patient was 7 years of age. He stayed with his mom. Father worked in [employer]. Mother had a water treatment degree. The patient's highest level of education is a GED. 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 He has never been , is not involved in any current relationships. He has a 4-year-old child from a previous relationship down in [place]. He denies any prior service or any current legal difficulties. He is Pentecostalism in terms of his juana formation. He enjoys extreme activities in his spare time. MENTAL STATUS EXAMINATION: The patient is a 30-year-old white male, in no apparent distress. Speech is of regular rate and rhythm. The patient is cognitively oriented x2 to person and place, but not to date. There are no abnormal motor movements or tics observed. Gait and station are normal and steady. The patient is walking about the room at the beginning of the interview and at the end of the interview. There are no abnormal motor movements or tics observed. Mood is tired, but good overall per patient report. Affect is cooperative overall for the purposes of the intake interview and there is no behavioral or stated evidence of acute suicidal or homicidal ideation or acute psychotic, delusional, or paranoid symptoms. Thought processes are significant for some mild cognitive deficits and the fact that the patient does not know the day. There are no manic symptoms or loose associations evident. Judgment and insight again appear somewhat impaired secondary to the impaired cognition, but does appear to be improving. Motivation for help appears fair to good. VITALS: 133/83, 84, 22, 98.6 degrees. IMPRESSION: [place] I: 1. Methamphetamine dependence, F15.20. 2. Cannabis dependence, F12.20. 3. Anxiety disorder, not other specified, F41.9. 4. Rule out suspected bipolar affective disease, mixed type, F31.60. [place] II: None. [place] III: History of asthma. [place] IV: Severe. [place] V: 60. PLAN: 1. Sobriety. 2. Begin Topamax 25 mg b.i.d. for mood stability, anxiety reduction, and seizure prophylaxis. 3. Begin Seroquel 25 mg at bedtime as ordered for clarity of thought, elimination of any psychotic or paranoid symptoms. 4. Discontinue trazodone 50 mg at bedtime. 5. AA rep to visit the patient while on unit. 6. Pastoral guidance. 7. Recommend the patient follow up with Outpatient Psychiatry when he is medically stabilized and discharged back to the community to assess his overall function, the efficacy of his prescribed Topamax and Seroquel regimen. 8. I will continue to follow up with the patient on an as-needed basis while he remains on the inpatient MICU at [facility] in [place], [place]. 9. We will follow up with the patient sooner if any complications in the interim. 10.Crisis plan is in place. MMODAL /[id number]
== END 2020-10-22 15:10 | disposition home or self-care (01) | DRG 870 ==
LOC: JD.ED 18:30 → INTOOBSV 10-15 01:03 → JD.MS 10-15 01:03 → OBSVTOIN 10-15 07:39 → JD.ICU 10-15 07:40
PROVIDERS: ADMIT Internal Medicine Cardiovascular Disease; ATTEND Internal Medicine Cardiovascular Disease
PROC: 5A1955Z Respiratory Ventilation, Greater than 96 Consecutive Hours (ICD-10-PCS; principal; 2020-10-15)
PROC: 0BH17EZ Insertion of Endotracheal Airway into Trachea, Via Natural or Artificial Opening (ICD-10-PCS; 2020-10-15)
DX: A40.3 Sepsis due to Streptococcus pneumoniae (principal); J96.01 Acute respiratory failure with hypoxia; J18.9 Pneumonia, unspecified organism; A41.89 Other specified sepsis; J45.902 Unspecified asthma with status asthmaticus; F15.23 Other stimulant dependence with withdrawal; N17.9 Acute kidney failure, unspecified; F12.90 Cannabis use, unspecified, uncomplicated; Z20.822 Contact with and (suspected) exposure to COVID-19; F41.9 Anxiety disorder, unspecified; E66.9 Obesity, unspecified; F17.200 Nicotine dependence, unspecified, uncomplicated; Z88.0 Allergy status to penicillin; Z88.8 Allergy status to other drugs, medicaments and biological substances; Z79.51 Long term (current) use of inhaled steroids; Z68.27 Body mass index [BMI] 27.0-27.9, adult
CPT/HCPCS: 0240U; 31500; 36415; 36600; 51702; 71045; 71045-26; 71275; 71275-26; 80048; 80053; 80306; 82803; 82962; 83605; 83735; 83880; 84100; 84132; 84145; 84484; 85007; 85025; 85027; 85379; 86140; 86738; 87040; 87070; 87077; 87181; 87184; 87205; 87899; 93005; 93010; 93971-26-RT; 93971-RT; 94002; 94003; 94640; 94660; 96374; 96375; 97110-GP; 97112-GP; 97116-GP; 97163-GP; 97167-GO; 97530-GO; 97530-GP; 97535-GO; 99223; 99232; 99233; 99239; 99285; 99285-25; A9270-GY; C9113; G0480; J0330; J0360; J0456; J0696; J1100; J1200; J1630; J1650; J1815-GY; J2060; J2250; J2270; J2704; J2920; J2930; J3010; J3475; J3490; J7030; J7042; J7050; J7120; J7512; J7620-GY; Q3014; U0002

== ENCOUNTER 2022-05-08 20:49 | Emergency (ER) | payer MEDICAID ==
[2022-05-08] MEDS ORDERED: methylPREDNISolone Sodium Succinate 125 MG/2 ML SDV IVPUSH ONE (21:07)
[2022-05-08] MEDS ORDERED: Sodium Chloride 0.9% 10 ML Syringe FLUSH PRN (21:07)
[2022-05-08] MEDS: Albuterol 0.083% 2.5 MG/3 ML Neb Soln NEB SCH ×3 (21:25→21:32)
[2022-05-08 21:43] LABS: ESTIMATED GFR 68 mL/min (>60)
== END 2022-05-08 22:15 | disposition home or self-care (01) ==
LOC: JD.ED 20:49
DX: J45.21 Mild intermittent asthma with (acute) exacerbation (principal); E66.9 Obesity, unspecified; Z68.30 Body mass index [BMI] 30.0-30.9, adult; Z88.0 Allergy status to penicillin; Z91.048 Other nonmedicinal substance allergy status
CPT/HCPCS: 36415; 80053; 85025; 94640; 96374; 99285; J2930; J3490; 99284

== ENCOUNTER 2023-04-22 12:41 | Inpatient (IN) | payer MEDICAID ==
[2023-04-22] MEDS ORDERED: Albuterol 0.083% 2.5 MG/3 ML Neb Soln NEB ONE ×3 (12:43→14:16)
[2023-04-22] MEDS ORDERED: methylPREDNISolone Sodium Succinate 125 MG/2 ML SDV IVPUSH ONE (12:43)
[2023-04-22] MEDS ORDERED: Sodium Chloride 0.9% 1,000 ML IV SCH (12:45)
[2023-04-22] MEDS ORDERED: Magnesium Sulfate/Water 2 GM in Premix Bag 1 BAG IV ONE (12:54)
[2023-04-22] MEDS ORDERED: Ipratropium 0.02% 0.5 MG/2.5 ML Neb Soln NEB ONE ×2 (12:54→13:06)
[2023-04-22] MEDS ORDERED: LORazepam 2 MG/ML SDV IVPUSH ONE ×3 (13:23→16:32)
[2023-04-22 13:27] LABS: BASOPHILS PERCENT AUTO 0.4 % (0.0-1.0); EOSINOPHILS ABSOLUTE AUTO 0.6 K/mm3 (0.0-0.4); EOSINOPHILS PERCENT AUTO 6.3 % (0.0-6.0); HEMATOCRIT 48.9 % (42.0-52.0); HEMOGLOBIN 16.1 gm/dl (14.0-18.0); IMMATURE GRAN ABSOLUTE AUTO 0.02 K/mm3 (0.00-0.05); IMMATURE GRAN PERCENT AUTO 0.2 % (0.0-0.4); LYMPHOCYTES ABSOLUTE AUTO 0.9 K/mm3 (1.0-4.8); LYMPHOCYTES PERCENT AUTO 10.4 % (24.0-44.0); MEAN CORPUSCULAR HEMOGLOBIN 31.1 pg (28.0-32.0); MEAN CORPUSCULAR HGB CONC 32.9 g/dl (32.0-36.0); MEAN CORPUSCULAR VOLUME 94.4 fl (83.0-99.0); MEAN PLATELET VOLUME 9.8 fl (9.4-12.4); MONOCYTES ABSOLUTE AUTO 0.7 K/mm3 (0.0-0.8); MONOCYTES PERCENT AUTO 7.8 % (0.0-8.0); NEUTROPHILS ABSOLUTE AUTO 6.8 K/mm3 (1.8-7.7); NEUTROPHILS PERCENT AUTO 74.9 % (41.0-71.0); PLATELET COUNT,PLT 249 K/mm3 (150-400); RED BLOOD CELL COUNT 5.18 M/mm3 (4.52-5.90); WHITE BLOOD CELL COUNT,WBC 9.02 K/mm3 (3.9-11.3)
[2023-04-22 13:59] LABS: INR < 0.93; PROTHROMBIN TIME 9.9 SECONDS (9.7-12.0)
[2023-04-22 14:05] LABS: ALANINE AMINOTRANSFERASE,ALT 30 U/L (16-63); ALBUMIN 3.9 g/dl (3.4-5.0); ALKALINE PHOSPHATASE 100 U/L (46-116); ANION GAP 14.1 (5-15); ASPARTATE AMNIOTRANSFERASE,AST 16 U/L (15-37); BILIRUBIN TOTAL 0.4 mg/dL (0.2-1.0); BLOOD UREA NITROGEN,BUN 14 mg/dL (7-18); BUN/CREATININE RATIO 12.7 (14-18); C-REACTIVE PROTEIN 0.5 mg/dL (<1.0); CARBON DIOXIDE,CO2 26 mEq/L (21-32); CHLORIDE,CL 106 mEq/L (98-107); CREATININE 1.1 mg/dL (0.7-1.3); EST CRCL DRUG DOSING (CG) 103.86 mL/min; ESTIMATED GFR 90 mL/min (>60); GLUCOSE RANDOM 126 mg/dL (70-99); POTASSIUM,K 4.1 mEq/L (3.5-5.1); PROTEIN TOTAL,TP 7.8 g/dl (6.4-8.2); SODIUM,NA 142 mEq/L (136-145)
[2023-04-22] MEDS ORDERED: Acetaminophen 325 MG Tab PO ONE (14:13)
[2023-04-22] MEDS ORDERED: Albuterol/Ipratropium 3.0-0.5 MG/3 ML Neb Soln NEB ONE ×2 (14:16→16:10)
[2023-04-22] MEDS ORDERED: guaiFENesin 600 MG Tab.ER PO ONE (14:19)
[2023-04-22 14:21] LABS: TROPONIN I HIGH SENSITIVITY < 4 pg/mL (<=76)
[2023-04-22 14:52] LABS: BASE EXCESS ARTERIAL -2.7 (-2-2.0); BICARBONATE,ARTERIAL 22.6 meq/L (22.0-26.0); PCO2 ARTERIAL 42.9 mmHg (35.0-45.0)
[2023-04-22] MEDS ORDERED: Ondansetron 4 MG/2 ML SDV IV PRN (16:32)
[2023-04-22] MEDS ORDERED: LORazepam 2 MG/ML SDV IV PRN (16:32)
[2023-04-22] MEDS ORDERED: Docusate Sodium 100 MG Cap PO PRN (16:32)
[2023-04-22] MEDS ORDERED: Ondansetron 4 MG Tab.DIS PO PRN (16:32)
[2023-04-22] MEDS: Acetaminophen 325 MG Tab PO PRN (17:50)
[2023-04-22] MEDS: methylPREDNISolone Sodium Succinate 40 MG/1 ML SDV IVPUSH SCH ×2 (17:51→22:01)
[2023-04-22] MEDS: Heparin Sodium 5,000 Units/ML Vial SUBCUT SCH (17:53)
[2023-04-22] MEDS: Albuterol/Ipratropium 3.0-0.5 MG/3 ML Neb Soln NEB SCH ×3 (17:54→21:13)
[2023-04-22] MEDS: Albuterol/Ipratropium 3.0-0.5 MG/3 ML Neb Soln NEB PRN ×2 (17:54→23:09)
[2023-04-22] MEDS ORDERED: LORazepam 2 MG/ML SDV ONE (17:59)
[2023-04-22] MEDS ORDERED: LORazepam 2 MG/ML SDV IVPUSH STA (19:16)
[2023-04-22 19:25] LABS: BASE EXCESS ARTERIAL -4.8 (-2-2.0); O2 SATURATION ARTERIAL 97.9 % (96.0-97.0); PCO2 ARTERIAL 60.9 mmHg (35.0-45.0)
[2023-04-22 20:57] LABS: BASE EXCESS ARTERIAL -3.2 (-2-2.0); BICARBONATE,ARTERIAL 25.4 meq/L (22.0-26.0); O2 SATURATION ARTERIAL 97.4 % (96.0-97.0); PCO2 ARTERIAL 61.2 mmHg (35.0-45.0)
[2023-04-22] MEDS: Sodium Chloride 0.9% 10 ML Syringe FLUSH PRN (21:33)
[2023-04-22 22:06] LABS: BARBITURATE SCREEN,URINE NEGATIVE (CUTOFF=200); BENZODIAZEPINES SCREEN,URINE PRESUMPTIVE POSITIVE (CUTOFF=150); BUPRENORPHINE SCREEN,URINE NEGATIVE (CUTOFF=10); METHADONE SCREEN, URINE NEGATIVE (CUT0FF=200); METHAMPHETAMINES SCREEN, URINE PRESUMPTIVE POSITIVE (CUTOFF=500); OXYCODONE SCREEN,URINE NEGATIVE (CUT0FF=100); PROPOXYPHENE SCREEN,URINE NEGATIVE (CUTOFF=300); THC SCREEN,URINE 20 NG/ML NEGATIVE (CUTOFF=50)
[2023-04-22 22:08] LABS: AMPHETAMINES SCREEN, URINE PRESUMPTIVE POSITIVE (CUTOFF=500)
[2023-04-23] MEDS: Heparin Sodium 5,000 Units/ML Vial SUBCUT SCH ×4 (00:10→23:45)
[2023-04-23] MEDS: Albuterol/Ipratropium 3.0-0.5 MG/3 ML Neb Soln NEB SCH ×6 (00:44→20:50)
[2023-04-23] MEDS: Acetaminophen 325 MG Tab PO PRN (02:07)
[2023-04-23] MEDS: Albuterol/Ipratropium 3.0-0.5 MG/3 ML Neb Soln NEB PRN ×6 (02:29→17:58)
[2023-04-23] MEDS: Sodium Chloride 0.9% 10 ML Syringe FLUSH PRN ×2 (02:50→04:46)
[2023-04-23] MEDS: methylPREDNISolone Sodium Succinate 40 MG/1 ML SDV IVPUSH SCH ×4 (04:45→22:12)
[2023-04-23 05:36] LABS: BASOPHILS PERCENT AUTO 0.1 % (0.0-1.0); HEMATOCRIT 50.5 % (42.0-52.0); HEMOGLOBIN 16.3 gm/dl (14.0-18.0); IMMATURE GRAN ABSOLUTE AUTO 0.04 K/mm3 (0.00-0.05); IMMATURE GRAN PERCENT AUTO 0.4 % (0.0-0.4); LYMPHOCYTES ABSOLUTE AUTO 0.6 K/mm3 (1.0-4.8); LYMPHOCYTES PERCENT AUTO 7.1 % (24.0-44.0); MEAN CORPUSCULAR HEMOGLOBIN 30.8 pg (28.0-32.0); MEAN CORPUSCULAR HGB CONC 32.3 g/dl (32.0-36.0); MEAN CORPUSCULAR VOLUME 95.5 fl (83.0-99.0); MEAN PLATELET VOLUME 9.5 fl (9.4-12.4); MONOCYTES ABSOLUTE AUTO 0.3 K/mm3 (0.0-0.8); MONOCYTES PERCENT AUTO 3.2 % (0.0-8.0); NEUTROPHILS ABSOLUTE AUTO 8.1 K/mm3 (1.8-7.7); NEUTROPHILS PERCENT AUTO 89.2 % (41.0-71.0); PLATELET COUNT,PLT 271 K/mm3 (150-400); RED BLOOD CELL COUNT 5.29 M/mm3 (4.52-5.90); WHITE BLOOD CELL COUNT,WBC 9.04 K/mm3 (3.9-11.3)
[2023-04-23 05:52] LABS: ANION GAP 13.7 (5-15); BUN/CREATININE RATIO 13.3 (14-18); CALCIUM 8.9 mg/dL (8.5-10.1); CREATININE 1.2 mg/dL (0.7-1.3); EST CRCL DRUG DOSING (CG) 95.2 mL/min; POTASSIUM,K 4.7 mEq/L (3.5-5.1)
[2023-04-23 07:14] LABS: BASE EXCESS ARTERIAL -1.1 (-2-2.0); O2 SATURATION ARTERIAL 96.9 % (96.0-97.0); PCO2 ARTERIAL 60.7 mmHg (35.0-45.0)
[2023-04-23] MEDS ORDERED: Scopolamine 1.5 MG Transdermal Patch TRDERM PRN (07:20)
[2023-04-23] MEDS: Dextrose 5%-0.45% NaCl 1,000 ML IV SCH ×2 (12:00→23:38)
[2023-04-24] MEDS: Albuterol/Ipratropium 3.0-0.5 MG/3 ML Neb Soln NEB SCH ×6 (00:47→20:59)
[2023-04-24] MEDS: Albuterol/Ipratropium 3.0-0.5 MG/3 ML Neb Soln NEB PRN ×3 (02:31→19:20)
[2023-04-24] MEDS: methylPREDNISolone Sodium Succinate 40 MG/1 ML SDV IVPUSH SCH ×3 (03:56→17:41)
[2023-04-24] MEDS: Heparin Sodium 5,000 Units/ML Vial SUBCUT SCH ×3 (08:43→23:49)
[2023-04-24] MEDS: Dextrose 5%-0.45% NaCl 1,000 ML IV SCH ×2 (10:36→23:49)
[2023-04-24] MEDS: guaiFENesin 600 MG Tab.ER PO SCH ×2 (12:08→20:50)
[2023-04-24] MEDS ORDERED: traZODone 50 MG Tab PO PRN (20:10)
[2023-04-25] MEDS: Albuterol/Ipratropium 3.0-0.5 MG/3 ML Neb Soln NEB SCH ×6 (00:41→21:00)
[2023-04-25] MEDS: methylPREDNISolone Sodium Succinate 40 MG/1 ML SDV IVPUSH SCH ×3 (02:27→17:39)
[2023-04-25] MEDS: Heparin Sodium 5,000 Units/ML Vial SUBCUT SCH ×2 (07:57→17:37)
[2023-04-25] MEDS: Doxycycline 100 MG in Sodium Chloride 0.9% 100 ML IV SCH ×2 (07:58→19:39)
[2023-04-25] MEDS: guaiFENesin 600 MG Tab.ER PO SCH ×2 (08:00→20:48)
[2023-04-25] MEDS: Albuterol/Ipratropium 3.0-0.5 MG/3 ML Neb Soln NEB PRN ×2 (15:14→19:19)
[2023-04-25] MEDS: Acetaminophen 325 MG Tab PO PRN (17:36)
[2023-04-25] MEDS: Nicotine 14 MG/24 Hr Patch TRDERM SCH (17:38)
[2023-04-25] MEDS ORDERED: traZODone 50 MG Tab PO PRN (18:52)
[2023-04-26] MEDS: Heparin Sodium 5,000 Units/ML Vial SUBCUT SCH ×2 (00:50→08:01)
[2023-04-26] MEDS: Albuterol/Ipratropium 3.0-0.5 MG/3 ML Neb Soln NEB SCH ×5 (00:58→16:05)
[2023-04-26] MEDS: methylPREDNISolone Sodium Succinate 40 MG/1 ML SDV IVPUSH SCH (01:45)
[2023-04-26 05:55] LABS: ANION GAP 11.4 (5-15); BUN/CREATININE RATIO 27.8 (14-18); CALCIUM 8.8 mg/dL (8.5-10.1); CREATININE 0.9 mg/dL (0.7-1.3); EST CRCL DRUG DOSING (CG) 126.94 mL/min; POTASSIUM,K 4.4 mEq/L (3.5-5.1)
[2023-04-26 05:56] LABS: BASOPHILS PERCENT AUTO 0.2 % (0.0-1.0); HEMATOCRIT 45.4 % (42.0-52.0); HEMOGLOBIN 14.9 gm/dl (14.0-18.0); IMMATURE GRAN ABSOLUTE AUTO 0.04 K/mm3 (0.00-0.05); IMMATURE GRAN PERCENT AUTO 0.4 % (0.0-0.4); LYMPHOCYTES ABSOLUTE AUTO 0.6 K/mm3 (1.0-4.8); LYMPHOCYTES PERCENT AUTO 6.3 % (24.0-44.0); MEAN CORPUSCULAR HEMOGLOBIN 31.1 pg (28.0-32.0); MEAN CORPUSCULAR HGB CONC 32.8 g/dl (32.0-36.0); MEAN CORPUSCULAR VOLUME 94.8 fl (83.0-99.0); MEAN PLATELET VOLUME 10.7 fl (9.4-12.4); MONOCYTES ABSOLUTE AUTO 0.3 K/mm3 (0.0-0.8); MONOCYTES PERCENT AUTO 3.3 % (0.0-8.0); NEUTROPHILS ABSOLUTE AUTO 9.1 K/mm3 (1.8-7.7); NEUTROPHILS PERCENT AUTO 89.8 % (41.0-71.0); PLATELET COUNT,PLT 226 K/mm3 (150-400); RED BLOOD CELL COUNT 4.79 M/mm3 (4.52-5.90); WHITE BLOOD CELL COUNT,WBC 10.08 K/mm3 (3.9-11.3)
[2023-04-26] MEDS: Nicotine 14 MG/24 Hr Patch TRDERM SCH (08:00)
[2023-04-26] MEDS: guaiFENesin 600 MG Tab.ER PO SCH (08:01)
[2023-04-26] MEDS ORDERED: predniSONE 20 MG Tab PO SCH (08:30)
[2023-04-26] MEDS: Doxycycline 100 MG in Sodium Chloride 0.9% 100 ML IV SCH (08:43)
[2023-04-27] MEDS ORDERED: predniSONE 20 MG Tab PO SCH (07:00)
== END 2023-04-26 17:15 | disposition home or self-care (01) | DRG 189 ==
LOC: JD.ED 12:41 → JD.MS 16:32 → JD.ICU 17:29 → JD.MS 04-26 12:02
PROVIDERS: ADMIT Hospitalist; ATTEND Hospitalist
PROC: 5A09357 Assistance with Respiratory Ventilation, Less than 24 Consecutive Hours, Continuous Positive Airway Pressure (ICD-10-PCS; principal; 2023-04-22)
PROC: 4A033R1 Measurement of Arterial Saturation, Peripheral, Percutaneous Approach (ICD-10-PCS; 2023-04-22)
DX: J96.01 Acute respiratory failure with hypoxia (principal); J45.901 Unspecified asthma with (acute) exacerbation; E66.9 Obesity, unspecified; F41.9 Anxiety disorder, unspecified; F19.10 Other psychoactive substance abuse, uncomplicated; F17.210 Nicotine dependence, cigarettes, uncomplicated; J98.4 Other disorders of lung; Z68.29 Body mass index [BMI] 29.0-29.9, adult; Z88.0 Allergy status to penicillin; Z91.018 Allergy to other foods; Z79.899 Other long term (current) drug therapy; Z87.81 Personal history of (healed) traumatic fracture; Z98.890 Other specified postprocedural states
CPT/HCPCS: 36415; 36600; 71045; 71045-26; 80048; 80053; 80306; 82803; 83880; 84484; 85025; 85610; 86140; 93005; 93010; 94640; 94660; 94667; 94668; 94761; 96365; 96366; 96375; 96376; 99285; 99285-25; A9270-GY; J1644; J2060; J2920; J2930; J3475; J3490; J7042; J7512; J7620-GY

== ENCOUNTER 2025-01-06 23:22 | Emergency (ER) | payer MEDICAID ==
[2025-01-06] MEDS: methylPREDNISolone Sodium Succinate 125 MG/2 ML SDV IM ONE (23:49)
[2025-01-06] MEDS: Albuterol/Ipratropium 3.0-0.5 MG/3 ML Neb Soln NEB SCH (23:51)
== END 2025-01-07 01:09 | disposition home or self-care (01) ==
LOC: JD.ED 23:22
DX: J45.901 Unspecified asthma with (acute) exacerbation (principal); E66.9 Obesity, unspecified; Z79.899 Other long term (current) drug therapy; Z88.0 Allergy status to penicillin; Z91.018 Allergy to other foods; Z68.31 Body mass index [BMI] 31.0-31.9, adult
CPT/HCPCS: 71045; 94640; 96372; 99285; J2919; J7620; 99283; A9270-GY

== ENCOUNTER 2025-04-17 13:22 | Emergency (ER) | payer MEDICAID ==
[2025-04-17] MEDS ORDERED: Sodium Chloride 0.9% 10 ML Syringe FLUSH PRN (13:36)
[2025-04-17] MEDS: methylPREDNISolone Sodium Succinate 125 MG/2 ML SDV IVPUSH ONE (13:51)
[2025-04-17 14:02] LABS: BASOPHILS ABSOLUTE AUTO 0.1 K/mm3 (0.0-0.2); BASOPHILS PERCENT AUTO 0.6 % (0.0-1.0); EOSINOPHILS ABSOLUTE AUTO 0.5 K/mm3 (0.0-0.4); EOSINOPHILS PERCENT AUTO 6.5 % (0.0-6.0); IMMATURE GRAN ABSOLUTE AUTO 0.04 K/mm3 (0.00-0.05); IMMATURE GRAN PERCENT AUTO 0.5 % (0.0-0.4); LYMPHOCYTES ABSOLUTE AUTO 1.0 K/mm3 (1.0-4.8); LYMPHOCYTES PERCENT AUTO 12.0 % (24.0-44.0); MEAN PLATELET VOLUME 9.7 fl (9.4-12.4); MONOCYTES ABSOLUTE AUTO 0.7 K/mm3 (0.0-0.8); MONOCYTES PERCENT AUTO 8.0 % (0.0-8.0); NEUTROPHILS ABSOLUTE AUTO 6.1 K/mm3 (1.8-7.7); NEUTROPHILS PERCENT AUTO 72.4 % (41.0-71.0); NRBC ABSOLUTE 0.00 (0.00-0.02); NRBC PERCENT 0.0 % (0.0-0.2); PLATELET COUNT,PLT 227 K/mm3 (150-400); RED BLOOD CELL COUNT 5.39 M/mm3 (4.52-5.90); WHITE BLOOD CELL COUNT,WBC 8.35 K/mm3 (3.9-11.3)
[2025-04-17 14:21] LABS: A/G RATIO 0.9 (1-2); ALANINE AMINOTRANSFERASE,ALT 30.0 U/L (16-63); ASPARTATE AMNIOTRANSFERASE,AST 15.0 U/L (15-37); BILIRUBIN TOTAL 0.4 mg/dL (0.2-1.0); BLOOD UREA NITROGEN,BUN 18.0 mg/dL (7-18); CARBON DIOXIDE,CO2 27.0 mEq/L (21-32); CHLORIDE,CL 104.0 mEq/L (98-107); CREATININE 1.2 mg/dL (0.7-1.3); EST CRCL DRUG DOSING (CG) 90.64 mL/min; ESTIMATED GFR 80.0 mL/min (>60); GLUCOSE RANDOM 137.0 mg/dL (70-99); POTASSIUM,K 4.1 mEq/L (3.5-5.1); PROTEIN TOTAL,TP 7.3 g/dl (6.4-8.2); SODIUM,NA 137.0 mEq/L (136-145)
== END 2025-04-17 15:15 | disposition home or self-care (01) ==
LOC: JD.ED 13:22
DX: J45.901 Unspecified asthma with (acute) exacerbation (principal); F17.210 Nicotine dependence, cigarettes, uncomplicated; Z88.0 Allergy status to penicillin; Z91.018 Allergy to other foods; Z79.51 Long term (current) use of inhaled steroids; Z79.899 Other long term (current) drug therapy
CPT/HCPCS: 36415; 71046; 80053; 85025; 86140; 94640; 96374; 99285; J2919; J7620; 99284; A9270-GY

== ENCOUNTER 2025-05-31 09:18 | Emergency (ER) | payer SELFPAY ==
[2025-05-31] MEDS: Albuterol 0.083% 2.5 MG/3 ML Neb Soln NEB ONE (10:02)
== END 2025-05-31 11:30 | disposition home or self-care (01) ==
LOC: JD.ED 09:18
DX: J45.901 Unspecified asthma with (acute) exacerbation (principal); J06.9 Acute upper respiratory infection, unspecified; F17.200 Nicotine dependence, unspecified, uncomplicated; Z79.899 Other long term (current) drug therapy; Z88.0 Allergy status to penicillin; Z91.018 Allergy to other foods
CPT/HCPCS: 71045; 94640; 99285; J7613; J7620; 99284; A9270-GY